=== PATIENT | female | born 1930 | race Caucasian/White ===

== ENCOUNTER 2018-02-21 10:08 | Emergency (ER) | payer OTHER ==
[2018-02-21] MEDS ORDERED: LIDOCAINE 1% W/EPI 1:100,000 MDV 50 ML VIAL ONE (10:27)
--- NOTE | 2018-02-21 11:11 | ER ---
Nurse's Notes [facility] Name: Beata Mayer Age: 87 yrs Sex: Female : 1930 Arrival Date: 02/21/2018 Time: 10:12 Bed 6 Private MD: Diagnosis: Cutaneous abscess of buttock Presentation: 02/21 10:12 Presenting complaint: EMS states: sent here for I\T\D of abscess to left buttock. EMS aa5 reports pt's O2 sat was 84% RA and increased to 98% via 4 L NC, EMS denies any respiratory distress. [facility] reported pt was recently diagnosed with Pneumonia and began taking Levaquin 500 mg Daily 02/19/18. Transition of care: patient was received from another setting of care (long-term care facility), [facility]. Onset of symptoms was February 21, 2018. Risk Assessment: Do you want to hurt yourself or someone else? Other: Pt is confused, Hx. Alzheimer's. Care prior to arrival: None. 10:12 Method Of Arrival: EMS: [facility] aa5 10:12 Acuity: KELBY 3 aa5 10:29 Initial Sepsis Screen: Does the patient meet any 2 criteria? No. Patient's initial la1 sepsis screen is negative. Does the patient have a suspected source of infection? Yes: Skin breakdown/wound. Historical: - Allergies: 10:18 Morphine; aa5 10:18 PENICILLINS; aa5 10:18 sertraline; aa5 - Home Meds: 10:33 Levaquin 500 mg Oral tab 1 tab once daily [Active]; Lantus 100 unit/mL Sub-Q soln 25 aa5 units once a day [Active]; Santyl 250 unit/gram Topical oint apply to R buttock I\T\D sites daily [Active]; tramadol 50 mg Oral tab 1 tab every 6 hours [Active]; Acidophilus Oral cap daily [Active]; Risperdal 0.5 mg Oral tab at bedtime [Active]; GlycoLax 17 gram/dose oral powd once daily [Active]; Exelon 4.6 mg/24 hr transdermal pt24 once daily [Active]; trazodone 50 mg Oral tab at bedtime [Active]; docusate sodium 100 mg Oral cap 2 times per day [Active]; Novolog Sub-Q per sliding scale [Active]; folic acid 800 mcg Oral tab once daily [Active]; amlodipine 5 mg tab once daily [Active]; nitrofurantoin macrocrystal 100 mg Oral cap once daily [Active]; canagliflozin oral oral [Active]; aspirin 81 mg Oral chew 1 tab once daily [Active]; lisinopril 40 mg Oral tab 1 tab once daily [Active]; sitagliptin oral oral 100mg once a day [Active]; Namenda 10 mg oral tab 1 tab 2 times per day [Active]; carvedilol 12.5 mg oral tab 2 times per day [Active]; omeprazole 20 mg Oral cpDR once daily [Active]; [place] Thyroid 30 mg Oral tab daily [Active]; Triamcinolone Acetonide [place] apply to rash as needed [Active]; acetaminophen 650 mg Oral TbER every 6 hours as needed [Active]; - PMHx: 10:18 Arthritis; Urinary incontinence; Hypothyroidism; Hypertension; GERD; Diabetes - NIDDM; aa5 Alzheimers; Depression; Anxiety; Pneumonia; 10:18 COPD; aa5 - PSHx: 10:18 Knee surgery; hip surgery; aa5 - Immunization history:: Adult Immunizations up to date. - Ebola Screening: : No symptoms or risks identified at this time. - Social history:: Smoking status: unknown. Screenin:29 Abuse screen: Denies threats or abuse. Nutritional screening: No deficits noted. la1 Tuberculosis screening: No symptoms or risk factors identified. Fall Risk No fall in past 12 months (0 pts). Secondary diagnosis (15 points) No IV (0 pts). Ambulatory Aid- None/Bed Rest/Nurse Assist (0 pts). Gait- Normal/Bed Rest/Wheelchair (0 pts) Mental Status- Overestimates/Forgets Limitations (15 pts.). Total Caldera Fall Scale indicates High Risk Score (45 or more points). Side Rails Up X 2. Assessment: 10:25 Reassessment: Abscess noted to left gluteus, approximately quater-sized, no drainage aa5 noted. . 10:28 General: Appears in no apparent distress. Behavior is calm, cooperative. Pain: Denies la1 pain. Neuro: Level of Consciousness is awake, alert, obeys commands, Oriented to person. Cardiovascular: Capillary refill < 3 seconds Patient's skin is warm and dry. Respiratory: Airway is patent Respiratory effort is even, unlabored, Respiratory pattern is regular, symmetrical, Breath sounds are diminished bilaterally. GI: Abdomen is obese, Bowel sounds present X 4 quads. Abd is soft and non tender X 4 quads. : No signs and/or symptoms were reported regarding the genitourinary system. 11:13 Reassessment: Patient appears in no apparent distress at this time. Patient and/or ch family updated on plan of care and expected duration. Pain level reassessed. 11:15 Reassessment: Report given to WENDI Reddy at [facility], nurse reports they aa5 will arrange transportation back to group home. . Vital Signs: 10:26 BP 127 / 87; Pulse 72; Resp 18; Temp 98.4; Pulse Ox 97% on R/A; la1 11:51 BP 120 / 75; Pulse 70; Resp 18; Pulse Ox 96% on R/A; la1 ED Course: 10:12 Patient arrived in ED. aa5 10:12 Arm band placed on. aa5 10:13 Cj Almodovar PA is PHCP. [facility] 10:13 Iker Pichardo MD is Attending Physician. [facility] 10:20 Triage completed. aa5 10:26 Bar Barrera RN is Primary Nurse. la1 10:29 Placed in gown. Bed in low position. Call light in reach. Pulse ox on. NIBP on. la1 10:50 Assist provider with I \T\ D: of an abscess on left gluteus Set up I\T\D tray. Performed by aa 5 Cj JAIME Wound packed. iodoform gauze, Dressing with gauze and tegaderm Patient tolerated well. 12:00 Patient did not have IV access during this emergency room visit. aa5 Administered Medications: 10:30 Drug: Lidocaine (1 %) 20 ml Volume: 20 ml; Route: Infiltration; la1 11:52 Follow up: Response: No adverse reaction la1 Outcome: 11:10 Discharge ordered by . [facility] 12:00 Discharged to group home. Report called to ASHLEY Hoover aa5 12:00 Condition: stable 12:00 Discharge instructions given to pt's nurse Instructed on discharge instructions, medication usage, Demonstrated understanding of instructions, follow-up care, medications. 12:04 Patient left the ED. aa5 Signatures: Ai Bowling, RN RN Cj Almodovar PA PA jmm Calderon, Audri, RN RN aa5 Bar Barrera RN RN la1 Corrections: (The following items were deleted from the chart) 10:28 10:26 BP 127 / 87; Pulse 72bpm; Resp 18bpm; Pulse Ox 99% 4 lpm Nasal Cannula; la1 la1 11:11 10:12 Transition of care: patient was not received from another setting of care. aa5 la1
--- NOTE | 2018-02-21 11:11 | EDPHYS ---
Physician Documentation [facility] Name: Beata Mayer Age: 87 yrs Sex: Female : 1930 Arrival Date: 02/21/2018 Time: 10:12 Bed 6 Private MD: ED Physician Iker Pichardo HPI: 02/21 10:28 This 87 yrs old Female presents to ER via EMS with complaints of Abscess. [facility] 10:28 The patient presents with an abscess of the left gluteus chary. Onset: The [facility] symptoms/episode began/occurred at an unknown time. Possible cause(s): unknown. Associated signs and symptoms: Pertinent negatives: fever. This is an 87 year old female with a history of HTN, hypothyroidism that presents to the ED with an abscess to the left buttock. According to EMS the patient is currently on day 2 of Levaquin for pneumonia. . Historical: - Allergies: 10:18 Morphine; aa5 10:18 PENICILLINS; aa5 10:18 sertraline; aa5 - Home Meds: 10:33 Levaquin 500 mg Oral tab 1 tab once daily [Active]; Lantus 100 unit/mL Sub-Q soln 25 aa5 units once a day [Active]; Santyl 250 unit/gram Topical oint apply to R buttock I\T\D sites daily [Active]; tramadol 50 mg Oral tab 1 tab every 6 hours [Active]; Acidophilus Oral cap daily [Active]; Risperdal 0.5 mg Oral tab at bedtime [Active]; GlycoLax 17 gram/dose oral powd once daily [Active]; Exelon 4.6 mg/24 hr transdermal pt24 once daily [Active]; trazodone 50 mg Oral tab at bedtime [Active]; docusate sodium 100 mg Oral cap 2 times per day [Active]; Novolog Sub-Q per sliding scale [Active]; folic acid 800 mcg Oral tab once daily [Active]; amlodipine 5 mg tab once daily [Active]; nitrofurantoin macrocrystal 100 mg Oral cap once daily [Active]; canagliflozin oral oral [Active]; aspirin 81 mg Oral chew 1 tab once daily [Active]; lisinopril 40 mg Oral tab 1 tab once daily [Active]; sitagliptin oral oral 100mg once a day [Active]; Namenda 10 mg oral tab 1 tab 2 times per day [Active]; carvedilol 12.5 mg oral tab 2 times per day [Active]; omeprazole 20 mg Oral cpDR once daily [Active]; [place] Thyroid 30 mg Oral tab daily [Active]; Triamcinolone Acetonide [place] apply to rash as needed [Active]; acetaminophen 650 mg Oral TbER every 6 hours as needed [Active]; - PMHx: 10:18 Arthritis; Urinary incontinence; Hypothyroidism; Hypertension; GERD; Diabetes - NIDDM; aa5 Alzheimers; Depression; Anxiety; Pneumonia; 10:18 COPD; aa5 - PSHx: 10:18 Knee surgery; hip surgery; aa5 - Immunization history:: Adult Immunizations up to date. - Ebola Screening: : No symptoms or risks identified at this time. - Social history:: Smoking status: unknown. ROS: 10:28 Constitutional: Negative for fever, chills, and weight loss, Cardiovascular: Negative [facility] for chest pain, palpitations, and edema, Respiratory: Negative for shortness of breath, cough, wheezing, and pleuritic chest pain. 10:28 Skin: Positive for swelling. 10:28 All other systems are negative. Exam: 10:28 Head/Face: atraumatic. Chest/axilla: Normal chest wall appearance and motion. [facility] Cardiovascular: Regular rate and rhythm. No edema appreciated Respiratory: Normal respirations, no respiratory distress appreciated 10:28 Constitutional: The patient appears alert, anxious. 10:28 Abdomen/GI: Inspection: obese 10:28 Skin: fluctuant abscess noted to the left buttock. . 10:28 Neuro: Orientation: is normal, Mentation: is normal, Memory: is normal. Vital Signs: 10:26 BP 127 / 87; Pulse 72; Resp 18; Temp 98.4; Pulse Ox 97% on R/A; la1 11:51 BP 120 / 75; Pulse 70; Resp 18; Pulse Ox 96% on R/A; la1 Procedures: 11:08 I \T\ D: Incision and drainage was performed for an abscess of the left Prepped with [facility] Betadine, Anesthetized with 10 ml's 1% Lidocaine. Incised with #11 blade. Drained small amount purulent fluid. Loculations removed. Abscess cavity explored. Packed with iodoform gauze, Dressing: sterile 4x4 gauze, the patient tolerated the procedure well. MDM: 10:24 Patient medically screened. [facility] 11:08 Data reviewed: vital signs, nurses notes. Counseling: I had a detailed discussion with luis the patient and/or guardian regarding: the historical points, exam findings, and any diagnostic results supporting the discharge/admit diagnosis, the need for outpatient follow up, to return to the emergency department if symptoms worsen or persist or if there are any questions or concerns that arise at home. Administered Medications: 10:30 Drug: Lidocaine (1 %) 20 ml Volume: 20 ml; Route: Infiltration; la1 11:52 Follow up: Response: No adverse reaction la1 Disposition: 02/21/18 11:10 Discharged to Home. Impression: Cutaneous abscess of buttock. - Condition is Stable. - Discharge Instructions: Skin Abscess. - Prescriptions for Clindamycin HCl 300 mg Oral Capsule - take 1 capsule by ORAL route every 6 hours for 10 days; 40 capsule. - Medication Reconciliation Form, Thank You Letter, Antibiotic Education, Prescription Opioid Use form. - Follow up: Private Physician; When: 2 - 3 days; Reason: Recheck today's complaints, Continuance of care, Re-evaluation by your physician. Addendum: 02/23/2018 07:49 Co-signature as Attending Physician, Iker Pichardo MD I agree with the assessment and w a plan of care. Signatures: Cj Almodovar PA PA Payton Anderson, RN RN aa5 Bar Barrera RN RN la1 Iker Pichardo MD MD al Corrections: (The following items were deleted from the chart) 02/21 12:04 11:10 02/21/2018 11:10 Discharged to Home. Impression: Cutaneous abscess of buttock. aa5 Condition is Stable. Forms are Medication Reconciliation Form, Thank You Letter, Antibiotic Education, Prescription Opioid Use. Follow up: Private Physician; When: 2 - 3 days; Reason: Recheck today's complaints, Continuance of care, Re-evaluation by your physician. luis
[2018-02-21 12:09] VITALS: TEMP 98.4
[2018-02-21 12:11] VITALS: BP 120/75; O2SAT 96
== END 2018-02-21 12:04 | disposition home or self-care (01) ==
LOC: ER 10:08
PROC: 0J990ZZ Drainage of Buttock Subcutaneous Tissue and Fascia, Open Approach (ICD-10-PCS; principal; 2018-02-21)
DX: L02.31 Cutaneous abscess of buttock (principal); Z88.0 Allergy status to penicillin; Z88.6 Allergy status to analgesic agent; K21.9 Gastro-esophageal reflux disease without esophagitis; E11.9 Type 2 diabetes mellitus without complications; E03.9 Hypothyroidism, unspecified; I10 Essential (primary) hypertension; F41.8 Other specified anxiety disorders
CPT/HCPCS: 99284

== ENCOUNTER 2018-06-26 08:03 | Inpatient (IN) | payer OTHER ==
[2018-06-26] MEDS ORDERED: METHYLPREDNISOLONE 125 MG INJ ONE (08:28)
[2018-06-26] MEDS ORDERED: LEVALBUTEROL 1.25 MG/3 ML NEB ONE (08:28)
[2018-06-26] MEDS ORDERED: MAGNESIUM SULFATE 1 gm IVPB 1 GM/100 ML BAG IV ONE (08:29)
--- NOTE | 2018-06-26 09:02 | RAD REPORT ---
EXAM DESCRIPTION: RAD - Chest Single View - 06/26/2018 8:55 am CLINICAL HISTORY: Dyspnea;Cough Chest pain. COMPARISON: CHEST SINGLE VIEW dated 11/01/2011; CHEST SINGLE VIEW dated 09/04/2011 FINDINGS: Portable technique limits examination quality. Mild interstitial pulmonary edema seen. The heart is enlarged moderately. Chronic deformity of proxim al right humerus and advanced degenerative change left shoulder remain stable. IMPRESSION: Mild CHF.
[2018-06-26 09:08] LABS: BUN Blood Urea Nitrogen 19 mg/dL (7-18); Bicarbonate 27 mmol/L (21-32); Glucose Level 124 mg/dL (74-106); Magnesium 1.6 mg/dL (1.8-2.4); NT PRO-BNP 1276 pg/mL (<450); Sodium Level 141 mmol/L (136-145); Troponin (Emerg Dept Use Only) < 0.02 ng/mL (0.0-0.045)
--- NOTE | 2018-06-26 10:47 | EDPHYS ---
Physician Documentation [facility] Name: Beata Mayer Age: 87 yrs Sex: Female : 1930 Arrival Date: 06/26/2018 Time: 08:09 Bed 3 Private MD: ED Physician William Patten HPI: 06/26 08:20 This 87 yrs old Female presents to ER via Unassigned with complaints of rn Shortness Of Breath. 08:20 The patient has shortness of breath at rest. Onset: The symptoms/episode began/occurred rn at an unknown time. Duration: The symptoms are continuous. The patient's shortness of breath has no apparent modifying factors. Severity of symptoms: At their worst the symptoms were moderate in the emergency department the symptoms have improved. It is unknown whether or not the patient has had similar symptoms in the past. Per EMS, patient with hx of COPD, noted to have decreased responsiveness and AMS this AM, unknown onset, low O2, was found hunched over, EMS sat her up and administered O2 and albuterol with patient now at baseline, which per shelter is oriented x 1. . Historical: - Allergies: 09:56 Morphine; sv 09:56 PENICILLINS; sv 09:56 sertraline; sv - Home Meds: 11:03 acetaminophen 650 mg Oral TbER every 6 hours as needed [Active]; Acidophilus Oral cap aj1 daily [Active]; amlodipine 5 mg oral tab [Active]; [place] Thyroid 30 mg Oral tab daily [Active]; aspirin 81 mg Oral TbEC 1 tab once daily [Active]; canagliflozin 300 mg Oral once daily [Active]; carvedilol 12.5 mg Oral tab 2 times per day [Active]; docusate sodium 100 mg Oral cap once daily [Active]; folic acid 800 mcg Oral tab once daily [Active]; GlycoLax 17 gram/dose Oral powd once daily [Active]; Januvia 100 mg Oral tab 1 tab once daily [Active]; Lantus 100 unit/mL Sub-Q soln 25 units once a day [Active]; lisinopril 40 mg Oral tab 1 tab once daily [Active]; Namenda 10 mg Oral tab 1 tab 2 times per day [Active]; nitrofurantoin macrocrystal 100 mg Oral cap once daily [Active]; Novolog Sub-Q per sliding scale [Active]; omeprazole 20 mg Oral cpDR 1 cap once daily [Active]; Risperdal 0.5 mg Oral tab at bedtime [Active]; Depakote 125 mg Oral TbEC 1 tab 2 times per day [Active]; - PMHx: 09:56 Alzheimers; Anxiety; Arthritis; COPD; Dementia; Depression; Diabetes - NIDDM; GERD; sv Hypertension; Hypothyroidism; Pneumonia; Urinary incontinence; - PSHx: 09:56 Knee surgery; hip surgery; sv - Immunization history:: Adult Immunizations up to date. - Social history:: Smoking status: Patient/guardian denies using tobacco. - Family history:: not pertinent. - Ebola Screening: : No symptoms or risks identified at this time. - Hospitalizations: : No recent hospitalization is reported. - Code Status:: Full code. ROS: 08:20 Constitutional: Negative for fever, chills, and weight loss, Eyes: Negative for injury, rn pain, redness, and discharge, ENT: Negative for injury, pain, and discharge, Cardiovascular: Negative for chest pain, palpitations, and edema, Respiratory: Negative for pleuritic chest pain Abdomen/GI: Negative for abdominal pain, nausea, vomiting, diarrhea, and constipation, MS/Extremity: Negative for injury and deformity, Skin: Negative for injury, rash, and discoloration, Neuro: Negative for headache, weakness, numbness, tingling, and seizure. Exam: 08:20 Constitutional: This is a well developed, well nourished patient who is sleeping, rn awakens to voice Head/Face: Normocephalic, atraumatic. Eyes: Pupils equal round and reactive to light, extra-ocular motions intact. Lids and lashes normal. Conjunctiva and sclera are non-icteric and not injected. Cornea within normal limits. Periorbital areas with no swelling, redness, or edema. ENT: dry MM Cardiovascular: Regular rate and rhythm. No JVD. No pulse deficits. Respiratory: + mild tachypnea with diffuse exp wheezing, no retractions Abdomen/GI: soft, non-tender Skin: Warm, dry Neuro: Sleeping, awakens to voice, responds and localizes to painful stimuli/IV placement, doesn't answer commands. Vital Signs: 08:06 BP 129 / 68; Pulse 78; Resp 26; Temp 98(A); Pulse Ox 100% on 2 lpm NC; Pain 0/10; sv 09:00 BP 117 / 84; Pulse 78; Resp 28; Pulse Ox 97% on 2 lpm NC; sv 09:30 BP 124 / 73; Pulse 73 MON; Resp 23; Pulse Ox 97% on 2 lpm NC; sv 10:38 BP 130 / 98; Pulse 84; Resp 24; Pulse Ox 98% on 2 lpm NC; aj1 11:47 BP 127 / 88; Pulse 74; Resp 20; Pulse Ox 93% on R/A; aj1 16:21 BP 117 / 10; Pulse 75; Resp 20; Pulse Ox 94% on R/A; aj1 09:30 A fib sv MDM: 08:09 Patient medically screened. rn 10:43 Differential diagnosis: Anxiety Reaction CHF exacerbation, Chronic Obstructive rn Pulmonary Disease Myocardial Infarction Pneumothorax pulmonary edema, Sepsis. Data reviewed: vital signs, nurses notes, lab test result(s), EKG, radiologic studies, plain films, and as a result, I will admit patient. Counseling: I had a detailed discussion with the patient and/or guardian regarding: the historical points, exam findings, and any diagnostic results supporting the discharge/admit diagnosis, lab results, radiology results, the need for further work-up and treatment in the hospital. Response to treatment: the patient's symptoms have mildly improved after treatment, and as a result, I will admit patient. Admission orders: after a detailed discussion of the patient's condition and case, the admit orders are written by me. ED course: Pt with hypxia and AMS, improved with breathing treatments, no pneumonia on CXR, awaiting urine sample, will admit to Dr. Nguyen for CHF/COPD exacerbation and AMS.. 06/26 08:12 Order name: Blood Culture Adult (2) rn 06/26 08:12 Order name: BMP; Complete Time: :30 rn 06/26 08:12 Order name: CBC with Diff rn 06/26 08:12 Order name: Magnesium; Complete Time: : rn 06/26 08:12 Order name: NT PRO-BNP; Complete Time: 09:31 rn 06/26 08:12 Order name: Troponin (emerg Dept Use Only); Complete Time: : rn 06/26 08:12 Order name: XRAY CXR (1 view); Complete Time: 09:04 rn 06/26 08:12 Order name: Flu; Complete Time: 09:04 rn 06/26 08:46 Order name: Urine Microscopic Only rn 06/26 08:46 Order name: Urine Culture rn 06/26 11:24 Order name: Urine Dipstick--Ancillary (enter results) eb 06/26 08:12 Order name: EKG; Complete Time: 08:13 rn 06/26 08:12 Order name: Cardiac monitoring; Complete Time: 09: rn 06/26 08:12 Order name: EKG - Nurse/Tech; Complete Time: 09: rn 06/26 08:12 Order name: IV Saline Lock; Complete Time: 09: rn 06/26 08:12 Order name: Labs collected and sent; Complete Time: : rn 06/26 08:12 Order name: O2 Per Protocol; Complete Time: 09: rn 06/26 08:12 Order name: O2 Sat Monitoring; Complete Time: 09: rn 06/26 08:46 Order name: Urine Dipstick-Ancillary (obtain specimen); Complete Time: 11:24 rn 06/26 11:44 Order name: CONS Physician Consult EDMS Administered Medications: 08:15 Drug: Xopenex (3) 1.25 mg Route: Inhalation; sv 08:28 Drug: SOLU-Medrol 125 mg Route: IVP; Site: right hand; sv 09:00 Follow up: Response: No adverse reaction sv 08:30 Drug: Magnesium Sulfate 1 grams Route: IVPB; Infused Over: 1 hrs; Site: right hand; sv 09:30 Follow up: Response: No adverse reaction; IV Status: Completed infusion; IV Intake: sv 100ml 11:29 Drug: Lasix 20 mg Route: IVP; Site: right forearm; aj1 11:48 Follow up: Response: No adverse reaction aj1 Disposition: 06/26/18 10:46 Hospitalization ordered by Ania Nguyen for Inpatient Admission. Preliminary diagnosis are Dyspnea, unspecified, Altered mental status, unspecified, Chronic obstructive pulmonary disease, unspecified, Pulmonary edema. - Bed requested for Intensive Care Unit. - Status is Inpatient Admission. aj1 - Condition is Stable. - Problem is new. - Symptoms have improved. UTI on Admission? No Signatures: Dispatcher [employer] EDMS Margaret Irvin RN RN aj1 Sonia Lemon RN RN Radha Garner, ASHLEY RAMIREZ William Patten MD MD clinical quality rn: (The following items were deleted from the chart) 14:54 10:46 Hospitalization Ordered by Ania Nguyen MD for Inpatient Admission. Preliminary dw diagnosis is Dyspnea, unspecified; Altered mental status, unspecified; Chronic obstructive pulmonary disease, unspecified; Pulmonary edema. Bed requested for Telemetry/MedSurg (Inpatient). Status is Inpatient Admission. Condition is Stable. Problem is new. Symptoms have improved. UTI on Admission? No. rn 15:53 14:54 06/26/2018 10:46 Hospitalization Ordered by Ania Nguyen MD for Inpatient dw Admission. Preliminary diagnosis is Dyspnea, unspecified; Altered mental status, unspecified; Chronic obstructive pulmonary disease, unspecified; Pulmonary edema. Bed requested for Intensive Care Unit. Status is Inpatient Admission. Condition is Stable. Problem is new. Symptoms have improved. UTI on Admission? No. dw 17:04 15:53 06/26/2018 10:46 Hospitalization Ordered by Ania Nguyen MD for Inpatient aj1 Admission. Preliminary diagnosis is Dyspnea, unspecified; Altered mental status, unspecified; Chronic obstructive pulmonary disease, unspecified; Pulmonary edema. Bed requested for Intensive Care Unit. Status is Inpatient Admission. Condition is Stable. Problem is new. Symptoms have improved. UTI on Admission? No. dw
--- NOTE | 2018-06-26 10:47 | ER ---
Nurse's Notes [facility] Name: Beata Mayer Age: 87 yrs Sex: Female : 1930 Arrival Date: 06/26/2018 Time: 08:09 Bed 3 Private MD: Diagnosis: Dyspnea, unspecified;Altered mental status, unspecified;Chronic obstructive pulmonary disease, unspecified;Pulmonary edema Presentation: 06/26 08:03 Presenting complaint: EMS states: called out for unresponsiveness, O2 82% on O2 \T\ 2L sv per NC, warm to touch, upper lobes wheezing, lower lobes rhonchi, productive cough, Temp 99.9 SR-100 BP 112/70 BS-111, 20G R AC, Albuterol x 1. Pt's normal is alert to self. Transition of care: patient was received from another setting of care (long-term care [facility]), [facility]. Onset of symptoms was June 26, 2018. Risk Assessment: Do you want to hurt yourself or someone else? Patient reports no desire to harm self or others. Initial Sepsis Screen: Does the patient meet any 2 criteria? RR > 20 per min. Yes Does the patient have a suspected source of infection? No. Patient's initial sepsis screen is negative. Care prior to arrival: Medication(s) given: Albuterol Neb x 1, IV initiated. 20 GA, in the right antecubital area, Glucose check: 111. 08:03 Method Of Arrival: EMS: [facility] sv 09:45 Acuity: KELBY 2 dm5 Triage Assessment: 08:05 General: Appears uncomfortable, obese, Behavior is agitated, uncooperative. Pain: sv Denies pain. Neuro: Level of Consciousness is awake, alert, confused, Oriented to person, Moves all extremities. Respiratory: Airway is patent Respiratory effort is even, labored, Respiratory pattern is symmetrical, tachypnea Breath sounds with wheezes bilaterally. Onset: The symptoms/episode began/occurred this morning, the patient has moderate shortness of breath. Derm: Skin is normal. Historical: - Allergies: 09:56 Morphine; sv 09:56 PENICILLINS; sv 09:56 sertraline; sv - Home Meds: 11:03 acetaminophen 650 mg Oral TbER every 6 hours as needed [Active]; Acidophilus Oral cap aj1 daily [Active]; amlodipine 5 mg oral tab [Active]; [place] Thyroid 30 mg Oral tab daily [Active]; aspirin 81 mg Oral TbEC 1 tab once daily [Active]; canagliflozin 300 mg Oral once daily [Active]; carvedilol 12.5 mg Oral tab 2 times per day [Active]; docusate sodium 100 mg Oral cap once daily [Active]; folic acid 800 mcg Oral tab once daily [Active]; GlycoLax 17 gram/dose Oral powd once daily [Active]; Januvia 100 mg Oral tab 1 tab once daily [Active]; Lantus 100 unit/mL Sub-Q soln 25 units once a day [Active]; lisinopril 40 mg Oral tab 1 tab once daily [Active]; Namenda 10 mg Oral tab 1 tab 2 times per day [Active]; nitrofurantoin macrocrystal 100 mg Oral cap once daily [Active]; Novolog Sub-Q per sliding scale [Active]; omeprazole 20 mg Oral cpDR 1 cap once daily [Active]; Risperdal 0.5 mg Oral tab at bedtime [Active]; Depakote 125 mg Oral TbEC 1 tab 2 times per day [Active]; - PMHx: 09:56 Alzheimers; Anxiety; Arthritis; COPD; Dementia; Depression; Diabetes - NIDDM; GERD; sv Hypertension; Hypothyroidism; Pneumonia; Urinary incontinence; - PSHx: 09:56 Knee surgery; hip surgery; sv - Immunization history:: Adult Immunizations up to date. - Social history:: Smoking status: Patient/guardian denies using tobacco. - Family history:: not pertinent. - Ebola Screening: : No symptoms or risks identified at this time. - Hospitalizations: : No recent hospitalization is reported. - Code Status:: Full code. Screenin:38 Abuse screen: Denies threats or abuse. Denies injuries from another. Nutritional aj1 screening: No deficits noted. Tuberculosis screening: No symptoms or risk factors identified. 16:57 Fall Risk aj1 16:58 Fall Risk No fall in past 12 months (0 pts). Secondary diagnosis (15 points) aj1 Alzheimer's, dementia, IV access (20 points). Ambulatory Aid- None/Bed Rest/Nurse Assist (0 pts). Gait- Normal/Bed Rest/Wheelchair (0 pts) Mental Status- Overestimates/Forgets Limitations (15 pts.). Total Caldera Fall Scale indicates High Risk Score (45 or more points). Frequent Obs/Assessments Occuring Family Present and informed to notify staff if the need to leave the bedside. Assessment: 08:30 Reassessment: Patient appears in no apparent distress at this time. No changes from sv previously documented assessment. Patient and/or family updated on plan of care and expected duration. Pain level reassessed. 09:30 Reassessment: Patient appears in no apparent distress at this time. No changes from sv previously documented assessment. Patient and/or family updated on plan of care and expected duration. Pain level reassessed. Pt appears to be sleeping with eyes closed. Family at the bedside. 10:38 General: Appears in no apparent distress. comfortable, Behavior is restless, aj1 uncooperative. Pain: Unable to use pain scale. Does not appear to understand pain scale. FLACC scale score is 0 out of 10. Neuro: Level of Consciousness is awake, alert, Oriented to person. Cardiovascular: Patient's skin is warm and dry. Rhythm is atrial fibrillation. Respiratory: Airway is patent Respiratory effort is even, unlabored, Respiratory pattern is regular, symmetrical, Breath sounds with rhonchi bilaterally. Parent/caregiver reports the patient having cough that is productive, persistent. GI: No signs and/or symptoms were reported involving the gastrointestinal system. : No signs and/or symptoms were reported regarding the genitourinary system. Derm: No signs and/or symptoms reported regarding the dermatologic system. Skin is pink, warm \T\ dry. normal. Musculoskeletal: Circulation, motion, and sensation intact. 11:46 Reassessment: Patient appears in no apparent distress at this time. No changes from aj1 previously documented assessment. Patient and/or family updated on plan of care and expected duration. Pain level reassessed. General:. Neuro: Level of Consciousness is awake, alert, Oriented to person. Cardiovascular: Patient's skin is warm and dry. Rhythm is atrial fibrillation. Respiratory: Airway is patent Respiratory effort is even, unlabored, Respiratory pattern is regular, symmetrical. 12:45 Reassessment: Patient appears in no apparent distress at this time. No changes from aj1 previously documented assessment. Patient and/or family updated on plan of care and expected duration. Pain level reassessed. 13:22 Reassessment: Patient appears in no apparent distress at this time. No changes from aj1 previously documented assessment. Patient and/or family updated on plan of care and expected duration. Pain level reassessed. 14:30 Reassessment: Patient appears in no apparent distress at this time. No changes from aj1 previously documented assessment. Patient and/or family updated on plan of care and expected duration. Pain level reassessed. General: Appears in no apparent distress. comfortable, Behavior is calm, cooperative. Neuro: Level of Consciousness is awake, alert, Oriented to person. Cardiovascular: Patient's skin is warm and dry. Rhythm is atrial fibrillation. Respiratory: Airway is patent Respiratory effort is even, unlabored, Respiratory pattern is regular, symmetrical. GI: No signs and/or symptoms were reported involving the gastrointestinal system. : No signs and/or symptoms were reported regarding the genitourinary system. Derm: Skin is pink, warm \T\ dry. normal. Musculoskeletal: Circulation, motion, and sensation intact. 15:30 Reassessment: Patient appears in no apparent distress at this time. No changes from aj1 previously documented assessment. Patient and/or family updated on plan of care and expected duration. Pain level reassessed. 16:20 Reassessment: Patient appears in no apparent distress at this time. No changes from aj1 previously documented assessment. Patient and/or family updated on plan of care and expected duration. Pain level reassessed. Vital Signs: 08:06 BP 129 / 68; Pulse 78; Resp 26; Temp 98(A); Pulse Ox 100% on 2 lpm NC; Pain 0/10; sv 09:00 BP 117 / 84; Pulse 78; Resp 28; Pulse Ox 97% on 2 lpm NC; sv 09:30 BP 124 / 73; Pulse 73 MON; Resp 23; Pulse Ox 97% on 2 lpm NC; sv 10:38 BP 130 / 98; Pulse 84; Resp 24; Pulse Ox 98% on 2 lpm NC; aj1 11:47 BP 127 / 88; Pulse 74; Resp 20; Pulse Ox 93% on R/A; aj1 16:21 BP 117 / 10; Pulse 75; Resp 20; Pulse Ox 94% on R/A; aj1 09:30 A fib sv ED Course: 08:09 Patient arrived in ED. sv 08:09 William Patten MD is Attending Physician. rn 08:09 Sonia Lemon RN is Primary Nurse. sv 08:15 Arm band placed on. sv 08:25 Inserted saline lock: 20 gauge in right forearm, using aseptic technique. Blood bp collected. 08:52 XRAY CXR (1 view) In Process Unspecified. EDMS 09:28 EKG done, by ED staff, reviewed by William Patten MD. jb1 09:45 Triage completed. dm5 10:03 Report given to Serena RAMIREZ. sv 10:38 No provider procedures requiring assistance completed. aj1 10:38 Patient has correct armband on for positive identification. Bed in low position. Call aj1 light in reach. Side rails up X2. radiation monitor on. Pulse ox on. NIBP on. 10:45 Ania Nguyen MD is Hospitalizing Provider. rn 11:23 Urine collected: straight cath specimen, cloudy, jennifer colored. jb1 16:21 Patient admitted, IV remains in place. aj1 19:01 Primary Nurse role handed off by Sonia Lemon RN sv Administered Medications: 08:15 Drug: Xopenex (3) 1.25 mg Route: Inhalation; sv 08:28 Drug: SOLU-Medrol 125 mg Route: IVP; Site: right hand; sv 09:00 Follow up: Response: No adverse reaction sv 08:30 Drug: Magnesium Sulfate 1 grams Route: IVPB; Infused Over: 1 hrs; Site: right hand; sv 09:30 Follow up: Response: No adverse reaction; IV Status: Completed infusion; IV Intake: sv 100ml 11:29 Drug: Lasix 20 mg Route: IVP; Site: right forearm; aj1 11:48 Follow up: Response: No adverse reaction aj Intake: 09:30 IV: 100ml; Total: 100ml. sv Outcome: 10:46 Decision to Hospitalize by Provider. rn 16:56 Admitted to ICU accompanied by nurse, via stretcher, with chart, Report called to aj1 ASHLEY Simmons 16:56 Condition: stable 16:56 Discharge instructions given to family, Instructed on the need for admit, Demonstrated understanding of instructions. 17:04 Patient left the ED. aj1 Signatures: Dispatcher [employer] EDMS RodneyChaz jb1 Margaret Irvin RN RN aj1 Markwardt, Deana, RN RN dmSonia Escobar RN RN Patten, William, MD MD rn Beverly, Chetan, RN RN bp
[2018-06-26] MEDS ORDERED: FUROSEMIDE 20 MG/ 2ML VIAL ONE (11:36)
[2018-06-26 11:40] LABS: Urine Bacteria <20 /HPF (<20); Urine Culture Reflex Order NOT NEEDED
[2018-06-26 11:41] LABS: Urine Mucus 2+ /HPF (NONE SEEN)
[2018-06-26 11:43] LABS: Urine Blood TRACE (NEG); Urine Glucose 3+ (NEG); Urine Protein NEGATIVE (NEG); Urine pH 5.5 (5.0-7.0)
--- NOTE | 2018-06-26 14:01 | EKG ---
Test Date: 2018-06-26 Test Time: 08:50:42 Aerodynamic Consultant: PAUL MEASUREMENT RESULTS: Intervals: Rate: 72 WA: QRSD: 84 QT: 368 QTc: 402 Pierce: P: WA: QRS: -1 T: 23 INTERPRETIVE STATEMENTS: Atrial fibrillation Low voltage QRS Cannot rule out Anterior infarct, age undetermined Abnormal ECG Compared to ECG 07/07/2017 09:18:32 Low QRS voltage now present Myocardial infarct finding now present Sinus bradycardia no longer present Electronically Signed On 06-26-18 13:58:44 HOSPITAL MANAGER by Chance Salazar
--- NOTE | 2018-06-26 14:01 | ECHO ---
HEIGHT: ft in WEIGHT: lb oz DATE OF STUDY: 06/16/[address]: Ania Nguyen MD 2-DIMENSIONAL: YES M.MODE: YES DOPPLER: YES COLOR FLOW: YES TDS: YES PORTABLE: DEFINITY: BUBBLE STUDY: DIAGNOSIS: CONGESTIVE HEART FAILURE EXACERBATION. CARDIAC HISTORY: CATHERIZATION: SURGERY: PROSTHETIC VALVE: PACEMAKER: MEASUREMENTS (cm) DIASTOLIC (NORMALS) SYSTOLIC (NORMALS) IVSd 1.4 (0.6-1.2) LA Diam 4.0 (1.9-4.0) LVEF 53% LVIDd 4.5 (3.5-5.7) LVIDs 3.3 (2.0-3.5) %FS 27% LVPWd 1.4 (0.6-1.2) Ao Diam 2.4 (2.0-3.7) 2 DIMENSIONAL ASSESSMENT: RIGHT ATRIUM: NORMAL LEFT ATRIUM: NORMAL RIGHT VENTRICLE: NORMAL LEFT VENTRICLE: NORMAL TRICUSPID VALVE: NORMAL MITRAL VALVE: NORMAL PULMONIC VALVE: NORMAL AORTIC VALVE: SCLEROSIS PERICARDIAL EFFUSION: NONE AORTIC ROOT: NORMAL LEFT VENTRICULAR WALL MOTION: NORMAL DOPPLER/COLOR FLOW: NORMAL COMMENTS: TECHNICALLY DIFFICULT STUDY. AORTIC SCLEROSIS. NORMAL LEFT VENTRICULAR SIZE AND FUNCTION. NO EFFUSION. TECHNOLOGIST: JDAEN MARIE
[2018-06-26 17:06] LABS: Absolute Lymphocytes (CBC) 0.3 K/uL (0.7-4.9); Absolute Monocytes 0.1 K/uL (0.1-1.3); Absolute Neutrophil 3.3 K/uL (1.8-8.0); Basophils % 0.4 % (0-1.3); Eosinophils % 0.1 % (0-4.4); Hematocrit 42.7 % (36.0-45.0); Lymphocytes % 9.2 % (15.3-44.8); MPV 9.4 fL (7.6-11.3); Monocytes % 2.9 % (3.3-12.3)
[2018-06-26] MEDS ORDERED: ACETAMINOPHEN 500 MG TAB PO PRN (17:08)
[2018-06-26] MEDS: ALBUTEROL 2.5 MG/3 ML NEB SOL NEB SCH ×2 (17:08→20:05)
[2018-06-26] MEDS: IPRATROPIUM BROM 0.5MG/2.5ML NEB SCH ×2 (17:08→20:05)
[2018-06-26] MEDS ORDERED: ONDANSETRON 4 MG/2 ML VIAL IV PRN (17:08)
[2018-06-26] MEDS ORDERED: D50W 25 GM/50 ML SYRINGE IV PRN (17:09)
[2018-06-26] MEDS ORDERED: GLUCAGON 1 MG/VIAL IM PRN (17:09)
--- NOTE | 2018-06-26 17:18 | P.HP ---
Certification for Inpatient Patient admitted to: Inpatient With expected LOS: >2 Midnights Patient will require the following post-hospital care: None Practitioner: I am a practitioner with admitting privileges, knowledge of patient current condition, hospital course, and medical plan of care. Services: Services provided to patient in accordance with Admission requirements found in Title 42 Section 412.3 of the Code of Federal Regulations Patient History Date of Service: 06/26/18 Reason for admission: SOB and AMS History of Present Illness: This is a 87-year-old female with significant past medical history of hypertension, diabetes, COPD, possible CHF, who presented to the ED from the alf with minimal responsiveness. Patient when initially picked up by EMS her oxygen saturation was 80-81%. Patient was given breathing treatment and along with oxygen by the EMS. Patient did have some improvement however when seen in the ER by the ER physician patient had minimal responsiveness and was having rales on physical exam. Most of the information was collected by the ER physician and EMS provider. I was not able to get any history on the patient has EMS provider was not available in no family was available at bedside. Patient was alert and oriented x1 during my exam. Patient does have a no flying dementia in usually is alert and oriented x1 however the change in responsiveness is what prompted a alf to send the patient here in the hospital. In the ER patient had lab work and imaging done. CBC is pending at this time along with pro calcitonin. X-ray was consistent with pulmonary edema versus COPD. Patient thus was admitted to the hospital for altered mental status and COPD exacerbation along with possible CHF exacerbation. Allergies Penicillins Allergy (Mild, Verified 06/26/18 17:21) Rash duloxetine HCl [From Cymbalta] Allergy (Verified 06/26/18 17:21) Unknown morphine Adverse Reaction (Severe, Verified 06/26/18 17:21) combative Zaukygg-[id number]-Mqh Reductase Inhibitor Allergy (Uncoded 06/26/18 17:21) Unknown Home Medications: Lisinopril 40 mg PO DAILY WITH BREAKFAST 09/05/11 Sitagliptin Phosphate [Januvia] 100 mg PO DAILY 09/05/11 Thyroid 30 mg PO DAILY 09/05/11 Amlodipine Besylate 10 mg PO DAILY WITH BREAKFAST 11/01/11 Omeprazole [Prilosec] 20 mg PO DAILY 11/01/11 Carvedilol [Coreg*] 12.5 mg PO BID 10/13/12 Memantine HCl [Namenda*] 10 mg PO BID 10/13/12 Albuterol Inhaler [Ventolin Inhaler*] 2 puff IH QID 06/15/13 Aspirin Enteric Coated [ASPIRIN 81 MG EC*] 81 mg PO DAILY 06/15/13 Budesonide/Formoterol Fumarate [Symbicort 160-4.5 Mcg Inhaler] 2 puff IH BID 12/20 Mirabegron [Myrbetriq] 25 mg PO DAILY 06/15/13 - Past Medical/Surgical History Diabetic: Yes Past Medical History: Unable to obtain Past Surgical History: Unable to obtain - Family History Family History: Reviewed- Non-Contributory - Social History Smoking Status: Unknown if ever smoked Alcohol use: No CD- Drugs: No Caffeine use: Yes Place of Residence: [facility] Review of Systems 10-point ROS is otherwise unremarkable Physical Examination - Physical Exam General: Demented, Mild distress HEENT: Atraumatic, PERRLA, Mucous membr. moist/pink, EOMI, Sclerae nonicteric Neck: Supple, 2+ carotid pulse no bruit, No LAD, Without JVD or thyroid abnormality Respiratory: Normal air movement, Crackles/rales, Expiratory wheezes, Inspiratory wheezes, Rhonchi/gurgles Cardiovascular: Regular rate/rhythm, Normal S1 S2 Gastrointestinal: Normal bowel sounds, No tenderness Musculoskeletal: No tenderness Integumentary: No rashes Neurological: Abnormal strength, Abnormal affect Lymphatics: No axilla or inguinal lymphadenopathy - Studies Laboratory Data (last 24 hrs) 06/26/18 08:30: WBC 4.1 L, Hgb DELIVERY AGENT, Hct DELIVERY AGENT, Plt Count DELIVERY AGENT 06/26/18 08:30: Sodium 141, Potassium 4.0, BUN 19 H, Creatinine 0.67, Glucose 124 H, Magnesium 1.6 L Microbiology Data (last 24 hrs): 06/26/18 08:30 Nasopharnyx Influenza Type A Antigen Screen - Final 06/26/18 08:30 Nasopharnyx Influenza Type B Antigen Screen - Final Assessment and Plan - Problems (Diagnosis) (1) Altered mental status Current Visit: Yes Status: Acute Plan: Altered mental status on admission. Patient had minimal responsiveness in the ER today. After getting oxygen therapy and breathing treatment back to being at baseline. -most likely toxic encephalopathy -underlying dementia with alert and oriented x1 -alert and oriented x1 per the alf patient is back to baseline Qualifiers: Altered mental status type: unspecified Qualified Code(s): R41.82 - Altered mental status, unspecified (2) COPD exacerbation Current Visit: Yes Status: Acute Plan: COPD exacerbation most likely secondary to viral etiology -WBC pending at this time. -duo nebs, steroids, oxygen at this time -initial flu culture negative -chest x-ray consistent with pulmonary edema versus COPD -Pro calcitonin pending at this time. If positive we can roll in bacterial infection. -will await for starting antibiotics at this time -pulmonology consulted awaiting for recommendations at this time (3) Pulmonary edema Current Visit: Yes Status: Acute Plan: Acute pulmonary edema most likely secondary to volume overload versus COPD exacerbation -IV Lasix b.i.d. at this time -echo is pending at this time -will repeat chest x-ray tomorrow morning -will monitor closely for improvement -currently saturating well Qualifiers: Chronicity: acute Qualified Code(s): J81.0 - Acute pulmonary edema (4) CHF exacerbation Current Visit: Yes Status: Chronic Plan: Possible CHF exacerbation. Last echocardiogram in 2012. -will repeat echocardiogram done this time -IV Lasix at this time b.i.d. -monitor eyes in 0 strictly along with fluid restriction Qualifiers: Heart failure type: diastolic Qualified Code(s): I50.33 - Acute on chronic diastolic (congestive) heart failure (5) Dementia Current Visit: Yes Status: Chronic Plan: Dementia with alert and oriented x1 -worsening this morning most likely secondary to toxic encephalopathy not back to baseline as per family member -in the ER was noted to pull out her lines and cardiac tele monitor -patient will need a sitter on a regular floor Qualifiers: Dementia type: Alzheimer's disease Alzheimer's disease onset: early-onset Dementia behavioral disturbance: without behavioral disturbance Qualified Code(s): G30.0 - Alzheimer's disease with early onset; F02.80 - Dementia in other diseases classified elsewhere without behavioral disturbance (6) Diabetes Current Visit: Yes Status: Chronic Qualifiers: Diabetes mellitus type: type 2 Diabetes mellitus intermediate accountant insulin use: without senior living use Diabetes mellitus complication status: with hyperglycemia Qualified Code(s): E11.65 - Type 2 diabetes mellitus with hyperglycemia (7) HTN (hypertension) Current Visit: Yes Status: Chronic Qualifiers: Hypertension type: essential hypertension Qualified Code(s): I10 - Essential (primary) hypertension - Plan Patient will be admitted to ICU at this time pending WBC and pro calcitonin level. Patient currently is alert and oriented x1 ago at baseline also is requiring a sitter due to pulling out all the lines and cardiac monitoring. Will admit the patient to ICU for time being and will downgrade her transfer to a regular floor once a bed is available. Will follow up with WBC and pro calcitonin at this time Discharge Plan: Home Plan to discharge in: 48 Hours - Advance Directives Does patient have a Living Will: No Does patient have a Durable POA for Healthcare: No - Code Status/Comfort Care Code Status Assessed: Yes Critical Care: No
[2018-06-26] MEDS ORDERED: ENOXAPARIN 40 MG/0.4 ML SQ SCH (18:00)
[2018-06-26 19:34] LABS: Blood Morphology Comment NOT SEEN (NOT SEEN); Platelet Estimate DECR; Urine White Blood Cell Casts OK
[2018-06-26] MEDS: INSULIN -REGULAR HUMAN 50 UNIT/0.5 ML ML SQ SCH (21:00)
[2018-06-26] MEDS: predniSONE 20 MG TAB PO SCH ×2 (21:00→21:48)
[2018-06-27] MEDS: ALBUTEROL 2.5 MG/3 ML NEB SOL NEB SCH ×2 (02:05→07:39)
[2018-06-27] MEDS: IPRATROPIUM BROM 0.5MG/2.5ML NEB SCH ×2 (02:05→07:39)
[2018-06-27 06:04] LABS: Absolute Lymphocytes (CBC) 0.6 K/uL (0.7-4.9); Absolute Monocytes 0.4 K/uL (0.1-1.3); Absolute Neutrophil 2.3 K/uL (1.8-8.0); Basophils % 0.4 % (0-1.3); Hematocrit 37.8 % (36.0-45.0); Lymphocytes % 19.3 % (15.3-44.8); Monocytes % 12.7 % (3.3-12.3); RBC Red Blood Cell Count 4.37 M/uL (3.86-4.86)
[2018-06-27 06:29] LABS: Albumin 2.8 g/dL (3.4-5.0); Bilirubin Total 0.4 mg/dL (0.2-1.0); Magnesium 1.8 mg/dL (1.8-2.4); Phosphorus 4.6 mg/dL (2.5-4.9); Potassium 4.1 mmol/L (3.5-5.1); Protein, Total 6.4 g/dL (6.4-8.2); Thyroid Stimulating Hormone 0.714 uIU/mL (0.360-3.740)
[2018-06-27] MEDS: INSULIN -REGULAR HUMAN 50 UNIT/0.5 ML ML SQ SCH ×4 (07:30→20:27)
[2018-06-27] MEDS ORDERED: MAGNESIUM OXIDE 400 MG TAB PO ONE (09:00)
[2018-06-27] MEDS ORDERED: ALBUTEROL 2.5 MG/3 ML NEB SOL NEB PRN (10:19)
[2018-06-27] MEDS ORDERED: IPRATROPIUM BROM 0.5MG/2.5ML NEB PRN (10:19)
--- NOTE | 2018-06-27 10:29 | P.PN ---
Subjective Date of Service: 06/27/18 Primary Care Provider: Hadley Mayfield Chief Complaint: SOB and AMS Subjective: Demented, Other (Patient was agitated last night. She was refusing medication) Physical Examination - Vital Signs Temperature: 97.3 F Blood Pressure: 103/59 Pulse: 94 Respirations: 20 Pulse Ox (%): 93 - Physical Exam General: Demented, Other (patient with poor responses due to severe dementia peer) Neck: Supple Respiratory: Expiratory wheezes (bilateral) Gastrointestinal: Normal bowel sounds, Soft and benign, Non-distended Musculoskeletal: No erythema, No tenderness, No warmth Integumentary: No erythema, No warmth, No cyanosis Neurological: Dementia - Studies Laboratory Data (last 24 hrs) 06/26/18 08:30: WBC 4.1 L, Hgb WATER TESTER, Hct WATER TESTER, Plt Count WATER TESTER Microbiology Data (last 24 hrs): 06/26/18 08:30 Nasopharnyx Influenza Type A Antigen Screen - Final 06/26/18 08:30 Nasopharnyx Influenza Type B Antigen Screen - Final Medications List Reviewed: Yes Assessment & Plan Discharge Plan: Senior Care Plan to discharge in: 48 Hours - Code Status/Comfort Care Code Status Assessed: Yes (Patient is DNR) Physician Review Additional Text: Impression: Altered mental status secondary to toxic encephalopathy related to UTI complicated with severe dementia COPD exacerbation with hypoxia Diabetes HTN Seizure disorder Atrial fibrillation on anticoagulation Plan: Altered mental status secondary to toxic encephalopathy related to UTI complicated with severe dementia: Spoke with daughter concerning patient. She has has been declining in health at group home. She refused medication last night with some agitation. She appears to have a UTI with COPD exacerbation. ECHO appears normal. Will recheck CXR. Will start IV fluids and antibiotic. Will monitor closely. Encourage oral intake. Will see if she will allow the nurses to place IV. If she refuses and her condition continues to decline then will need to consider Hospice. Daughter is in agreement. Will monitor closely. Patient will need sitter. Advance directives addressed in detail with patient's daughter. Patient is DNR. COPD exacerbation with hypoxia: Will provide medication-Prednisone and Brovana/ Albuterol/Atrovent. Will wean off oxygen. Will monitor closely. Pulmonary consulted to further address. Diabetes: Will provide sliding scale. HTN: Will restart her medication. Will need to hold if BP less than 120 sys. Seizure disorder: Will restart medication. Atrial fibrillation on anticoagulation: Will restart medication including Eliquis. Time Spent Managing Pts Care (In Minutes): 55
[2018-06-27] MEDS: predniSONE 20 MG TAB PO SCH ×2 (10:34→19:45)
--- NOTE | 2018-06-27 10:46 | P.CNS ---
Date of Consult: 06/27/18 Primary Care Provider: Hadley Mayfield Chief Complaint: SOB and AMS History of Present Illness: Patient is 87 years of age nonverbal admitted with respiratory distress transferred to the ICU due to combative behavior patient is nonverbal lives in a senior care has some altered mental status history of COPD Patient is anti coagulated Allergies Penicillins Allergy (Mild, Verified 06/26/18 17:21) Rash duloxetine HCl [From Cymbalta] Allergy (Verified 06/26/18 17:21) Unknown morphine Adverse Reaction (Severe, Verified 06/26/18 17:21) combative Atcarpi-Zgs-Yzw Reductase Inhibitor Allergy (Uncoded 06/26/18 17:21) Unknown Home Medications: Acetaminophen [Tylenol] 650 mg PO Q6HR PRN 06/26/18 Amlodipine [Norvasc*] 5 mg PO DAILY 06/26/18 Apixaban [Eliquis] 5 mg PO Q12H 06/26/18 Aspirin Chewable [Aspirin Chewable*] 81 mg PO DAILY 06/26/18 Canagliflozin [Invokana] 300 mg PO DAILY 06/26/18 Carvedilol [Coreg*] 12.5 mg PO BID 06/26/18 Divalproex [Depakote Sprinkle*] 125 mg PO BID 06/26/18 Docusate Sodium 100 mg PO DAILY 06/26/18 Folic Acid 0.8 mg PO DAILY 06/26/18 Guaifenesin/Dextromethorphan [Sandy-Tussin Dm Syrup] 10 ml PO Q6HP PRN 06/26/18 Insulin -Regular Human [Novolin -R*] See Protocol SQ AC 06/26/18 Insulin Glargine,Hum.rec.anlog [Lantus Solostar] 25 units SQ DAILY 06/26/18 L. Acidophilus/Pectin, [place] [Acidophilus Capsule] 1 cap PO DAILY 06/26/18 Lisinopril 40 mg PO DAILY 06/26/18 Memantine HCl [Namenda*] 10 mg PO BID 06/26/18 Nitrofurantoin Macrocrystal [Macrodantin] 100 mg PO DAILY 06/26/18 Omeprazole 20 mg PO DAILY 06/26/18 Polyethyl Gly 3350 [Glycolax*] 17 gm PO DAILY 06/26/18 Risperidone [Risperdal] 0.5 mg PO BEDTIME 06/26/18 Sitagliptin Phosphate [Januvia*] 100 mg PO DAILY 06/26/18 Thyroid Tab [[place]olph Thyroid*] 30 mg PO DAILY 06/26/18 Triamcinolone 0.1% Crm [Kenalog 0.1% Cream*] 1 harvey TOP Q12HP PRN 06/26/18 - Past Medical/Surgical History Diabetic: Yes -: esbl urine 2017 -: alzheimers -: arthritis -: copd -: dementia -: depression -: dm -: gerd -: htn -: hypthyroidism -: pneumonia -: blood clots x4 left 2018 -: bilat knee replacement -: right hip replacement - Family History Father Medical History: Other (see notes) Notes: ra Mother Medical History: Other (see notes) Notes: dementia, tia Brother Medical History: Hypertension, Diabetes - Social History Smoking Status: Unknown if ever smoked Alcohol use: No CD- Drugs: No Caffeine use: Yes Place of Residence: [place] Review of Systems is unable to be obtained Physical Examination Temp Pulse Resp BP Pulse Ox 97.3 F 94 H 20 103/59 L 93 06/27/18 10:41 06/27/18 10:41 06/27/18 10:41 06/27/18 10:41 06/27/18 10:41 General: Alert, Other (Patient is not cooperative) Neck: Supple Respiratory: Clear to auscultation bilaterally Cardiovascular: No edema, Normal S1 S2 Gastrointestinal: Normal bowel sounds, Soft and benign Musculoskeletal: No clubbing, No swelling Laboratory Data (last 24 hrs) 06/26/18 08:30: WBC 4.1 L, Hgb [employer], Hct [employer], Plt Count [employer] - Problems (1) Altered mental status Current Visit: Yes Status: Acute Plan: Patient is 87 years of age admitted with altered mental status possible respiratory distress she does not appear to be any respiratory distress right now he is alert as been combative on the floor refused nutrition and medication chemistries unremarkable chest x-ray shows cardiomegaly last echocardiogram was normal patient has 2+ gram-negative rods in the urine is on levofloxacin pro calcitonin level is negative patient's urinary Estrace and nitrite of both negative probably a contaminant Qualifiers: Altered mental status type: unspecified Qualified Code(s): R41.82 - Altered mental status, unspecified
[2018-06-27] MEDS ORDERED: Levofloxacin500mg IV 500 MG/100 ML BAG IV SCH (11:00)
[2018-06-27] MEDS: NA CHLORIDE 0.9% 1,000 ML IV SCH (11:04)
[2018-06-27] MEDS: APIXABAN 5 MG TABLET PO SCH ×2 (11:05→19:45)
[2018-06-27] MEDS: DOCUSATE NA 100 MG CAP PO SCH (11:05)
[2018-06-27] MEDS ORDERED: VANCOMYCIN 2 GM in NA CHLORIDE 0.9% 500 ML IVPB SCH (16:00)
--- NOTE | 2018-06-27 16:13 | RAD REPORT ---
EXAM DESCRIPTION: [place] Single View06/27/2018 4:02 pm CLINICAL HISTORY: sob COMPARISON: 06/26 FINDINGS: Minimal interstitial pulmonary edema persists. The heart is mildly to moderately enlarged
[2018-06-27 18:00] VITALS: BMI 39.4
[2018-06-27] MEDS: CARVEDILOL 12.5 MG TAB PO SCH (19:44)
[2018-06-27] MEDS: DIVALPROEX NA 125 MG CAP PO SCH (19:45)
[2018-06-27] MEDS: MEMANTINE HCL 10 MG TABLET PO SCH (19:45)
[2018-06-27] MEDS: ARFORMOTEROL TARTRATE 15 MCG/2 ML VIAL.NEB NEB SCH (20:14)
[2018-06-27] MEDS ORDERED: RISPERIDONE 0.25 MG TABLET PO SCH (21:00)
[2018-06-28 05:44] LABS: Absolute Lymphocytes (CBC) 0.7 K/uL (0.7-4.9); Absolute Monocytes 0.4 K/uL (0.1-1.3); Absolute Neutrophil 3.7 K/uL (1.8-8.0); Basophils % 0.3 % (0-1.3); Hematocrit 36.8 % (36.0-45.0); Lymphocytes % 13.8 % (15.3-44.8); MPV 8.8 fL (7.6-11.3); Monocytes % 8.4 % (3.3-12.3); RBC Red Blood Cell Count 4.24 M/uL (3.86-4.86)
[2018-06-28 06:02] LABS: Albumin 2.6 g/dL (3.4-5.0); Bilirubin Total 0.5 mg/dL (0.2-1.0); Magnesium 1.8 mg/dL (1.8-2.4); Phosphorus 2.9 mg/dL (2.5-4.9); Potassium 4.3 mmol/L (3.5-5.1); Protein, Total 6.1 g/dL (6.4-8.2)
[2018-06-28] MEDS: NA CHLORIDE 0.9% 1,000 ML IV SCH (06:02)
[2018-06-28] MEDS ORDERED: MAGNESIUM SULFATE 1 gm IVPB 1 GM/100 ML BAG IV ONE (06:04)
[2018-06-28] MEDS: INSULIN -REGULAR HUMAN 50 UNIT/0.5 ML ML SQ SCH ×2 (07:30→11:52)
[2018-06-28] MEDS: MEMANTINE HCL 10 MG TABLET PO SCH (08:06)
[2018-06-28] MEDS: predniSONE 20 MG TAB PO SCH (08:06)
[2018-06-28] MEDS: DOCUSATE NA 100 MG CAP PO SCH (08:06)
[2018-06-28] MEDS: APIXABAN 5 MG TABLET PO SCH (08:06)
[2018-06-28] MEDS: CARVEDILOL 12.5 MG TAB PO SCH (08:07)
[2018-06-28] MEDS: DIVALPROEX NA 125 MG CAP PO SCH (08:07)
[2018-06-28 08:55] VITALS: O2SAT 94
[2018-06-28 08:59] VITALS: TEMP 97.4
[2018-06-28] MEDS ORDERED: THYROID 30 MG TAB PO SCH (09:00)
[2018-06-28] MEDS ORDERED: HOME MED 1 EA UNK (Lisinopril [Lisinopril] 40 MG) PO SCH (09:00)
[2018-06-28] MEDS ORDERED: FOLIC ACID 1 MG TABLET PO SCH (09:00)
[2018-06-28] MEDS ORDERED: predniSONE 10 MG TAB PO SCH (09:00)
[2018-06-28] MEDS ORDERED: AMLODIPINE 5 MG TAB PO SCH (09:00)
[2018-06-28] MEDS ORDERED: LACTOBACILLUS/ACIDOPHILUS TAB PO SCH (09:00)
[2018-06-28] MEDS ORDERED: CEFUROXIME 250 MG TAB PO SCH (09:02)
--- NOTE | 2018-06-28 09:05 | P.DS ---
Admission Date: 06/26/18 Discharge Date: 06/28/18 Primary Care Provider: [facility]-Dr. Mayfield Disposition: TRANSFER TO SKILLED NURSING Discharge Condition: GOOD Reason for Admission: SOB and AMS Consultations: Pulmonary-Dr. Arnold Nephrology-Dr. Ivan Procedures: CXR: COMPARISON: 06/26 FINDINGS: Minimal interstitial pulmonary edema persists. The heart is mildly to moderately enlarged ECHO: Ejection fraction 53% LEFT VENTRICULAR WALL MOTION: NORMAL DOPPLER/COLOR FLOW: NORMAL COMMENTS: TECHNICALLY DIFFICULT STUDY. AORTIC SCLEROSIS. NORMAL LEFT VENTRICULAR SIZE AND FUNCTION. NO EFFUSION. Medical Problem List: Altered mental status secondary to toxic encephalopathy related to UTI, urine culture positive for Proteus mirabilis, complicated with advanced dementia with behavioral issues COPD exacerbation with hypoxia Diabetes mellitus type 2, insulin-dependent HTN Seizure disorder Hypothyroidism GERD Atrial fibrillation on anticoagulation Brief History of Present Illness: 87-year-old female presented to the emergency room with altered mental status changes and shortness of breath. Patient was found to be hypoxic. Patient with history of dementia and multiple medical issues. Patient was admitted for further evaluation and treatment. Hospital Course: Patient presented with altered mental status and shortness of breath. Patient found to have toxic encephalopathy related to UTI. Urine culture positive for Proteus mirabilis. Patient also with underlying advanced dementia with behavioral issues. Daughter reports patient has been declining in health due to the dementia. Patient initially refused medication and oral intake. She was given IV fluids and antibiotic therapy with improvement. At discharge she is alert and cooperative. She appears to be at her baseline level. At discharge she will continue with Cefdinir 300 mg twice daily for 7 days. UTI prevention is encouraged. Macrodantin has been discontinued. Patient has a advanced dementia with behavioral issues. Her dementia has been getting worse over time as per family. Patient has required medication for agitation. If her dementia continues to worsen over time, family would consider hospice. Advanced directives address in detail. Patient is do not resuscitate. This can be further addressed at the [facility] with family. At discharge she will continue with Namenda 10 mg 1 pill twice daily, Risperdal 0.5 mg at bedtime, and folic acid 0.8 mg daily. Patient also found to have acute on chronic respiratory failure related to COPD exacerbation with hypoxia. Patient was started on steroids and COPD treatment. This improved. Pulmonology was consulted. No further intervention was required. At discharge she did not require any oxygen. At discharge she will continue with prednisone 10 mg 1 pill twice daily for 5 days then 1 pill once daily for 5 days. At discharge she will continue with Brovana 1 unit dose twice daily and albuterol 1 unit dose 3 times a day as needed for shortness of breath. Patient may follow up with pulmonology as an outpatient. Patient with diabetes mellitus. Patient takes multiple medications. Medications adjusted during her stay. At discharge Januvia and Invokana have been discontinued due to her UTI and poly pharmacy. Side effects of Invokana can increase risk of UTI. Patient also takes insulin at the [facility]. At discharge she will continue with Lantus 25 units subcu at bedtime and insulin sliding scale. As mentioned, Invokana and Januvia have been discontinued. Recommendation is to maintain blood sugars less 140 fasting and less than 2 after meals. Further adjustment can be done by [facility] physician. Patient with hypertension. This has remained stable. Medication adjusted during her stay. Lisinopril discontinued. She will continue with her medications Norvasc 5 mg daily, carvedilol 12.5 mg 1 pill twice daily and aspirin 81 mg daily. Recommendation is to maintain blood pressures less 150/ 80. Further adjustment can be done by her [facility] physician. Patient with seizure disorder. This has remained stable. She will continue with her medication Depakote 125 mg 1 pill twice daily.. Patient with history of atrial fibrillation on chronic anti coagulation therapy. She will continue with her medication including Eliquis 2.5 mg 1 pill twice a day and carvedilol 12.5 mg 1 pill twice daily. Patient has hypothyroidism. She will continue with her medication-[place] Thyroid 30 mg daily. Patient has GERD. She will continue with Prilosec 20 mg daily. Vital Signs/Physical Exam: Temp Pulse Resp BP Pulse Ox 97.3 F 85 20 133/72 97 06/28/18 00:00 06/28/18 08:07 06/28/18 00:00 06/28/18 08:07 06/28/18 00:00 General: Alert, Demented (Severe) HEENT: Atraumatic Neck: Supple Respiratory: Clear to auscultation bilaterally, Normal air movement Cardiovascular: Normal pulses, Regular rate/rhythm Gastrointestinal: Normal bowel sounds, Soft and benign, Non-distended, No tenderness, No masses, No rebound, No guarding Musculoskeletal: No erythema, No tenderness, No warmth Integumentary: No tenderness/swelling, No erythema, No warmth, No cyanosis Neurological: Normal speech, Normal strength at 5/5 x4 extr, Normal tone, Dementia Laboratory Data at Discharge: WBC 4.8 K/uL (4.3-10.9) D 06/28/18 05:03 Hgb 12.0 g/dL (12.0-15.0) 06/28/18 05:03 Hct 36.8 % (36.0-45.0) 06/28/18 05:03 Plt Count 160 K/uL (152-406) 06/28/18 05:03 Sodium 139 mmol/L (136-145) 06/28/18 05:03 Potassium 4.3 mmol/L (3.5-5.1) 06/28/18 05:03 BUN 37 mg/dL (7-18) H 06/28/18 05:03 Creatinine 0.72 mg/dL (0.55-1.3) 06/28/18 05:03 Glucose 193 mg/dL (74-106) H 06/28/18 05:03 Phosphorus 2.9 mg/dL (2.5-4.9) 06/28/18 05:03 Magnesium 1.8 mg/dL (1.8-2.4) 06/28/18 05:03 Total Bilirubin 0.5 mg/dL (0.2-1.0) 06/28/18 05:03 AST 8 U/L (15-37) L 06/28/18 05:03 ALT 14 U/L (12-78) 06/28/18 05:03 Alkaline Phosphatase 85 U/L (45-117) 06/28/18 05:03 Home Medications: Acetaminophen [Tylenol] 650 mg PO Q6HR PRN 06/26/18 Amlodipine [Norvasc*] 5 mg PO DAILY 06/26/18 Apixaban [Eliquis] 5 mg PO Q12H 06/26/18 Aspirin Chewable [Aspirin Chewable*] 81 mg PO DAILY 06/26/18 Carvedilol [Coreg*] 12.5 mg PO BID 06/26/18 Divalproex [Depakote Sprinkle*] 125 mg PO BID 06/26/18 Docusate Sodium 100 mg PO DAILY 06/26/18 Folic Acid 0.8 mg PO DAILY 06/26/18 Insulin -Regular Human [Novolin -R*] See Protocol SQ AC 06/26/18 Insulin Glargine,Hum.rec.anlog [Lantus Solostar] 25 units SQ DAILY 06/26/18 L. Acidophilus/Pectin, [place] [Acidophilus Capsule] 1 cap PO DAILY 06/26/18 Memantine HCl [Namenda*] 10 mg PO BID 06/26/18 Omeprazole 20 mg PO DAILY 06/26/18 Risperidone [Risperdal] 0.5 mg PO BEDTIME 06/26/18 Thyroid Tab [[place] Thyroid*] 30 mg PO DAILY 06/26/18 Albuterol Neb [Proventil 0.083% Neb Soln] 3 ml NEB TID PRN #90 amp 06/28/18 Arformoterol Tartrate [Brovana] 2 ml NEB BIDRESP #60 vial.neb 06/28/18 Cefdinir [Cefdinir*] 300 mg PO BID #14 cap 06/28/18 predniSONE [Deltasone*] 10 mg PO SEECOM #15 tab 06/28/18 New Medications: Albuterol Neb [Proventil 0.083% Neb Soln] 3 ml NEB TID PRN #90 amp PRN Reason: Shortness Of Breath Arformoterol Tartrate [Brovana] 2 ml NEB BIDRESP #60 vial.neb Cefdinir [Cefdinir*] 300 mg PO BID #14 cap predniSONE [Deltasone*] 10 mg PO SEECOM #15 tab Patient Discharge Instructions: 1. Patient may return to [facility]. 2. Patient presented with altered mental status and shortness of breath. Patient found to have toxic encephalopathy related to UTI. Urine culture positive for Proteus mirabilis. Patient also with underlying advanced dementia with behavioral issues. Daughter reports patient has been declining in health due to the dementia. Patient initially refused medication and oral intake. She was given IV fluids and antibiotic therapy with improvement. At discharge she is alert and cooperative. She appears to be at her baseline level. At discharge she will continue with Cefdinir 300 mg twice daily for 7 days. UTI prevention is encouraged. Macrodantin has been discontinued. 3. Patient has a advanced dementia with behavioral issues. Her dementia has been getting worse over time as per family. Patient has required medication for agitation. If her dementia continues to worsen over time, family would consider hospice. Advanced directives address in detail. Patient is do not resuscitate. This can be further addressed at the [facility] with family. At discharge she will continue with Namenda 10 mg 1 pill twice daily, Risperdal 0.5 mg at bedtime , and folic acid 0.8 mg daily. 4. Patient also found to have acute on chronic respiratory failure related to COPD exacerbation with hypoxia. Patient was started on steroids and COPD treatment. This improved. Pulmonology was consulted. No further intervention was required. At discharge she did not require any oxygen. At discharge she will continue with prednisone 10 mg 1 pill twice daily for 5 days then 1 pill once daily for 5 days. At discharge she will continue with Brovana 1 unit dose twice daily and albuterol 1 unit dose 3 times a day as needed for shortness of breath. Patient may follow up with pulmonology as an outpatient. 6. Patient with diabetes mellitus. Patient takes multiple medications. Medications adjusted during her stay. At discharge Januvia and Invokana have been discontinued due to her UTI and poly pharmacy. Side effects of Invokana can increase risk of UTI. Patient also takes insulin at the [facility]. At discharge she will continue with Lantus 25 units subcu at bedtime and insulin sliding scale. As mentioned, Invokana and Januvia have been discontinued. Recommendation is to maintain blood sugars less 140 fasting and less than 2 after meals. Further adjustment can be done by [facility]pc physician. 7. Patient with hypertension. This has remained stable. Medication adjusted during her stay. Lisinopril discontinued. She will continue with her medications Norvasc 5 mg daily, carvedilol 12.5 mg 1 pill twice daily and aspirin 81 mg daily. Recommendation is to maintain blood pressures less 150/80. Further adjustment can be done by her [facility] physician. 8. Patient with seizure disorder. This has remained stable. She will continue with her medication Depakote 125 mg 1 pill twice daily.. 9. Patient with history of atrial fibrillation on chronic anti coagulation therapy. She will continue with her medication including Eliquis 2.5 mg 1 pill twice a day and carvedilol 12.5 mg 1 pill twice daily. 10. Patient has hypothyroidism. She will continue with her medication-[place] Thyroid 30 mg daily. 11. Patient has GERD. She will continue with Prilosec 20 mg daily. Diet: ADA Activity: Fall precautions Time spent managing pt's care (in minutes): 55
[2018-06-28] MEDS: ARFORMOTEROL TARTRATE 15 MCG/2 ML VIAL.NEB NEB SCH (09:10)
[2018-06-28] MEDS ORDERED: CEFDINIR 300 MG CAP PO SCH (10:00)
--- NOTE | 2018-06-28 11:04 | RAD REPORT ---
EXAM DESCRIPTION: RAD - Chest Single View - 06/28/2018 10:18 am CLINICAL HISTORY: Fever, shortness of breath COMPARISON: June 27 TECHNIQUE: AP portable chest image was obtained 1013 hours . FINDINGS: Lung volumes are relatively low. Large body habitus and portable technique limit the exami nation. Retrocardiac base is limited in assessment but unchanged from comparison. No new right lung f ield finding. Patient has baseline interstitial lung disease. Cardiomegaly is present similar to comp arison. Vascular engorgement is not clearly different. Mild failure or volume overload can be masked. Trachea is midline. No pneumothorax or large pleural effusion. Advanced degenerative change present at each shoulder joint. No acute aortic findings suspected. IMPRESSION: Cardiomegaly, prominent vasculature and prominent lung markings similar to comparison. Patient has chronic lung disease. Failure and volume overload are still evident.
[2018-06-28 13:06] VITALS: BP 110/61
== END 2018-06-28 13:15 | DRG 689 ==
LOC: ER 08:03 → ERHOLD 11:41 → 3RD-ICU 15:56
PROVIDERS: ADMIT Family Medicine; ATTEND Family Medicine
DX: N39.0 Urinary tract infection, site not specified (principal); I50.33 Acute on chronic diastolic (congestive) heart failure; G92 Toxic encephalopathy; J44.1 Chronic obstructive pulmonary disease with (acute) exacerbation; I10 Essential (primary) hypertension; F03.90 Unspecified dementia, unspecified severity, without behavioral disturbance, psychotic disturbance, mood disturbance, and anxiety; E11.65 Type 2 diabetes mellitus with hyperglycemia; R09.02 Hypoxemia; G40.909 Epilepsy, unspecified, not intractable, without status epilepticus; I48.91 Unspecified atrial fibrillation; B96.4 Proteus (mirabilis) (morganii) as the cause of diseases classified elsewhere
CPT/HCPCS: 36415; 71045; 80048; 80053; 81003; 81015; 82962; 83735; 83880; 84100; 84145; 84443; 84484; 85025; 87040; 87077; 87086; 87088; 87186; 87205; 87804; 93005; 93306; 99285; J1650; J1940; J2930; J3475; J7030; J7512; J7605

== ENCOUNTER 2018-07-23 09:26 | Emergency (ER) | payer OTHER ==
[2018-07-23 09:59] LABS: Absolute Lymphocytes (CBC) 1.7 K/uL (0.7-4.9); Absolute Monocytes 0.6 K/uL (0.1-1.3); Absolute Neutrophil 4.6 K/uL (1.8-8.0); Basophils % 0.7 % (0-1.3); Hematocrit 40.1 % (36.0-45.0); Lymphocytes % 23.7 % (15.3-44.8); MPV 10.1 fL (7.6-11.3); Monocytes % 8.4 % (3.3-12.3); RBC Red Blood Cell Count 4.56 M/uL (3.86-4.86)
[2018-07-23] MEDS ORDERED: CEFTRIAXONE/SWI 1gm 1 GM/10 ML SYR ONE (10:01)
[2018-07-23] MEDS ORDERED: NA CHLORIDE 0.9% 1,000 ML ONE (10:03)
--- NOTE | 2018-07-23 10:08 | RAD REPORT ---
EXAM DESCRIPTION: CT - Head Brain Wo Cont - 07/23/2018 10:01 am CLINICAL HISTORY: Alteration of awareness/confusion COMPARISON: June 2017 TECHNIQUE: Computed axial tomography of the head was obtained. IV contrast was not requested. All CT scans are performed using dose optimization technique as appropriate and may include automated exposure control or mA/KV adjustment according to patient size. FINDINGS: An intracranial bleed is not seen . The ventricles are normal in caliber. No extra-axial fluid collection is noted. Moderate low-density areas within periventricular, deep and subcortical white matter likely represent ischemic changes secondary to small vessel disease. Fluid within the sinuses/ mastoids is not seen. IMPRESSION: No acute intracranial abnormality is seen. If patient's symptoms persist MRI of the bra in would be recommended.
[2018-07-23 10:09] LABS: Protime INR 1.24
[2018-07-23 10:17] LABS: ALT/SGPT 16 U/L (12-78); AST/SGOT 10 U/L (15-37); Albumin 2.6 g/dL (3.4-5.0); Alkaline Phosphatase 68 U/L (45-117); BUN Blood Urea Nitrogen 21 mg/dL (7-18); Bicarbonate 29 mmol/L (21-32); Bilirubin Direct 0.1 mg/dL (0-0.2); Bilirubin Total 0.6 mg/dL (0.2-1.0); CKMB Creatine Kinase MB < 1.0 ng/mL (0.3-3.6); Creatine Phosphokinase 21 U/L (26-192); Glucose Level 162 mg/dL (74-106); Lipase 112 U/L (73-393); Potassium 3.5 mmol/L (3.5-5.1); Protein, Total 5.5 g/dL (6.4-8.2); Sodium Level 146 mmol/L (136-145); Troponin (Emerg Dept Use Only) 0.02 ng/mL (0.0-0.045)
--- NOTE | 2018-07-23 10:24 | RAD REPORT ---
EXAM DESCRIPTION: [place] Single View07/23/2018 10:10 am CLINICAL HISTORY: sob COMPARISON: June 2018 FINDINGS: Pulmonary vascular congestion is present. Lungs probably are clear of acute infiltrate. The heart is mildly to moderately enlarged
[2018-07-23 11:08] LABS: Urine Bacteria <20 /HPF (<20); Urine Culture Reflex Order REFLEXED; Urine Mucus HEAVY /HPF (NONE SEEN); Urine RBC <5 /HPF (NONE SEEN)
[2018-07-23 11:20] LABS: Urine Blood NEGATIVE (NEG); Urine Glucose NEGATIVE (NEG); Urine Protein 2+ (NEG); Urine pH 5.5 (5.0-7.0)
--- NOTE | 2018-07-23 12:00 | RAD REPORT ---
EXAM DESCRIPTION: CT - Abdomen Pelvis W Contrast - 07/23/2018 11:47 am CLINICAL HISTORY: Abdominal pain, altered mental status COMPARISON: None. TECHNIQUE: Biphasic, helical CT imaging of the abdomen and pelvis was performed following 100 ml non -ionic IV contrast. No oral contrast administered. All CT scans are performed using dose optimization technique as appropriate and may include automated exposure control or mA/KV adjustment according to patient size. FINDINGS: Fibrotic stranding is present in each posterior lung base. A small 7 mm nodule is present in the anterior right lung base. This can be followed with CT imaging in 6 months if clinically warra nted. Minimal pericardial thickening or effusion along the posterior margin The liver, spleen, and pancreas show no suspicious findings. Gallbladder is absent. No biliary tree d ilatation. Symmetric renal function is seen with no hydronephrosis or suspicious renal mass. No pyelonephritis o r acute parenchymal process. A 14 millimeter cyst is present posterior mid left kidney. Small parapel nohemi cysts are present. Adrenal nodularity is present not felt to be of any long-term significance. Ur inary bladder is fully contracted around a Nino catheter. Uterus and ovaries show no suspicious find ings. No dilated bowel loops or bowel wall thickening. No appendicitis findings. Patient has prominent dive rticulosis but no diverticulitis. Rectum is distended by stool. Proximal rectum weber are mildly prom inent. An acute or active colon process is unlikely. No free air, free fluid or inflammatory strandin g. No mass or bulky lymphadenopathy. Patient has a small fat only umbilical hernia approximately 18 mm in maximum dimension. This is not seen as significant. Prominent disc and bony degenerative changes are present. No acute fracture or pathologic bone proces s. IMPRESSION: No bowel obstruction, free air or surgically emergent finding. No acute abdominal or pelvic finding seen. Nonacute findings detailed in the body of the report.
--- NOTE | 2018-07-23 12:26 | ER ---
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 Transition of care: patient was received from another setting of care (long-term care facility), [facility]. Onset of symptoms was July 23, 2018. Risk Assessment: Do you want to hurt yourself or someone else? Patient reports no desire to harm self or others. Initial Sepsis Screen: Does the patient meet any 2 criteria? Altered Mental Status. Does the patient have a suspected source of infection? No. Patient's initial sepsis screen is negative. Care prior to arrival: IV initiated. 20 GA, in the right wrist, Glucose check: 151. 09:36 Method Of Arrival: EMS: [facility] ph 09:36 Acuity: KELBY 2 ph Historical: - Allergies: 09:42 Morphine; ph 09:42 PENICILLINS; ph 09:42 sertraline; ph - Home Meds: 16:47 acetaminophen 650 mg Oral TbER every 6 hours as needed [Active]; Acidophilus Oral cap sg daily [Active]; amlodipine 5 mg tab [Active]; [place] Thyroid 30 mg Oral tab daily [Active]; aspirin 81 mg Oral TbEC 1 tab once daily [Active]; canagliflozin 300 mg Oral once daily [Active]; carvedilol 12.5 mg Oral tab 2 times per day [Active]; Depakote 125 mg Oral TbEC 1 tab 2 times per day [Active]; docusate sodium 100 mg Oral cap once daily [Active]; folic acid 800 mcg Oral tab once daily [Active]; GlycoLax 17 gram/dose Oral powd once daily [Active]; Januvia 100 mg Oral tab 1 tab once daily [Active]; Lantus 100 unit/mL Sub-Q soln 25 units once a day [Active]; lisinopril 40 mg Oral tab 1 tab once daily [Active]; Namenda 10 mg Oral tab 1 tab 2 times per day [Active]; nitrofurantoin macrocrystal 100 mg Oral cap once daily [Active]; Novolog Sub-Q per sliding scale [Active]; omeprazole 20 mg Oral cpDR 1 cap once daily [Active]; Risperdal 0.5 mg Oral tab at bedtime [Active]; - PMHx: 16:47 Alzheimers; Anxiety; Arthritis; COPD; Dementia; Depression; Diabetes - NIDDM; GERD; sg Hypertension; Hypothyroidism; Pneumonia; Urinary incontinence; - PSHx: 16:47 Knee surgery; hip surgery; sg - Immunization history:: Adult Immunizations unknown. - Social history:: Smoking status: unknown. - Ebola Screening: : No symptoms or risks identified at this time. Screenin:03 Abuse screen: Denies threats or abuse. Denies injuries from another. Nutritional ph screening: No deficits noted. Tuberculosis screening: No symptoms or risk factors identified. Fall Risk No fall in past 12 months (0 pts). Secondary diagnosis (15 points) impaired mobility, IV access (20 points). Ambulatory Aid- Crutches/Cane/Walker (15 pts). Gait- Weak (10 pts.). Mental Status- Overestimates/Forgets Limitations (15 pts.). Total Caldera Fall Scale indicates High Risk Score (45 or more points). Fall prevention measures have been instituted. Side Rails Up X 2 Placed Close to Nursing Station Frequent Obs/Assessments Occuring As available patient and family educated on Fall Prevention Program and Strategies. Assessment: 09:50 General: Appears in no apparent distress. obese, well groomed, Behavior is drowsy, ph fussy, quiet. Pain: Complains of pain in abdomen. Neuro: Level of Consciousness is awake, confused, lethargic, Oriented to person, Moves all extremities. Facial symmetry appears normal, Pupils are PERRLA. Cardiovascular: Capillary refill < 3 seconds in bilateral fingers Patient's skin is warm and dry. Rhythm is atrial fibrillation. 10:06 Respiratory: Airway is patent Respiratory effort is even, unlabored, Respiratory ph pattern is regular, symmetrical. GI: Abdomen is round obese, Bowel sounds present X 4 quads. Derm: Skin is fragile, is thin, Skin is pink, warm \T\ dry. Musculoskeletal: Circulation, motion, and sensation intact. Swelling absent. 10:51 Reassessment: Patient appears in no apparent distress at this time. Patient and/or sg family updated on plan of care and expected duration. Pain level reassessed. pt refused confused at this time, srx2, sunday hugger in placed, pt temp increasing now to 95.5. 13:15 Reassessment: Patient appears in no apparent distress at this time. report called to Leslie Wild Nurse at [facility] for pt, Leslie reports arranging transport back to [facility] at this time, awaiting transport. 14:20 Reassessment: Patient appears in no apparent distress at this time. Neuro: Level of sg Consciousness is awake, confused, Facial symmetry appears normal. Respiratory: Airway is patent Respiratory effort is even, unlabored, Respiratory pattern is regular, symmetrical. Derm: Skin is pink, warm \T\ dry. 15:10 Reassessment: Patient appears in no apparent distress at this time. Patient and/or sg family updated on plan of care and expected duration. Pain level reassessed. 16:42 Reassessment: Patient appears in no apparent distress at this time. Patient and/or sg family updated on plan of care and expected duration. Pain level reassessed. awaiting transport to [facility] at this time, will continue to monitor. Vital Signs: 09:40 BP 124 / 70; Pulse 65; Resp 24; Temp 98.1; Pulse Ox 95% on R/A; Weight 117.93 kg; ph 10:48 Temp 94.5(C); sg 12:15 BP 111 / 62; Pulse 70; Resp 16; Pulse Ox 98% on R/A; sg 12:30 Temp 97.0; sg 16:30 BP 110 / 62; Pulse 66; Resp 17; Temp 97.2; Pulse Ox 96% on R/A; sg 10:[address] [facility] for warming measures ED Course: 09:28 Patient arrived in ED. em1 09:35 Kevon Arnold MD is Attending Physician. kdr 09:36 Christi Loving RN is Primary Nurse. ph 09:40 Triage completed. ph 09:42 Arm band placed on. ph 09:43 Patient has correct armband on for positive identification. Placed in gown. Bed in low ph position. Call light in reach. Side rails up X2. traffic monitor specialist on. Pulse ox on. NIBP on. Warm blanket given. 09:43 Maintain EMS IV. Dressing intact. Good blood return noted. Site clean \T\ dry. Gauge \T\ ph site: 20 R wrist. 09:59 Inserted saline lock: 20 gauge in left antecubital area, using aseptic technique. Blood ph collected. 10:10 CT completed. Patient tolerated procedure well. X-ray completed. Patient tolerated sw procedure well. Patient moved to CT via stretcher. Patient moved to radiology via stretcher. Patient moved back from radiology. 10:18 CT Head Brain wo Cont In Process Unspecified. EDMS 10:23 Chest Single View XRAY In Process Unspecified. EDMS 10:50 Gomez cath inserted, using sterile technique, 16 Fr., by mn, balloon inflated, to sg gravity drainage, urine specimen collected. returned Criticore gomez cath inserted . Patient tolerated well. 10:50 Urine collected: Gomez catheter specimen, jennifer colored. dh3 11:13 EKG done, by cardiac technologist. reviewed by Kevon Arnold MD. at1 11:51 CT Abd/Pelvis - W/Contrast In Process Unspecified. EDMS 12:00 Warm blanket given. Head of bed elevated. Turned to left side. Cleaned of incontinence. sg Linen changed. 14:00 Warm blanket given. Turned to back. sg 15:10 Cleaned of incontinence. Linen changed. sg 17:30 No provider procedures requiring assistance completed. IV discontinued, intact, sg bleeding controlled, No redness/swelling at site. Pressure dressing applied. Administered Medications: 10:50 Drug: NS 0.9% (30 ml/kg) 30 ml/kg Route: IV; Rate: bolus; Site: right wrist; sg 10:50 Drug: Rocephin - (cefTRIAXone) 1 grams Route: IVPB; Infused Over: 30 mins; Site: right sg wrist; Point of Care Testing: Blood Glucose: 09:35 Blood Glucose: 173 mg/dL; dh3 Ranges: Outcome: 12:23 Discharge ordered by . kdr 17:30 Discharged to skilled nursing. Report called to Leslie ADAME sg 17:30 Condition: good 17:30 Discharge instructions given to patient, EMS, Instructed on discharge instructions, safety practices. 17:31 Patient left the ED. sg Addendum: 07/27/2018 16:38 Addendum: Culture Results: Positive urine culture. Patient was not prescribed s s antibiotics at discharge. Report given to PARAG for further evaluation and then to sales and merchandising representative for follow up with patient. Phone call Attempt #1 faxed culture report to [facility] ATTN Heidi. Signatures: Dispatcher [employer] EDMS Zay Gates RN RN Kevon Su MD MD kdr Martinez, Eric em1 Rachael Fraser RN RN Ailyn Morel, trim setter helper EKG Tat1 Christi Loving RN RN [place], [facility] Tiffanie Cullen [facility] Corrections: (The following items were deleted from the chart) 07/23 10:07 09:50 Cardiovascular: Capillary refill ph ph
--- NOTE | 2018-07-23 12:27 | EDPHYS ---
Physician Documentation [facility] Name: Beata Mayer Age: 87 yrs Sex: Female : 1930 Arrival Date: 07/23/2018 Time: 09:28 Bed 2 Private MD: ED Physician Kevon Arnold HPI: 07/23 11:06 This 87 yrs old Female presents to ER via EMS with complaints of Altered kdr Mental Status. 11:06 The patient presents with confusion, decreased mental status, decreased responsiveness. kdr Onset: The symptoms/episode began/occurred at an unknown time. last known well was about 07:00 AM today. Possible causes: sepsis, the patient lives in a fdc. Associated signs and symptoms: Pertinent positives: confusion, weakness, AMS. Patient's baseline: Neuro: alert but confused, Motor: no deficits, Ambulation: unable to walk, Speech: the patient can speak but doesn't make sense, slow. It is unknown whether or not the patient has had similar symptoms in the past. It is unknown whether or not the patient has recently seen a physician. Historical: - Allergies: 09:42 Morphine; ph 09:42 PENICILLINS; ph 09:42 sertraline; ph - Home Meds: 16:47 acetaminophen 650 mg Oral TbER every 6 hours as needed [Active]; Acidophilus Oral cap sg daily [Active]; amlodipine 5 mg tab [Active]; [place] Thyroid 30 mg Oral tab daily [Active]; aspirin 81 mg Oral TbEC 1 tab once daily [Active]; canagliflozin 300 mg Oral once daily [Active]; carvedilol 12.5 mg Oral tab 2 times per day [Active]; Depakote 125 mg Oral TbEC 1 tab 2 times per day [Active]; docusate sodium 100 mg Oral cap once daily [Active]; folic acid 800 mcg Oral tab once daily [Active]; GlycoLax 17 gram/dose Oral powd once daily [Active]; Januvia 100 mg Oral tab 1 tab once daily [Active]; Lantus 100 unit/mL Sub-Q soln 25 units once a day [Active]; lisinopril 40 mg Oral tab 1 tab once daily [Active]; Namenda 10 mg Oral tab 1 tab 2 times per day [Active]; nitrofurantoin macrocrystal 100 mg Oral cap once daily [Active]; Novolog Sub-Q per sliding scale [Active]; omeprazole 20 mg Oral cpDR 1 cap once daily [Active]; Risperdal 0.5 mg Oral tab at bedtime [Active]; - PMHx: 16:47 Alzheimers; Anxiety; Arthritis; COPD; Dementia; Depression; Diabetes - NIDDM; GERD; sg Hypertension; Hypothyroidism; Pneumonia; Urinary incontinence; - PSHx: 16:47 Knee surgery; hip surgery; sg - Immunization history:: Adult Immunizations unknown. - Social history:: Smoking status: unknown. - Ebola Screening: : No symptoms or risks identified at this time. ROS: 11:06 Constitutional: Unable to assess secondary to AMS Eyes: Negative for injury, pain, kdr redness, and discharge. 11:06 Unable to obtain ROS due to altered mental status. Exam: 11:06 Constitutional: This is a well developed, well nourished patient who is awake, alert, kdr and in no acute distress. Head/Face: Normocephalic, atraumatic. Eyes: Pupils equal round and reactive to light, extra-ocular motions intact. Lids and lashes normal. Conjunctiva and sclera are non-icteric and not injected. Cornea within normal limits. Periorbital areas with no swelling, redness, or edema. Neck: Trachea midline, no thyromegaly or masses palpated, and no cervical lymphadenopathy. Supple, full range of motion without nuchal rigidity, or vertebral point tenderness. No Meningismus. Chest/axilla: Normal chest wall appearance and motion. Nontender with no deformity. No lesions are appreciated. Cardiovascular: Regular rate and rhythm with a normal S1 and S2. No gallops, murmurs, or rubs. Normal PMI, no JVD. No pulse deficits. Respiratory: Lungs have equal breath sounds bilaterally, clear to auscultation and percussion. No rales, rhonchi or wheezes noted. No increased work of breathing, no retractions or nasal flaring. Abdomen/GI: Soft, non-tender, with normal bowel sounds. No distension or tympany. No guarding or rebound. No evidence of tenderness throughout. Back: No spinal tenderness. No costovertebral tenderness. Full range of motion. Skin: Warm, dry with normal turgor. Normal color with no rashes, no lesions, and no evidence of cellulitis. MS/ Extremity: Pulses equal, no cyanosis. Neurovascular intact. Full, normal range of motion. 11:06 Neuro: Orientation: unable to test, AMS, Cerebellar function: unable to test, AMS, Motor: moves all fours, strength is 4/5 in the , Gait: not tested. Vital Signs: 09:40 BP 124 / 70; Pulse 65; Resp 24; Temp 98.1; Pulse Ox 95% on R/A; Weight 117.93 kg; ph 10:48 Temp 94.5(C); sg 12:15 BP 111 / 62; Pulse 70; Resp 16; Pulse Ox 98% on R/A; sg 12:30 Temp 97.0; sg 16:30 BP 110 / 62; Pulse 66; Resp 17; Temp 97.2; Pulse Ox 96% on R/A; sg 10:48 pt placed to Ricky Hugger for warming measures sg MDM: 11:06 Data reviewed: vital signs, nurses notes, lab test result(s), radiologic studies. kdr Counseling: I had a detailed discussion with the patient and/or guardian regarding: the historical points, exam findings, and any diagnostic results supporting the discharge/admit diagnosis, lab results, radiology results, the need for further work-up and treatment in the hospital. ED course: The patient was noted to by hypothermic but responded well to Bear hugger. 12:23 Patient medically screened. kdr 07/23 09:37 Order name: Basic Metabolic Panel; Complete Time: 10:35 kdr 07/23 09:37 Order name: Blood Culture Adult (2) kdr 07/23 09:37 Order name: CBC with Diff kdr 07/23 09:37 Order name: Ckmb; Complete Time: 10:35 kdr 07/23 09:37 Order name: CPK; Complete Time: 10:35 kdr 07/23 09:37 Order name: Lactate; Complete Time: 10:35 kdr 07/23 09:37 Order name: LFT's; Complete Time: 10:35 kdr 07/23 09:37 Order name: Lipase; Complete Time: 10:35 kdr 07/23 09:37 Order name: Procalcitonin; Complete Time: 10:35 kdr 07/23 09:37 Order name: Protime (+inr) kdr 07/23 09:37 Order name: Ptt, Activated kdr 07/23 09:37 Order name: Troponin (emerg Dept Use Only); Complete Time: 10:35 kdr 07/23 09:37 Order name: Urine Microscopic Only; Complete Time: 11:26 kdr 07/23 09:53 Order name: Glucose, Ancillary Testing; Complete Time: 10:35 EDMS 07/23 09:37 Order name: Chest Single View XRAY; Complete Time: 10:35 kdr 07/23 09:37 Order name: Accucheck; Complete Time: 09:52 kdr 07/23 09:37 Order name: Cardiac monitoring; Complete Time: 09:52 kdr 07/23 09:37 Order name: IV Saline Lock - Large Bore; Complete Time: 09:52 kdr 07/23 09:37 Order name: Labs collected and sent; Complete Time: :52 kdr 07/23 09:37 Order name: O2 Per Protocol; Complete Time: 09:52 kdr 07/23 09:37 Order name: O2 Sat Monitoring; Complete Time: 09:52 kdr 07/23 09:37 Order name: Urine Dipstick-Ancillary (obtain specimen); Complete Time: 10:54 kdr 07/23 09:37 Order name: CT Head Brain wo Cont; Complete Time: 10:35 kdr 07/23 10:56 Order name: Urine Dipstick--Ancillary (enter results); Complete Time: 11:26 em1 07/23 11:10 Order name: Urine Culture EDAZ 07/23 11:26 Order name: CT Abd/Pelvis - W/Contrast; Complete Time: 12:22 kdr 07/23 12:56 Order name: EKG Electrocardiogram EDMS Administered Medications: 10:50 Drug: NS 0.9% (30 ml/kg) 30 ml/kg Route: IV; Rate: bolus; Site: right wrist; sg 10:50 Drug: Rocephin - (cefTRIAXone) 1 grams Route: IVPB; Infused Over: 30 mins; Site: right sg wrist; Point of Care Testing: Blood Glucose: 09:35 Blood Glucose: 173 mg/dL; dh3 Ranges: Critical Glucose Levels:Adult <50 mg/dl or >400 mg/dl <40 mg/dl or >180 mg/dl Disposition: 07/23/18 12:23 Discharged to Home. Impression: Altered mental status, unspecified, Confusional arousals. - Condition is Stable. - Discharge Instructions: Confusion, Hypothermia. - Medication Reconciliation Form, Thank You Letter form. - Follow up: Private Physician; When: 1 - 2 days; Reason: If symptoms return, Further diagnostic work-up, Recheck today's complaints, Continuance of care, Re-evaluation by your physician. - Problem is an acute exacerbation. - Symptoms have improved. Signatures: Dispatcher [employer] EDZay Fry RN RN sg Kevon Arnodl MD MD [facility] Christi Loving RN RN ph Corrections: (The following items were deleted from the chart) 17:31 12:23 07/23/2018 12:23 Discharged to Home. Impression: Altered mental status, sg unspecified; Confusional arousals. Condition is Stable. Forms are Medication Reconciliation Form, Thank You Letter, Antibiotic Education, Prescription Opioid Use. Follow up: Private Physician; When: 1 - 2 days; Reason: If symptoms return, Further diagnostic work-up, Recheck today's complaints, Continuance of care, Re-evaluation by your physician. Problem is an acute exacerbation. Symptoms have improved. kdr
--- NOTE | 2018-07-23 16:59 | EKG ---
Test Date: 2018-07-23 Test Time: 11:08:32 Tail Ripper: FIORELLA MEASUREMENT RESULTS: Intervals: Rate: 74 SC: QRSD: 98 QT: 418 QTc: 463 [place]: P: SC: QRS: 60 T: 143 INTERPRETIVE STATEMENTS: Atrial fibrillation Nonspecific ST and T wave abnormality, probably digitalis effect Abnormal ECG Compared to ECG 06/26/2018 08:50:42 ST (T wave) deviation now present Myocardial infarct finding no longer present Electronically Signed On 07-23-18 16:58:53 CARVER HAND by Guanakito Roa
[2018-07-23 18:38] VITALS: BP 110/62; TEMP 97.2; O2SAT 96
== END 2018-07-23 17:31 | disposition home or self-care (01) ==
LOC: ER 09:26
DX: G47.51 Confusional arousals (principal); G30.9 Alzheimer's disease, unspecified; F02.80 Dementia in other diseases classified elsewhere, unspecified severity, without behavioral disturbance, psychotic disturbance, mood disturbance, and anxiety; I10 Essential (primary) hypertension; E03.9 Hypothyroidism, unspecified; E11.9 Type 2 diabetes mellitus without complications; F41.9 Anxiety disorder, unspecified; F32.9 Major depressive disorder, single episode, unspecified; J44.9 Chronic obstructive pulmonary disease, unspecified; Z79.82 Long term (current) use of aspirin; Z79.4 Long term (current) use of insulin; Z88.0 Allergy status to penicillin; Z88.5 Allergy status to narcotic agent
CPT/HCPCS: 36415; 51702; 70450; 71045; 74177; 80048; 80076; 82550; 82553; 82962; 83605; 83690; 84145; 84484; 85025; 85610; 85730; 87040 ×2; 87077; 87086; 87088; 87186; 93005; 96374; 96375; 99285; J0696; J7030; Q9967; 81003; 81015

== ENCOUNTER 2018-07-28 17:11 | Inpatient (IN) | payer OTHER ==
[2018-07-28 18:45] LABS: Protime INR 1.33
[2018-07-28 18:46] LABS: Absolute Lymphocytes (CBC) 0.5 K/uL (0.7-4.9); Absolute Monocytes 0.5 K/uL (0.1-1.3); Basophils % 0.5 % (0-1.3); Eosinophils % 0.3 % (0-4.4); Hematocrit 40.7 % (36.0-45.0); Lymphocytes % 13.2 % (15.3-44.8); MPV 10.5 fL (7.6-11.3); Monocytes % 11.4 % (3.3-12.3); RBC Red Blood Cell Count 4.69 M/uL (3.86-4.86)
--- NOTE | 2018-07-28 18:48 | RAD REPORT ---
EXAM DESCRIPTION: [place] Single View07/28/2018 6:41 pm CLINICAL HISTORY: Congestion COMPARISON: July 23, 2018 FINDINGS: The lungs appear clear of acute infiltrate. The heart is mildly to moderately enlarged IMPRESSION: No acute abnormalities displayed
[2018-07-28 19:05] LABS: ALT/SGPT 22 U/L (12-78); AST/SGOT 24 U/L (15-37); Albumin 2.4 g/dL (3.4-5.0); Alkaline Phosphatase 72 U/L (45-117); BUN Blood Urea Nitrogen 22 mg/dL (7-18); Bicarbonate 28 mmol/L (21-32); Bilirubin Direct < 0.1 mg/dL (0-0.2); Bilirubin Total 0.3 mg/dL (0.2-1.0); Glucose Level 195 mg/dL (74-106); NT PRO-BNP 843 pg/mL (<450); Potassium 3.8 mmol/L (3.5-5.1); Protein, Total 5.6 g/dL (6.4-8.2); Sodium Level 140 mmol/L (136-145); Troponin (Emerg Dept Use Only) 0.03 ng/mL (0.0-0.045)
[2018-07-28 19:07] LABS: Magnesium 1.2 mg/dL (1.8-2.4)
[2018-07-28] MEDS ORDERED: Magnesium Sulfate 2gm IVPB 2 G/50 ML BAG IV ONE (19:37)
[2018-07-28] MEDS ORDERED: NA CHLORIDE 0.9% 1,000 ML ONE (20:48)
--- NOTE | 2018-07-28 21:11 | ER ---
Nurse's Notes [facility] Name: Beata Mayer Age: 87 yrs Sex: Female : 1930 Arrival Date: 07/28/2018 Time: 17:13 Bed 18 Private MD: Diagnosis: Gastrointestinal hemorrhage, unspecified;Influenza due to other identified influenza virus Presentation: 07/28 17:14 Presenting complaint: EMS states: pt is from [facility] nursing tested POSITIVE for tw2 FLU, this morning started having blood stools, x 4, upon palpation pain to lower left quadrant, pt is oriented to self only, vs stable. Transition of care: patient was received from another setting of care (long-term care facility), [facility]. Onset of symptoms was July 28, 2018. Risk Assessment: Do you want to hurt yourself or someone else? Patient reports no desire to harm self or others. Initial Sepsis Screen: Does the patient meet any 2 criteria? Altered Mental Status. No. Patient's initial sepsis screen is negative. Does the patient have a suspected source of infection? No. Patient's initial sepsis screen is negative. Care prior to arrival: None. 17:14 Method Of Arrival: EMS: [facility] tw2 17:14 Acuity: KELBY 3 tw2 Historical: - Allergies: 17:26 Morphine; tw2 17:26 PENICILLINS; tw2 17:26 sertraline; tw2 - Home Meds: 19:06 acetaminophen 650 mg Oral TbER every 6 hours as needed [Active]; Acidophilus Oral cap tw2 daily [Active]; aspirin 81 mg Oral TbEC 1 tab once daily [Active]; [place] Thyroid 30 mg Oral tab daily [Active]; amlodipine 5 mg tab [Active]; canagliflozin 300 mg Oral once daily [Active]; carvedilol 12.5 mg Oral tab 2 times per day [Active]; Depakote 125 mg Oral TbEC 1 tab 2 times per day [Active]; docusate sodium 100 mg Oral cap once daily [Active]; folic acid 800 mcg Oral tab once daily [Active]; nitrofurantoin macrocrystal 100 mg Oral cap once daily [Active]; Novolog Sub-Q per sliding scale [Active]; Namenda 10 mg Oral tab 1 tab 2 times per day [Active]; Lantus 100 unit/mL Sub-Q soln 25 units once a day [Active]; lisinopril 40 mg Oral tab 1 tab once daily [Active]; Januvia 100 mg Oral tab 1 tab once daily [Active]; omeprazole 20 mg Oral cpDR 1 cap once daily [Active]; GlycoLax 17 gram/dose Oral powd once daily [Active]; Risperdal 0.5 mg Oral tab at bedtime [Active]; - PMHx: 17:26 Diabetes - NIDDM; GERD; Hypothyroidism; Pneumonia; Hypertension; Arthritis; COPD; tw2 Urinary incontinence; Depression; Anxiety; Dementia; Alzheimers; - PSHx: 17:26 Knee surgery; hip surgery; tw2 - Immunization history:: Adult Immunizations. - Social history:: Smoking status: . - Ebola Screening: : Patient denies travel to an Ebola-affected area in the 21 days before illness onset. Screenin:45 Abuse screen: Denies threats or abuse. Nutritional screening: No deficits noted. tw2 Tuberculosis screening: No symptoms or risk factors identified. Fall Risk Secondary diagnosis (15 points) dementia, impaired mobility. Assessment: 17:15 General: Appears in no apparent distress. obese, Behavior is calm. Pain: Noted to be tw2 grimacing, when palpating left lower abdomen. Neuro: Level of Consciousness is awake, Oriented to person. Cardiovascular: Heart tones S1 S2 Patient's skin is warm and dry. Respiratory: Airway is patent Respiratory effort is even, unlabored, Respiratory pattern is regular, symmetrical, Breath sounds with wheezes bilaterally. GI: Abdomen is round obese, Bowel sounds present X 4 quads. staff at [facility] report bloody stools. GI: Abdomen is tender to palpation in left lower quadrant. : No signs and/or symptoms were reported regarding the genitourinary system. EENT: No signs and/or symptoms were reported regarding the EENT system. Derm: Skin is fragile, is thin, Skin is dry, Skin temperature is warm. Musculoskeletal: Range of motion: intact in all extremities. 18:40 Reassessment: Patient appears in no apparent distress at this time. No changes from tw2 previously documented assessment. Patient and/or family updated on plan of care and expected duration. Pain level reassessed. 18:44 Reassessment: pts daughter at bedside at this time, would like to speak with Dr. Almaraz tw2 regarding pts status, provider notified. 19:05 General: Appears in no apparent distress. obese, Behavior is calm. Pain: Noted to be rr5 confused. 19:05 Neuro: Level of Consciousness is awake, confused, Oriented to person. Cardiovascular: rr5 Capillary refill < 3 seconds Patient's skin is warm and dry. Respiratory: Airway is patent Respiratory effort is even, unlabored, Respiratory pattern is regular, symmetrical. GI: Abdomen is round obese, Bowel sounds present X 4 quads. Abdomen is tender to palpation in left lower quadrant blood in stool. : No signs and/or symptoms were reported regarding the genitourinary system. EENT: No signs and/or symptoms were reported regarding the EENT system. Derm: Skin is fragile, is thin, Skin is dry, Skin temperature is warm. 20:00 Reassessment: Patient appears in no apparent distress at this time. No changes from rr5 previously documented assessment. 21:10 Reassessment: Patient appears in no apparent distress at this time. Patient is alert, rr5 oriented x 3, equal unlabored respirations, skin warm/dry/pink. positive blood in stool examined by dr. almaraz, for admission. conatct number of daughter [id number] (Rema). 22:20 Reassessment: Patient appears in no apparent distress at this time. Patient is alert, rr5 oriented x 3, equal unlabored respirations, skin warm/dry/pink. for admission. seen and examined by dr thompson at bedside. 23:30 Reassessment: Patient appears in no apparent distress at this time. CT scan staff rr5 informed oral contrast consumed. 07/29 00:30 Reassessment: Patient appears in no apparent distress at this time. No changes from rr5 previously documented assessment. awaiting for Ct scan. 01:15 Reassessment: went to CT scan en route to room. rr5 Vital Signs: 07/28 17:23 BP 127 / 64; Pulse 85; Resp 16; Temp 98.7(O); Pulse Ox 98% on R/A; Pain 0/10; tw2 18:37 BP 130 / 74; Pulse 74; Resp 19; Pulse Ox 98% on R/A; tw2 19:05 BP 134 / 66; Pulse 88; Resp 20; Temp 98.7; Pulse Ox 99% ; rr5 20:00 BP 141 / 70; Pulse 80; Resp 17; Pulse Ox 98% ; rr5 21:00 BP 146 / 73; Pulse 79; Resp 18; Pulse Ox 98% ; rr5 22:00 BP 132 / 92; Pulse 85; Resp 15; Pulse Ox 98% ; rr5 23:00 BP 153 / 98; Pulse 89; Resp 16; Pulse Ox 99% ; rr5 07/29 00:00 BP 145 / 82; Pulse 75; Resp 18; Pulse Ox 99% ; rr5 01:15 BP 141 / 70; Pulse 79; Resp 17; Pulse Ox 98% ; rr5 ED Course: 07/28 17:13 Patient arrived in ED. tw2 17:15 Call light in reach. Side rails up X2. panel monitor on. Pulse ox on. NIBP on. Warm tw2 blanket given. pt is wearing face mask at this time. 17:23 Triage completed. tw2 17:24 Arm band placed on. tw2 17:26 Luis Felipe Almaraz MD is Attending Physician. gs 18:04 Sudha Lomeli RN is Primary Nurse. tw2 18:35 Inserted saline lock: 22 gauge in left forearm, using aseptic technique. Blood tw2 collected. 18:37 EKG done, by ED staff, reviewed by Luis Felipe Almaraz MD. mh5 18:45 XRAY Chest (1 view) In Process Unspecified. EDMS 19:04 Report given to ASHLEY Romano. tw2 19:07 Notified ED physician of a critical lab result(s). Mag of 1.2 Dr Almaraz notified. bb 21:09 Virgie Jackson MD is Hospitalizing Provider. 07/29 00:04 No provider procedures requiring assistance completed. Patient admitted, IV remains in rr5 place. intact, bleeding controlled, No redness/swelling at site. Administered Medications: 07/28 19:54 Drug: Magnesium Sulfate 2 grams Route: IVPB; Infused Over: 2 hrs; Site: left forearm; rr5 21:00 Follow up: Response: No adverse reaction; IV Status: Completed infusion rr5 21:00 Follow up: IV Intake: 50ml rr5 20:40 Drug: NS 0.9% 1000 ml Route: IV; Rate: 1 bolus; Site: left forearm; rr5 22:30 Follow up: Response: No adverse reaction; IV Status: Completed infusion; IV Intake: rr5 1000ml Point of Care Testing: Guaiac: 21:10 Stool Guaiac: Positive; Stool Hemoccult Control: Pass; rr5 21:10 by positive bloody stool rr5 Intake: 21:00 IV: 50ml; Total: 50ml. rr5 22:30 IV: 1000ml; Total: 1050ml. rr5 21:10 bloody stool rr5 Output: 21:10 Other: 1 (Diapers) ; Total: 0ml. rr5 21:10 bloody stool rr5 Outcome: 21:10 Decision to Hospitalize by Provider. 07/29 00:49 Admitted to Tele accompanied by tech, via stretcher, room 417, with chart, Report rr5 called to michelle RAMIREZ Condition: stable Instructed on the need for admit. 01:51 Patient left the ED. ao Signatures: Dispatcher [employer] EDMaureen Morrow RN RN Armando Donald RN Sudha Hess RN ASHLEY [facility] Michelle Wang [facility] Luis Felipe Almaraz MD MD gs Roque, Raymond RN RN rr5 Corrections: (The following items were deleted from the chart) 07/28 18:41 18:37 Pulse 74bpm; Resp 19bpm; Pulse Ox 98% RA; tw 18:45 18:45 Fall Risk None identified.
--- NOTE | 2018-07-28 21:11 | EDPHYS ---
Physician Documentation [facility] Name: Beata Mayer Age: 87 yrs Sex: Female : 1930 Arrival Date: 07/28/2018 Time: 17:13 Bed 18 Private MD: ED Physician Luis Felipe Reddy HPI: 07/28 20:30 This 87 yrs old Female presents to ER via EMS with complaints of Bloody gs Stools, Flu Symptoms. 20:30 Onset: The symptoms/episode began/occurred today. Modifying factors: there are no gs obvious modifying factors. Associated signs and symptoms: Pertinent positives: arthralgias, decreased appetite. Severity of symptoms: At their worst the symptoms were moderate in the emergency department the symptoms are unchanged. The patient has not experienced similar symptoms in the past. Historical: - Allergies: 17:26 Morphine; tw2 17:26 PENICILLINS; tw2 17:26 sertraline; tw2 - Home Meds: 19:06 acetaminophen 650 mg Oral TbER every 6 hours as needed [Active]; Acidophilus Oral cap tw2 daily [Active]; aspirin 81 mg Oral TbEC 1 tab once daily [Active]; [place] Thyroid 30 mg Oral tab daily [Active]; amlodipine 5 mg tab [Active]; canagliflozin 300 mg Oral once daily [Active]; carvedilol 12.5 mg Oral tab 2 times per day [Active]; Depakote 125 mg Oral TbEC 1 tab 2 times per day [Active]; docusate sodium 100 mg Oral cap once daily [Active]; folic acid 800 mcg Oral tab once daily [Active]; nitrofurantoin macrocrystal 100 mg Oral cap once daily [Active]; Novolog Sub-Q per sliding scale [Active]; Namenda 10 mg Oral tab 1 tab 2 times per day [Active]; Lantus 100 unit/mL Sub-Q soln 25 units once a day [Active]; lisinopril 40 mg Oral tab 1 tab once daily [Active]; Januvia 100 mg Oral tab 1 tab once daily [Active]; omeprazole 20 mg Oral cpDR 1 cap once daily [Active]; GlycoLax 17 gram/dose Oral powd once daily [Active]; Risperdal 0.5 mg Oral tab at bedtime [Active]; - PMHx: 17:26 Diabetes - NIDDM; GERD; Hypothyroidism; Pneumonia; Hypertension; Arthritis; COPD; tw2 Urinary incontinence; Depression; Anxiety; Dementia; Alzheimers; - PSHx: 17:26 Knee surgery; hip surgery; tw2 - Immunization history:: Adult Immunizations. - Social history:: Smoking status: . - Ebola Screening: : Patient denies travel to an Ebola-affected area in the 21 days before illness onset. ROS: 20:30 All other systems are negative. gs Exam: 20:30 Head/Face: Normocephalic, atraumatic. Eyes: Pupils equal round and reactive to light, gs extra-ocular motions intact. Lids and lashes normal. Conjunctiva and sclera are non-icteric and not injected. Cornea within normal limits. Periorbital areas with no swelling, redness, or edema. ENT: Nares patent. No nasal discharge, no septal abnormalities noted. Tympanic membranes are normal and external auditory canals are clear. Oropharynx with no redness, swelling, or masses, exudates, or evidence of obstruction, uvula midline. Mucous membranes moist. Neck: Trachea midline, no thyromegaly or masses palpated, and no cervical lymphadenopathy. Supple, full range of motion without nuchal rigidity, or vertebral point tenderness. No Meningismus. Chest/axilla: Normal chest wall appearance and motion. Nontender with no deformity. No lesions are appreciated. 20:30 Respiratory: Lungs have equal breath sounds bilaterally, clear to auscultation and percussion. No rales, rhonchi or wheezes noted. No increased work of breathing, no retractions or nasal flaring. Abdomen/GI: Soft, non-tender, with normal bowel sounds. No distension or tympany. No guarding or rebound. No evidence of tenderness throughout. Back: No spinal tenderness. No costovertebral tenderness. Full range of motion. Skin: Warm, dry with normal turgor. Normal color with no rashes, no lesions, and no evidence of cellulitis. MS/ Extremity: Pulses equal, no cyanosis. Neurovascular intact. Full, normal range of motion. 20:30 Constitutional: The patient appears awake. 20:30 Cardiovascular: Rate: normal, Rhythm: irregularly irregular, Pulses: no pulse deficits are appreciated. 20:30 ECG was reviewed by the Attending Physician. 20:30 Neuro: Exam negative for acute changes, Orientation: Not oriented to place, time, situation, Mentation: confused, Motor: moves all fours. 21:08 Abdomen/GI: Rectal exam: Stool: grossly bloody. Vital Signs: 17:23 BP 127 / 64; Pulse 85; Resp 16; Temp 98.7(O); Pulse Ox 98% on R/A; Pain 0/10; tw2 18:37 BP 130 / 74; Pulse 74; Resp 19; Pulse Ox 98% on R/A; tw2 19:05 BP 134 / 66; Pulse 88; Resp 20; Temp 98.7; Pulse Ox 99% ; rr5 20:00 BP 141 / 70; Pulse 80; Resp 17; Pulse Ox 98% ; rr5 21:00 BP 146 / 73; Pulse 79; Resp 18; Pulse Ox 98% ; rr5 22:00 BP 132 / 92; Pulse 85; Resp 15; Pulse Ox 98% ; rr5 23:00 BP 153 / 98; Pulse 89; Resp 16; Pulse Ox 99% ; rr5 07/29 00:00 BP 145 / 82; Pulse 75; Resp 18; Pulse Ox 99% ; rr5 01:15 BP 141 / 70; Pulse 79; Resp 17; Pulse Ox 98% ; rr5 MDM: 07/28 17:45 Patient medically screened. gs 21:11 Differential diagnosis: viral Infection, bacterial infection, pneumonia gi bleeding. Data reviewed: vital signs, nurses notes. Counseling: I had a detailed discussion with the patient and/or guardian regarding: the historical points, exam findings, and any diagnostic results supporting the discharge/admit diagnosis. Response to treatment: the patient's symptoms have mildly improved after treatment, and as a result, I will admit patient. 07/28 17:44 Order name: Basic Metabolic Panel; Complete Time: 19:16 07/28 17:44 Order name: CBC with Diff; Complete Time: 19:16 07/28 17:44 Order name: LFT's; Complete Time: 19:16 07/28 17:44 Order name: Magnesium; Complete Time: 19:16 07/28 17:44 Order name: NT PRO-BNP; Complete Time: 19:16 07/28 17:44 Order name: PT-INR; Complete Time: 19:16 07/28 17:44 Order name: Troponin (emerg Dept Use Only); Complete Time: 19:16 07/28 17:44 Order name: XRAY Chest (1 view); Complete Time: 19:16 07/28 17:44 Order name: EKG; Complete Time: 17:45 07/28 17:44 Order name: Cardiac monitoring; Complete Time: 18:04 07/28 17:44 Order name: Type And Screen; Complete Time: 19:16 07/28 22:47 Order name: Abdomen EDFL 07/28 17:44 Order name: EKG - Nurse/Tech; Complete Time: 18:04 07/28 17:44 Order name: IV Saline Lock; Complete Time: 18:04 07/28 17:44 Order name: Labs collected and sent; Complete Time: 18:54 07/28 17:44 Order name: O2 Per Protocol; Complete Time: 18:04 07/28 17:44 Order name: O2 Sat Monitoring; Complete Time: 18:04 gs EC:30 Rate is 77 beats/min. Rhythm is irregularly irregular. QRS interval is normal. QT gs interval is normal. T waves are Flattened. Clinical impression: Abnormal EKG without significant change and Atrial Fibrillation. Interpreted by me. Administered Medications: 19:54 Drug: Magnesium Sulfate 2 grams Route: IVPB; Infused Over: 2 hrs; Site: left forearm; rr5 21:00 Follow up: Response: No adverse reaction; IV Status: Completed infusion rr5 21:00 Follow up: IV Intake: 50ml rr5 20:40 Drug: NS 0.9% 1000 ml Route: IV; Rate: 1 bolus; Site: left forearm; rr5 22:30 Follow up: Response: No adverse reaction; IV Status: Completed infusion; IV Intake: rr5 1000ml Point of Care Testing: Guaiac: 21:10 Stool Guaiac: Positive; Stool Hemoccult Control: Pass; rr5 21:10 by positive bloody stool rr5 Disposition: 07/28/18 21:10 Hospitalization ordered by Virgie Jackson for Observation. Preliminary diagnosis are Gastrointestinal hemorrhage, unspecified, Influenza due to other identified influenza virus. - Bed requested for Telemetry/MedSurg (observation). - Status is Observation. ao - Condition is Stable. - Problem is new. - Symptoms have improved. UTI on Admission? No Signatures: Dispatcher [employer] [facility] Irasema Lindsey RN RN Armando Thurston, RN RN ao Sudha Lomeli, RN RN tw2 Luis Felipe Reddy MD MD Juan Antonio Jesus RN RN rr5 Corrections: (The following items were deleted from the chart) 22:35 21:10 Hospitalization Ordered by Virgie Jackson MD for Observation. Preliminary diagnosis is Gastrointestinal hemorrhage, unspecified; Influenza due to other identified influenza virus. Bed requested for Telemetry/MedSurg (observation). Status is Observation. Condition is Stable. Problem is new. Symptoms have improved. UTI on Admission? No. 07/29 01:51 07/28 22:35 07/28/2018 21:10 Hospitalization Ordered by Virgie Jackson MD for ao Observation. Preliminary diagnosis is Gastrointestinal hemorrhage, unspecified; Influenza due to other identified influenza virus. Bed requested for Telemetry/MedSurg (observation). Status is Observation. Condition is Stable. Problem is new. Symptoms have improved. UTI on Admission? No.
--- NOTE | 2018-07-28 22:54 | P.HP ---
Certification for Inpatient Patient admitted to: Inpatient With expected LOS: >2 Midnights Practitioner: I am a practitioner with admitting privileges, knowledge of patient current condition, hospital course, and medical plan of care. Services: Services provided to patient in accordance with Admission requirements found in Title 42 Section 412.3 of the Code of Federal Regulations Patient History Date of Service: 07/28/18 Reason for admission: lower GIB, influenza infection History of Present Illness: Ms Mayer is an 87 years old woman with multiple medical problems including Alzheimer's dementia, COPD, DVT on Eliquis, HTN, DM II, who was recently diagnosed with influenza infection, already on Tamiflu treatment, resident of a local residential, came to ER since she start this morning of bloody stools. No history of fever or chills. She had LLQ pain to palpation. No nausea or vomiting. Lab work shows normal Hgb/Hct values. WBC count normal, CXR no acute abnormalities. She is desoriented as baseline, not able to provide any history. During her stay in ED, she had a bloody bowel movement mixed with mucus. Allergies Penicillins Allergy (Mild, Verified 06/26/18 17:21) Rash duloxetine HCl [From Cymbalta] Allergy (Verified 06/26/18 17:21) Unknown morphine Adverse Reaction (Severe, Verified 06/26/18 17:21) combative Ycjleyc-Gbs-Lzu Reductase Inhibitor Allergy (Uncoded 06/26/18 17:21) Unknown Home medications list reviewed: Yes Home Medications: Acetaminophen [Tylenol] 650 mg PO Q6HR PRN 06/26/18 Amlodipine [Norvasc*] 5 mg PO DAILY 06/26/18 Apixaban [Eliquis] 5 mg PO Q12H 06/26/18 Aspirin Chewable [Aspirin Chewable*] 81 mg PO DAILY 06/26/18 Carvedilol [Coreg*] 12.5 mg PO BID 06/26/18 Divalproex [Depakote Sprinkle*] 125 mg PO BID 06/26/18 Docusate Sodium 100 mg PO DAILY 06/26/18 Folic Acid 0.8 mg PO DAILY 06/26/18 Insulin -Regular Human [Novolin -R*] See Protocol SQ AC 06/26/18 Insulin Glargine,Hum.rec.anlog [Lantus Solostar] 25 units SQ DAILY 06/26/18 L. Acidophilus/Pectin, C-Road [Acidophilus Capsule] 1 cap PO DAILY 06/26/18 Memantine HCl [Namenda*] 10 mg PO BID 06/26/18 Omeprazole 20 mg PO DAILY 06/26/18 Risperidone [Risperdal] 0.5 mg PO BEDTIME 06/26/18 Thyroid Tab [[place] Thyroid*] 30 mg PO DAILY 06/26/18 Albuterol Neb [Proventil 0.083% Neb Soln] 3 ml NEB TID PRN #90 amp 06/28/18 Arformoterol Tartrate [Brovana] 2 ml NEB BIDRESP #60 vial.neb 06/28/18 Cefdinir [Cefdinir*] 300 mg PO BID #14 cap 06/28/18 predniSONE [Deltasone*] 10 mg PO SEECOM #15 tab 06/28/18 - Past Medical/Surgical History Diabetic: Yes -: esbl urine 2018 -: alzheimers -: arthritis -: copd -: dementia -: depression -: dm -: gerd -: htn -: hypthyroidism -: pneumonia -: blood clots x4 left 2018 -: bilat knee replacement -: right hip replacement - Family History Father -: Other (see notes) Notes: ra Mother -: Other (see notes) Notes: dementia, tia Brother -: Hypertension, Diabetes - Social History Alcohol use: No CD- Drugs: No Caffeine use: Yes Place of Residence: [facility] Review of Systems 10-point ROS is otherwise unremarkable Physical Examination - Physical Exam General: Alert, In no apparent distress HEENT: Atraumatic, PERRLA, Mucous membr. moist/pink, EOMI, Sclerae nonicteric Neck: Supple, 2+ carotid pulse no bruit, No LAD, Without JVD or thyroid abnormality Respiratory: Diminished, Rhonchi/gurgles (bilateral rhonchi ) Cardiovascular: Normal S1 S2, No gallops Gastrointestinal: Normal bowel sounds, No tenderness Musculoskeletal: No tenderness Integumentary: No rashes Neurological: Normal speech, Normal strength at 5/5 x4 extr, Normal tone, Normal affect Lymphatics: No axilla or inguinal lymphadenopathy - Studies Laboratory Data (last 24 hrs) 07/28/18 18:20: PT 15.5 H, INR 1.33 07/28/18 18:20: WBC 4.0 L D, Hgb 13.3, Hct 40.7, Plt Count 113 L D 07/28/18 18:20: Sodium 140, Potassium 3.8, BUN 22 H, Creatinine 0.80, Glucose 195 H, Magnesium 1.2 L* D, Total Bilirubin 0.3, AST 24, ALT 22, Alkaline Phosphatase 72 Assessment and Plan - Problems (Diagnosis) (1) Influenza Current Visit: Yes Status: Acute (2) GIB (gastrointestinal bleeding) Current Visit: Yes Status: Acute Qualifiers: GI bleed type/associated pathology: unspecified gastrointestinal hemorrhage type Qualified Code(s): K92.2 - Gastrointestinal hemorrhage, unspecified (3) Dementia Onset Date: 06/29/18 Current Visit: No Status: Chronic Qualifiers: Dementia type: Alzheimer's disease Alzheimer's disease onset: early-onset Dementia behavioral disturbance: without behavioral disturbance Qualified Code(s): G30.0 - Alzheimer's disease with early onset; F02.80 - Dementia in other diseases classified elsewhere without behavioral disturbance (4) Diabetes Onset Date: 06/29/18 Current Visit: No Status: Chronic Qualifiers: Diabetes mellitus type: type 2 Diabetes mellitus halfway insulin use: without halfway use Diabetes mellitus complication status: with hyperglycemia Qualified Code(s): E11.65 - Type 2 diabetes mellitus with hyperglycemia (5) HTN (hypertension) Onset Date: 06/29/18 Current Visit: No Status: Chronic Qualifiers: Hypertension type: essential hypertension Qualified Code(s): I10 - Essential (primary) hypertension - Plan Will admit the patient due to lower GIB. Will order CT abd/pelvis to R/O diverticulosis, diverticulitis, colonic mass. HH within normal limits, no need for blood transfusion. Consult Dr Escudero. Continue Tamiflu. - Advance Directives Does patient have a Living Will: No Does patient have a Durable POA for Healthcare: Yes - Code Status/Comfort Care Code Status Assessed: Yes Code Status: Do Not Resuscitate
[2018-07-29] MEDS ORDERED: ONDANSETRON 4 MG/2 ML VIAL IV PRN (01:50)
[2018-07-29] MEDS: INSULIN -REGULAR HUMAN 50 UNIT/0.5 ML ML SQ SCH ×4 (01:50→18:00)
[2018-07-29] MEDS ORDERED: SODIUM CHLORIDE 0.9% 10ML INJ IV PRN (01:50)
[2018-07-29] MEDS ORDERED: IPRATROPIUM BROM 0.5MG/2.5ML NEB PRN (01:50)
[2018-07-29] MEDS ORDERED: ACETAMINOPHEN 500 MG TAB PO PRN (01:50)
[2018-07-29] MEDS ORDERED: ALBUTEROL 2.5 MG/3 ML NEB SOL NEB PRN (01:50)
[2018-07-29 02:05] VITALS: BMI 37.5
[2018-07-29] MEDS: NA CHLORIDE 0.9% 1,000 ML IV SCH ×2 (02:24→10:58)
[2018-07-29 04:58] LABS: BUN Blood Urea Nitrogen 17 mg/dL (7-18); Bicarbonate 28 mmol/L (21-32); Glucose Level 173 mg/dL (74-106); Potassium 3.4 mmol/L (3.5-5.1); Sodium Level 141 mmol/L (136-145)
[2018-07-29 05:05] LABS: Absolute Lymphocytes (CBC) 0.7 K/uL (0.7-4.9); Absolute Monocytes 0.5 K/uL (0.1-1.3); Absolute Neutrophil 3.2 K/uL (1.8-8.0); Basophils % 0.4 % (0-1.3); Eosinophils % 0.3 % (0-4.4); Hematocrit 38.1 % (36.0-45.0); MPV 11.3 fL (7.6-11.3); Monocytes % 12.4 % (3.3-12.3); RBC Red Blood Cell Count 4.44 M/uL (3.86-4.86)
[2018-07-29] MEDS: KCL 20 MEQ/100 mL IVPB 20 MEQ/100 ML BAG IV SCH ×2 (05:50→08:08)
[2018-07-29] MEDS: OSELTAMIVIR 75 MG CAP PO SCH ×2 (05:51→17:51)
[2018-07-29 05:54] LABS: Magnesium 1.4 mg/dL (1.8-2.4)
[2018-07-29] MEDS ORDERED: Magnesium Sulfate 2gm IVPB 2 G/50 ML BAG IV ONE ×2 (06:08→19:00)
[2018-07-29 06:16] LABS: Blood Morphology Comment NOT SEEN (NOT SEEN); Platelet Estimate DECR
--- NOTE | 2018-07-29 07:48 | EKG ---
Test Date: 2018-07-28 Test Time: 18:26:15 Knotting Machine Operator Portable: JAMEEL MEASUREMENT RESULTS: Intervals: Rate: 77 HI: QRSD: 86 QT: 386 QTc: 436 [place]: P: HI: QRS: 36 T: 55 INTERPRETIVE STATEMENTS: Atrial fibrillation Anterior infarct, age undetermined Abnormal ECG Compared to ECG 07/23/2018 11:08:32 Myocardial infarct finding now present ST (T wave) deviation no longer present Electronically Signed On 07-29-18 07:48:06 HOSPICE TEAM LEAD by Guanakito Roa
[2018-07-29] MEDS: METRONIDAZOLE 500mg IVPB 500 MG/100 ML BAG IV SCH ×2 (08:03→17:19)
[2018-07-29] MEDS: CIPROFLOXACIN 400mg IV 400 MG/200 ML BAG IV SCH ×2 (08:04→22:00)
[2018-07-29] MEDS: PANTOPRAZOLE 40 MG INJ IVP SCH (08:04)
[2018-07-29 08:39] LABS: Potassium 3.8 mmol/L (3.5-5.1)
[2018-07-29 08:41] LABS: Magnesium 1.3 mg/dL (1.8-2.4)
--- NOTE | 2018-07-29 09:42 | RAD REPORT ---
EXAM DESCRIPTION: CT - Abdomen Pelvis W Contrast - 07/29/2018 7:36 am CLINICAL HISTORY: Abdominal pain. Hematochezia COMPARISON: July 23, 2018 TECHNIQUE: Computed axial tomography of the abdomen and pelvis was obtained. 100 cc Isovue-300 is ad ministered intravenously. Oral contrast was given. All CT scans are performed using dose optimization technique as appropriate and may include automated exposure control or mA/KV adjustment according to patient size. FINDINGS: The liver, spleen, pancreas, adrenals and kidneys appear unremarkable. The appendix is normal caliber. There is no evidence of diverticulitis The wall of the rectosigmoid colon is markedly thickened. Small umbilical hernia. Spondylosis involves the lumbar spine resulting spinal stenosis IMPRESSION: Marked thickening of the wall of the rectosigmoid colon consistent with proctitis/coliti s
[2018-07-29] MEDS ORDERED: GOLYTELY 4000 ML PO SCH (17:00)
[2018-07-29] MEDS ORDERED: MAGNESIUM CITRATE 300 ML BOT PO SCH (17:00)
[2018-07-29] MEDS: D5.45NS W/KCL 20MEQ 20 MEQ/1,000 ML BAG IV SCH (17:20)
[2018-07-29] MEDS: METOCLOPRAMIDE 10 MG/2mL INJ IV SCH ×2 (17:51→23:00)
--- NOTE | 2018-07-29 19:23 | PN ---
Date of Progress Note: 07/29/2018 Subjective: The patient is seen and examined. Chart reviewed and case discussed with RN. The patie nt is demented at baseline. Unable to cooperate in history taking. Medications: List reviewed. Physical Examination: Vital Signs: Temperature 97, heart rate 83, blood pressure 134/69, respirations 16, O2 of 94% on jean m air. General: Awake, alert, not oriented, confused, demented female, obese, somewhat ill-appearing. CV: S1, S2. Irregularly irregular. Peripheral pulses present. Respiratory: Moving air well bilaterally. No wheezing. Gastrointestinal: Abdomen is soft, nontender, nondistended. Positive bowel sounds. No guarding or rigidity. Extremities: No clubbing, cyanosis, or edema. Neurologic: Nonfocal. Laboratory Data: WBC 4.4, H and H 12.5 and 38.1, platelets 88, neutrophils 71%. INR 1.33. Sodium 1 41; potassium 3.4, repeat potassium is 3.8; chloride 107; CO2 of 28; BUN 17; creatinine 0.55; glucose 173; calcium 7.8; magnesium 1.4; albumin 2.4. CT scan of the abdomen shows thickening of the wall o f the rectosigmoid colon consistent with proctitis and colitis. Assessment: An 87-year-old female with: 1.Gastrointestinal bleed, likely secondary to colitis. We will continue to monitor hemoglobin and h ematocrit. Dr. Escudero has been consulted. 2.Acute colitis of the rectosigmoid colon without abscess. We will continue with IV antibiotics. K eep n.p.o. at this time. 3.Influenza. The patient was diagnosed outpatient. Continue Tamiflu and droplet precautions. 4.Alzheimer dementia, early onset, without behavioral disturbance. Continue home medications as harvey ropriate. 5.Diabetes mellitus type 2 without long-term use of insulin with hyperglycemia. We will continue sl iding scale insulin and Accu-Cheks. 6.Essential hypertension, stable. 7.Obesity, BMI 37.6. 8.History of blood clots, on anticoagulation. 9.Atrial fibrillation, chronic. 10.Generalized osteoarthritis. 11.Chronic obstructive pulmonary disease, chronic bronchitis. 12.Hypothyroidism. Continue Synthroid. 13.Deep venous thrombosis prophylaxis with SCDs. No chemical anticoagulation due to gastrointestina l bleed. Plan: Resume home medications. Continue IV PPI, IV fluids. Follow up with GI recommendations. ANN MARIE Voice ID: [id number] Report ID: [id number]
[2018-07-29] MEDS ORDERED: HOME MED 1 EA UNK (Divalproex Sodium [Depakote] 125 MG) PO SCH (21:00)
[2018-07-29] MEDS: CARVEDILOL 12.5 MG TAB PO SCH (22:00)
[2018-07-29] MEDS: DIVALPROEX NA 125 MG CAP PO SCH (22:00)
[2018-07-29] MEDS: MEMANTINE HCL 10 MG TABLET PO SCH (22:00)
[2018-07-29 22:27] LABS: Urine Appearance CLEAR; Urine Bilirubin NEGATIVE (NEG); Urine Blood NEGATIVE (NEG); Urine Color YELLOW; Urine Glucose NEGATIVE (NEG); Urine Protein 1+ (NEG); Urine Specific Gravity >=1.030 (1.005-1.030); Urine Urobilinogen 0.2 mg/dL (0.2-1.0); Urine pH 5.5 (5.0-7.0)
[2018-07-29 23:10] LABS: Urine Microscopic Reflex ORDER UMIC
[2018-07-29 23:25] LABS: Urine Bacteria <20 /HPF (<20); Urine Culture Reflex Order NOT NEEDED; Urine RBC <5 /HPF (NONE SEEN)
[2018-07-29] MEDS ORDERED: MAGNESIUM SULFATE 1 gm IVPB 1 GM/100 ML BAG IV ONE (23:31)
[2018-07-30] MEDS: INSULIN -REGULAR HUMAN 50 UNIT/0.5 ML ML SQ SCH ×4 (01:00→21:31)
[2018-07-30] MEDS: METRONIDAZOLE 500mg IVPB 500 MG/100 ML BAG IV SCH ×3 (01:04→17:19)
[2018-07-30] MEDS: D5.45NS W/KCL 20MEQ 20 MEQ/1,000 ML BAG IV SCH ×3 (02:00→21:47)
[2018-07-30] MEDS: METOCLOPRAMIDE 10 MG/2mL INJ IV SCH (04:00)
[2018-07-30] MEDS: OSELTAMIVIR 75 MG CAP PO SCH ×2 (06:00→17:20)
[2018-07-30 06:25] LABS: Absolute Lymphocytes (CBC) 0.5 K/uL (0.7-4.9); Absolute Monocytes 0.5 K/uL (0.1-1.3); Absolute Neutrophil 5.1 K/uL (1.8-8.0); Basophils % 0.2 % (0-1.3); Eosinophils % 0.5 % (0-4.4); Hematocrit 34.6 % (36.0-45.0); Lymphocytes % 8.6 % (15.3-44.8); Monocytes % 7.9 % (3.3-12.3); RBC Red Blood Cell Count 4.02 M/uL (3.86-4.86)
[2018-07-30 06:31] LABS: BUN Blood Urea Nitrogen 10 mg/dL (7-18); Bicarbonate 28 mmol/L (21-32); Glucose Level 175 mg/dL (74-106); Magnesium 1.9 mg/dL (1.8-2.4); Potassium 3.7 mmol/L (3.5-5.1); Sodium Level 144 mmol/L (136-145)
[2018-07-30] MEDS: THYROID 30 MG TAB PO SCH (09:00)
[2018-07-30] MEDS: CARVEDILOL 12.5 MG TAB PO SCH ×2 (09:00→21:33)
[2018-07-30] MEDS: MEMANTINE HCL 10 MG TABLET PO SCH ×2 (09:00→21:33)
[2018-07-30] MEDS ORDERED: INSULIN GLARGINE HUM REC ANLOG 10 UNIT SQ SCH (09:00)
[2018-07-30] MEDS: FOLIC ACID 1 MG TABLET PO SCH (09:00)
[2018-07-30] MEDS: AMLODIPINE 5 MG TAB PO SCH (09:00)
[2018-07-30] MEDS: CIPROFLOXACIN 400mg IV 400 MG/200 ML BAG IV SCH ×2 (09:32→21:31)
[2018-07-30] MEDS: INSULIN GLARGINE 100 UNITS/ML SQ SCH (09:33)
[2018-07-30] MEDS: PANTOPRAZOLE 40 MG INJ IVP SCH (10:20)
--- NOTE | 2018-07-30 15:29 | PN ---
Date of Progress Note: 07/30/2018 Subjective: The patient is seen and examined. Chart reviewed and case discussed with RN. The patie nt was unable to tolerate her colonic prep as she is demented and was not participating. She only dr ank a quarter of the prep. The patient's scope will not be able to be done today. We will need to d iscuss with family regarding possible NG tube placement and re-prepping the patient. Medications: List reviewed. Physical Examination: Vital Signs: Temperature 97, heart rate 51, blood pressure 118/57, respirations 20, and O2 of 97% on room air. General: Awake, alert, and oriented x1, elderly female, demented, not cooperative with exam, somewha t agitated during the physical exam. CV: S1 and S2. Irregular rate and rhythm. Peripheral pulses present. Respiratory: Moving air well bilaterally. No wheezing. Gastrointestinal: Abdomen is soft, nontender, and nondistended. Positive bowel sounds. Extremities: No clubbing, cyanosis, or edema. Neurologic: Nonfocal. Laboratory Data: Sodium 144, potassium 3.7, chloride 110, CO2 of 28, BUN 10, creatinine 0.53, glucos e 175, calcium 8, and magnesium 1.9. WBC 6.2, H and H of 11.5 and 34.6, platelets 92, neutrophils 82 %. Assessment And Plan: An 87-year-old female with, 1.Gastrointestinal bleed secondary to colitis. The patient is unable to go for colonoscopy today du e to a bad prep. I appreciate Dr. Escudero's input, may need to re-prep the patient using NG tube. 2.Acute colitis of the rectosigmoid colon without abscess. We will continue with IV antibiotics. C ontinue n.p.o. status. Continue D5W. 3.Influenza. Continue Tamiflu with droplet precautions. 4.Alzheimer dementia early onset with behavioral disturbance. 5.Diabetes mellitus type 2 without long-term use of insulin with hyperglycemia. Continue sliding sc kaia insulin. Monitor blood glucose levels. 6.Essential hypertension, stable. 7.Obesity, BMI of 37.6. 8.History of blood clots, on anticoagulation, currently on hold due to gastrointestinal bleed. 9.Atrial fibrillation, chronic. 10.Generalized osteoarthritis. 11.Chronic obstructive pulmonary disease and chronic bronchitis. 12.Hypothyroidism. Continue Synthroid. 13.Deep venous thrombosis prophylaxis with SCDs. No chemical anticoagulation due to gastrointestina l bleed. PLAN: The patient has not had any further GI bleed. We will monitor H and H and need for transfusio n, may need to be re-prepped for colonoscopy. ANN MARIE Voice ID: [id number] Report ID: [id number]
[2018-07-30] MEDS ORDERED: GLUCAGON 1 MG/VIAL IM PRN (17:54)
[2018-07-30] MEDS ORDERED: D50W 25 GM/50 ML SYRINGE IV PRN (17:54)
[2018-07-30] MEDS: DIVALPROEX NA 125 MG CAP PO SCH (21:36)
[2018-07-31] MEDS: METRONIDAZOLE 500mg IVPB 500 MG/100 ML BAG IV SCH ×2 (02:00→09:40)
[2018-07-31] MEDS ORDERED: LORazepam 2 MG/ML VIAL IV ONE (06:00)
[2018-07-31] MEDS ORDERED: LORazepam 2 MG/ML VIAL ONE (06:16)
[2018-07-31 07:30] LABS: Absolute Lymphocytes (CBC) 0.8 K/uL (0.7-4.9); Absolute Monocytes 0.4 K/uL (0.1-1.3); Basophils % 0.3 % (0-1.3); Hematocrit 35.1 % (36.0-45.0); Lymphocytes % 14.9 % (15.3-44.8); MPV 9.9 fL (7.6-11.3); RBC Red Blood Cell Count 4.05 M/uL (3.86-4.86)
[2018-07-31] MEDS: INSULIN -REGULAR HUMAN 50 UNIT/0.5 ML ML SQ SCH ×3 (07:30→16:30)
[2018-07-31 07:56] LABS: BUN Blood Urea Nitrogen 7 mg/dL (7-18); Bicarbonate 28 mmol/L (21-32); Glucose Level 107 mg/dL (74-106); Potassium 3.6 mmol/L (3.5-5.1); Sodium Level 145 mmol/L (136-145)
[2018-07-31] MEDS: D5.45NS W/KCL 20MEQ 20 MEQ/1,000 ML BAG IV SCH (08:00)
[2018-07-31] MEDS: AMLODIPINE 5 MG TAB PO SCH (09:39)
[2018-07-31] MEDS: FOLIC ACID 1 MG TABLET PO SCH (09:39)
[2018-07-31] MEDS: OSELTAMIVIR 75 MG CAP PO SCH ×2 (09:39→17:09)
[2018-07-31] MEDS: CARVEDILOL 12.5 MG TAB PO SCH (09:39)
[2018-07-31] MEDS: THYROID 30 MG TAB PO SCH (09:39)
[2018-07-31] MEDS: INSULIN GLARGINE 100 UNITS/ML SQ SCH (09:40)
[2018-07-31] MEDS: MEMANTINE HCL 10 MG TABLET PO SCH (09:40)
[2018-07-31] MEDS: PANTOPRAZOLE 40 MG INJ IVP SCH (09:40)
[2018-07-31] MEDS: CIPROFLOXACIN 400mg IV 400 MG/200 ML BAG IV SCH (09:41)
[2018-07-31 11:15] VITALS: O2SAT 95
--- NOTE | 2018-07-31 13:17 | RAD REPORT ---
EXAM DESCRIPTION: RAD - Abdomen Single View - 07/31/2018 1:03 pm CLINICAL HISTORY: Bleeding, abdominal pain COMPARISON: CT study July 29 FINDINGS: Patient was brought down to the floor for requested barium enema examination. The procedur e was detail to the patient. However, it was clear the patient was not able to comprehend the procedu re to be performed. The barium enema examination was canceled until further notice. The cotton classer aide images for the barium enema show a nonspecific bowel gas pattern. No obstruction, free air or pneumatosis. Prominent bony degenerative changes are present in the spine. Dense arterial tree keith cifications are seen. There are numerous phleboliths present. No significant bony findings IMPRESSION: KUB imaging shows no bowel obstruction, free air or other emergent finding. Patient was unable to comprehend the examination to be performed. It was felt that the patient was un able to give informed consent.
[2018-07-31] MEDS ORDERED: metroNIDAZOLE 500 MG TABLET PO SCH (17:00)
[2018-07-31 19:41] VITALS: BP 170/76; TEMP 98.1
[2018-07-31] MEDS ORDERED: CIPROFLOXACIN HCL 500 MG TAB PO SCH (21:00)
[2018-08-01] MEDS ORDERED: PANTOPRAZOLE 40MG TABLET PO SCH (06:30)
--- NOTE | 2018-08-01 08:51 | DS ---
Date of Discharge: 07/31/2018 Procedures: Colonoscopy was canceled due to bad prep, barium enema; the patient did not tolerate. Admitting Diagnoses: 1.Influenza, acute. 2.Gastrointestinal bleed, likely lower source. 3.Alzheimer dementia without behavioral disturbance. 4.Diabetes mellitus type 2 without long-term use of insulin. 5.Obesity, body mass index 37.6. 6.Essential hypertension. Discharge Diagnoses: 1.Acute gastrointestinal bleed secondary to colitis. 2.Acute colitis of the rectosigmoid colon without abscess, improved with antibiotics. 3.Influenza, continue Tamiflu. 4.Alzheimer's dementia early-onset with behavioral disturbance. 5.Diabetes mellitus type 2 without long-term use of insulin with hyperglycemia, stable. 6.Essential hypertension, stable. 7.Obesity, body mass index 37.6. 8.History of blood clots, on anticoagulation. 9.Atrial fibrillation, chronic. 10.Generalized osteoarthritis. 11.Chronic obstructive pulmonary disease, emphysema. 12.Hypothyroidism. Hospital Course: The patient is a prison patient, 87-year-old, with severe dementia, who is ag itated, has been pulling out her lines, and uncooperative with testing, specifically the colon prep f or the colonoscopy. The patient was admitted for lower GI bleed and influenza infection. Her WBC co unt was normal. Hemoglobin and hematocrit were also normal. She was found to have some mild colitis on CT scan, and she was started on IV antibiotics and IV fluids. She was kept n.p.o. initially. Dr Divya Escudero with GI was consulted. The patient was unable to tolerate the prep due to her dementia, she was uncooperative; therefore, colonoscopy was canceled. NG tube was placed to do the prep that way; however, the patient repeatedly took out the NG tube as well. The patient was then scheduled for en gabriella, and she was unable to tolerate that procedure as well. The patient's daughter was contacted and she was unable to sit with the patient due to her commitment at her job. However, she did mention t hat regardless the patient does not recognize her own daughter and it would still be very difficult. The patient was then cleared for discharge from a GI standpoint as her hemoglobin did not have a sig nificant drop. She did not have any further bleeding. She will resume her anticoagulants due to his tory of clots and atrial fibrillation to prevent stroke. She will need an outpatient colonoscopy, an d to have her hemoglobin monitored closely for the next couple of weeks. Abdominal x-ray did not melo w any bowel obstruction. The patient was then cleared for discharge and was sent back to the nursing facility at [facility]. Condition: Stable. Medications: As per medication reconciliation list. Followup: 1.Follow up with primary care physician in 2 to 3 days. 2.Follow up with GI, Dr. Escudero in 2 weeks. 3.Have H and H repeated in a couple of days and monitor weekly until seen by GI. Diet: Knott. Activity: Fall precautions. Physical Examination: General: Awake, alert, disoriented, elderly female, obese. CV: S1, S2. Irregularly irregular. Peripheral pulses present. Respiratory: Moving air well bilaterally. Abdomen: Soft, nontender, nondistended. Positive bowel sounds. Extremities: No clubbing, cyanosis, or edema. Neurologic: Nonfocal. Speech is normal. /CODY Voice ID: [id number] Report ID: [id number]
[2018-08-01] MEDS ORDERED: HYDROCORTISONE ACETATE 25MG SUPP PR SCH (09:00)
== END 2018-07-31 20:35 | DRG 378 ==
LOC: ER 17:11 → ERHOLD 22:52 → 4TH 07-29 01:46
PROVIDERS: ADMIT Internal Medicine; ATTEND Family Medicine
DX: K92.2 Gastrointestinal hemorrhage, unspecified (principal); F02.81 Dementia in other diseases classified elsewhere, unspecified severity, with behavioral disturbance; K52.89 Other specified noninfective gastroenteritis and colitis; E03.9 Hypothyroidism, unspecified; I10 Essential (primary) hypertension; J44.9 Chronic obstructive pulmonary disease, unspecified; D69.6 Thrombocytopenia, unspecified; E83.42 Hypomagnesemia; E86.0 Dehydration; Z88.5 Allergy status to narcotic agent; Z88.0 Allergy status to penicillin; Z79.4 Long term (current) use of insulin; Z79.84 Long term (current) use of oral hypoglycemic drugs; K21.9 Gastro-esophageal reflux disease without esophagitis; F32.9 Major depressive disorder, single episode, unspecified; F41.9 Anxiety disorder, unspecified; Z86.718 Personal history of other venous thrombosis and embolism; Z79.01 Long term (current) use of anticoagulants; J11.1 Influenza due to unidentified influenza virus with other respiratory manifestations; E11.65 Type 2 diabetes mellitus with hyperglycemia; G30.0 Alzheimer's disease with early onset; E66.9 Obesity, unspecified; Z68.37 Body mass index [BMI] 37.0-37.9, adult; I48.2 Chronic atrial fibrillation; M15.9 Polyosteoarthritis, unspecified
CPT/HCPCS: 36415; 71045; 74018; 74177; 80048; 80076; 81003; 81015; 82962; 83735; 83880; 84132; 84484; 85025; 85610; 86850; 86900; 86901; 87804; 93005; 94760; 96361; 96365; 99285; C9113; J0744; J2765; J3475; J7030; Q9967

== ENCOUNTER 2019-04-07 09:46 | Inpatient (IN) | payer OTHER ==
[2019-04-07 10:34] LABS: Absolute Lymphocytes (CBC) 0.6 K/uL (0.7-4.9); Basophils % 0.3 % (0-1.3); Hematocrit 32.9 % (36.0-45.0); Lymphocytes % 14.9 % (15.3-44.8); MPV 10.1 fL (7.6-11.3); RBC Red Blood Cell Count 3.39 M/uL (3.86-4.86)
[2019-04-07 10:38] LABS: Protime INR 1.19
[2019-04-07 10:53] LABS: ALT/SGPT 15 U/L (12-78); AST/SGOT 7 U/L (15-37); Albumin 2.6 g/dL (3.4-5.0); Alkaline Phosphatase 83 U/L (45-117); BUN Blood Urea Nitrogen 30 mg/dL (7-18); Bicarbonate 35 mmol/L (21-32); Bilirubin Direct 0.1 mg/dL (0-0.2); Bilirubin Total 0.3 mg/dL (0.2-1.0); Creatine Phosphokinase 19 U/L (26-192); Glucose Level 109 mg/dL (74-106); Lipase 318 U/L (73-393); Potassium 4.3 mmol/L (3.5-5.1); Sodium Level 146 mmol/L (136-145); Troponin (Emerg Dept Use Only) < 0.02 ng/mL (0.0-0.045)
[2019-04-07 11:17] LABS: Anisocytosis SLIGHT; Blood Morphology Comment NOTED (NOT SEEN); Platelet Estimate DECR
[2019-04-07 11:18] LABS: Basophilic Stippling 1+
--- NOTE | 2019-04-07 11:26 | RAD REPORT ---
EXAM DESCRIPTION: RAD - Chest Single View - 04/07/2019 11:04 am CLINICAL HISTORY: Cough COMPARISON: July 28 TECHNIQUE: AP portable chest image was obtained 1049 hours . FINDINGS: Lung volumes are low. No peripheral mass or consolidation. Pleural effusions are evident. Vasculature is prominent. Cardiomegaly is present. No pneumothorax. Advanced bony degenerative change at the shoulder joint. No acute aortic findings suspected. IMPRESSION: Significant CHF/volume overload pattern. Pleural effusions.
--- NOTE | 2019-04-07 11:40 | ER ---
Nurse's Notes [facility] Name: Beata Mayer Age: 88 yrs Sex: Female : 1930 Arrival Date: 04/07/2019 Time: 09:48 Bed 7 Private MD: Diagnosis: Acute respiratory failure with hypoxia;Acute combined systolic (congestive) and diastolic (congestive) heart failure;Dehydration;Hypothermia;Urinary tract infection, site not specified Presentation: 04/07 09:49 Presenting complaint: EMS states: Pt from [facility], found by staff this morning w/ ph AMS and respiratory distress, pt hx of Alzheimer's, normally A\\T\\O x 1, only responsive to pain, productive cough noted, recently treated for pneumonia, finished abx 1 week ago, also has hx of CHF, HR and BP stable, Spo2 88% RA, improved on 4L NC, axillary temp 95.9. Transition of care: patient was received from another setting of care (long-term care facility), [facility]. Onset of symptoms was April 07, 2019. Risk Assessment: Do you want to hurt yourself or someone else? Patient reports no desire to harm self or others. Initial Sepsis Screen: Does the patient meet any 2 criteria? RR > 20 per min. Temp <36.0*C (96.8*F)) or > 38.3*C (100.9*F). Altered Mental Status. Yes Does the patient have a suspected source of infection? Yes: Productive cough/pneumonia. Care prior to arrival: IV initiated. 22 GA, in the left antecubital area, Glucose check: 115 Oxygen administered. via nasal cannula. 09:49 Method Of Arrival: EMS: [facility] ph 09:49 Acuity: KELBY 2 ph Historical: - Allergies: 09:57 Morphine; ph 09:57 PENICILLINS; ph 09:57 sertraline; ph - Home Meds: 11:06 Sandy-Tussin oral oral [Active]; Coreg 25 mg Oral tab 1 tab 2 times per day [Active]; ph GlycoLax 17 gram/dose Oral powd once daily [Active]; Depakote 125 mg Oral TbEC 4 tabs nightly [Active]; Depakote Sprinkles 125 mg Oral cpSP 2 caps every 12 hours [Active]; tramadol 50 mg Oral tab 1 tab every 4 hours [Active]; Lantus 100 unit/mL Sub-Q soln 18 unit daily [Active]; 14:03 amlodipine 5 mg tab 1 tab once daily [Active]; Pepcid 20 mg Oral tab 1 tab 2 times per ph day [Active]; Novolog 100 unit/mL Sub-Q soln sliding scale before meals [Active]; Acidophilus Oral chew [Active]; apixaban oral 5 mg oral 1 tab 2 times per day [Active]; [place] Thyroid 30 mg Oral tab daily [Active]; omeprazole 20 mg Oral cpDR 1 cap once daily [Active]; docusate sodium 100 mg Oral tab 1 tab once daily [Active]; Ventolin Rotahaler/Rotacaps Inhl every 6 hours [Active]; acetaminophen 325 mg Oral tab 2 tabs every 6 hours [Active]; - PMHx: 14:03 CHF; DVT; GI Bleed; UTI; Atrial Fib; Diabetes - IDDM; ph - PSHx: 14:03 Knee surgery; hip surgery; ph - Immunization history:: Adult Immunizations unknown. - Social history:: Smoking status: unknown. - Ebola Screening: : No symptoms or risks identified at this time. Screenin:59 Abuse screen: Denies threats or abuse. Denies injuries from another. Nutritional ph screening: No deficits noted. Tuberculosis screening: No symptoms or risk factors identified. Fall Risk No fall in past 12 months (0 pts). Secondary diagnosis (15 points) IV access (20 points). Ambulatory Aid- None/Bed Rest/Nurse Assist (0 pts). Gait- Weak (10 pts.). Mental Status- Oriented to own ability (0 pts). Total Caldera Fall Scale indicates High Risk Score (45 or more points). Fall prevention measures have been instituted. Side Rails Up X 2 Placed Close to Nursing Station Frequent Obs/Assessments Occuring Family Present and informed to notify staff if the need to leave the bedside As available patient and family educated on Fall Prevention Program and Strategies. Assessment: 09:57 Reassessment: EMILEE Ortez at bedside to speak w/ family. ph 10:00 General: Appears in no apparent distress. uncomfortable, obese, well groomed, Behavior ph is drowsy, listless, quiet. Pain: Unable to use pain scale. Patient is unresponsive. Neuro: Level of Consciousness is lethargic, listless, Oriented to none Reaction to noxious stimuli is withdrawal. Cardiovascular: Capillary refill is sluggish in bilateral fingers Rhythm is atrial fibrillation. Respiratory: Airway is patent Respiratory effort is unlabored, with retractions, shallow, Respiratory pattern is tachypnea Breath sounds are coarse in mediastinum Breath sounds with crackles bilaterally. Parent/caregiver reports the patient having cough that is labored breathing. GI: Abdomen is non-distended, obese, Abd is soft and non tender X 4 quads. Derm: Skin is fragile, is thin, Skin is pale, Skin temperature is cool. Musculoskeletal: Circulation, motion, and sensation intact. 10:08 Reassessment: Lab at bedside to draw blood. ph 11:00 Reassessment: Patient appears in no apparent distress at this time. Patient and/or ph family updated on plan of care and expected duration. Pain level reassessed. Pt remains A\\T\\O x 0, respirations labored, daughter at bedside reports that this is pt's baseline mental status, states, " They upped her Depakote at the [facility] because she was getting agitated and all she does is sleep all the time.". 12:00 Reassessment: Patient appears in no apparent distress at this time. No changes from ph previously documented assessment. Patient and/or family updated on plan of care and expected duration. Pain level reassessed. Criticore gomez inserted, core temp found to be 94.4, sunday hugger blanket placed to to pt, RT at bedside to draw ABG, hospitalist ordered Bi-Pap. 13:00 Reassessment: Patient appears in no apparent distress at this time. No changes from ph previously documented assessment. Patient and/or family updated on plan of care and expected duration. Pain level reassessed. Vital Signs: 09:54 BP 117 / 76; Pulse 67; Resp 24; Temp 95.8(A); Pulse Ox 88% on R/A; Weight 113.4 kg; ph 11:32 BP 114 / 62; Pulse 69; Resp 20; Temp 93.7(R); Pulse Ox 95% on 3 lpm NC; ph 12:31 BP 102 / 56; Pulse 66; Resp 24; Temp 94.4(C); Pulse Ox 96% on 3 lpm NC; ph 13:30 BP 99 / 57; Pulse 84; Resp 22; Temp 95.3; Pulse Ox 97% on 35% BiPAP; ph 14:25 BP 104 / 58; Pulse 79; Resp 20; Temp 95.5; Pulse Ox 97% on 35% BiPAP; ph Madison Coma Score: 14:10 Eye Response: spontaneous(4). Verbal Response: incomprehensible(2). Motor Response: ph withdraws from pain(4). Total: 10. ED Course: 09:48 Patient arrived in ED. ph 09:54 Cornelius Oretz PA is PHCP. jr8 09:54 Clifford Bentley MD is Attending Physician. jr8 09:54 Triage completed. ph 09:58 Arm band placed on Patient placed in an exam room, on oxygen, on monitor car operator, on ph pulse oximetry. 10:04 Patient has correct armband on for positive identification. Placed in gown. Bed in low ph position. Call light in reach. Side rails up X2. monitor car operator on. Pulse ox on. NIBP on. Door closed. Noise minimized. Warm blanket given. 10:06 Christi Loving, RN is Primary Nurse. ph 10:20 EKG done, by ED staff, reviewed by Cornelius JAIME. 3 11:04 Chest Single View XRAY In Process Unspecified. EDMS 11:31 Straight cath inserted, using sterile technique, 16 Fr. Specimen obtained. Returned ph jennifer urine. Patient tolerated well. Missed attempt(s): 22 gauge in right forearm. Bleeding controlled, band aid applied, catheter tip intact. Missed attempt(s): 24 gauge in right hand. Bleeding controlled, band aid applied, catheter tip intact. 11:38 nAia Nguyen MD is Hospitalizing Provider. jr8 11:45 Gomez cath inserted, using sterile technique, 16 Fr., by in, balloon inflated, to ph gravity drainage, returned jennifer urine. Patient tolerated well. Criticore Gomez inserted. 12:04 Missed attempt(s): 22 gauge in right upper arm. Bleeding controlled, band aid applied, ss catheter tip intact. 12:05 Inserted saline lock: 22 gauge in left hand, using aseptic technique. ph 14:30 No provider procedures requiring assistance completed. Patient admitted, IV remains in ph place. Administered Medications: 10:08 CANCELLED (Physician Discretion; Pt hx of CHF): NS 0.9% (30 ml/kg) 30 ml/kg IV at bolus ph once; Sepsis Protocol 12:10 Drug: D5-LR 1000 ml Route: IV; Rate: 50 ml/hr; Site: left hand; ph 14:30 Follow up: Response: No adverse reaction; IV Status: Infusion continued upon admission ph 12:10 Drug: Rocephin 1 grams Route: IV; Rate: calculated rate; Site: right hand; ph 12:30 Follow up: Response: No adverse reaction; IV Status: Completed infusion ph 12:15 Drug: Lasix 60 mg Route: IVP; Site: left hand; ph 14:00 Follow up: Response: No adverse reaction ph 12:40 Drug: Zithromax 500 mg Route: IVPB; Infused Over: 1 hrs; Site: left hand; ph 13:45 Follow up: Response: No adverse reaction; IV Status: Completed infusion ph Outcome: 11:39 Decision to Hospitalize by Provider. jrAlisha 14:37 Patient left the ED. 14:37 Admitted to Tele accompanied by nurse, via stretcher, with chart, Report called to [facility] 14:37 Condition: stable 14:37 Instructed on the need for admit. Signatures: Dispatcher [employer] Rachael Javier RN RN ss Roszak, Josh, PA [facility] Christi Loving RN RN Tiffanie Cullen [facility]
--- NOTE | 2019-04-07 11:40 | EDPHYS ---
Physician Documentation [facility] Name: Beata Mayer Age: 88 yrs Sex: Female : 1930 Arrival Date: 04/07/2019 Time: 09:48 Bed 7 Private MD: ED Physician Clifford Bentley HPI: 04/07 10:16 This 88 yrs old Female presents to ER via EMS with complaints of Altered jr8 Mental Status, Respiratory Distress. 10:16 The patient presents with decreased responsiveness. Onset: The symptoms/episode jr8 began/occurred today. Associated signs and symptoms: Pertinent positives: cough, not eating as much. Current symptoms: In the emergency department the patient's symptoms are unchanged from the initial presentation. Patient's baseline: Neuro: not alert. Pt child states she has baseline dementia and does not verbally communicate, will open eyes to eat and then close eyes typically, sleeps almost all day. care home staff states she has not been eating as much and had a bad cough that makes her seems like she is choking. Pt is requiring 02 to keep her sats up which is new and recently took abx for a pnuemonia. Historical: - Allergies: 09:57 Morphine; ph 09:57 PENICILLINS; ph 09:57 sertraline; ph - Home Meds: 11:06 Sandy-Tussin oral oral [Active]; Coreg 25 mg Oral tab 1 tab 2 times per day [Active]; ph GlycoLax 17 gram/dose Oral powd once daily [Active]; Depakote 125 mg Oral TbEC 4 tabs nightly [Active]; Depakote Sprinkles 125 mg Oral cpSP 2 caps every 12 hours [Active]; tramadol 50 mg Oral tab 1 tab every 4 hours [Active]; Lantus 100 unit/mL Sub-Q soln 18 unit daily [Active]; 14:03 amlodipine 5 mg tab 1 tab once daily [Active]; Pepcid 20 mg Oral tab 1 tab 2 times per ph day [Active]; Novolog 100 unit/mL Sub-Q soln sliding scale before meals [Active]; Acidophilus Oral chew [Active]; apixaban oral 5 mg oral 1 tab 2 times per day [Active]; [place] Thyroid 30 mg Oral tab daily [Active]; omeprazole 20 mg Oral cpDR 1 cap once daily [Active]; docusate sodium 100 mg Oral tab 1 tab once daily [Active]; Ventolin Rotahaler/Rotacaps Inhl every 6 hours [Active]; acetaminophen 325 mg Oral tab 2 tabs every 6 hours [Active]; - PMHx: 14:03 CHF; DVT; GI Bleed; UTI; Atrial Fib; Diabetes - IDDM; ph - PSHx: 14:03 Knee surgery; hip surgery; ph - Immunization history:: Adult Immunizations unknown. - Social history:: Smoking status: unknown. - Ebola Screening: : No symptoms or risks identified at this time. ROS: 10:18 Constitutional: jr8 10:18 Respiratory: Positive for cough, "sounds productive". 10:18 Unable to obtain ROS due to baseline dementia. Exam: 10:18 Constitutional: This is a well developed in no acute distress, eyes closed, open to jr8 verbal or painful stimulus Head/Face: Normocephalic, atraumatic. Eyes: Pupils equal round and reactive to light, extra-ocular motions intact. Lids and lashes normal. Conjunctiva and sclera are non-icteric and not injected. Cornea within normal limits. Periorbital areas with no swelling, redness, or edema. ENT: Mucous membranes moist. Chest/axilla: Normal chest wall appearance and motion. Nontender with no deformity. No lesions are appreciated. Cardiovascular: Regular rate and rhythm with a normal S1 and S2. No gallops, murmurs, or rubs. Normal PMI, no JVD. No pulse deficits. 10:18 Respiratory: the patient does not display signs of respiratory distress, Respirations: shallow respirations, that is moderate, Breath sounds: decreased breath sounds, that are mild. 10:18 Abdomen/GI: Inspection: abdomen appears normal, obese Bowel sounds: normal, Palpation: abdomen is soft and non-tender, in all quadrants. 10:18 Neuro: Orientation: unable to test, the patient has a history of dementia. 10:30 Cardiovascular: Edema: 2+ edema to level of left ankle, left foot, left toes, right jr8 ankle, right foot and right toes, pedal edema, that is moderate, ankle edema, that is moderate. Vital Signs: 09:54 BP 117 / 76; Pulse 67; Resp 24; Temp 95.8(A); Pulse Ox 88% on R/A; Weight 113.4 kg; ph 11:32 BP 114 / 62; Pulse 69; Resp 20; Temp 93.7(R); Pulse Ox 95% on 3 lpm NC; ph 12:31 BP 102 / 56; Pulse 66; Resp 24; Temp 94.4(C); Pulse Ox 96% on 3 lpm NC; ph 13:30 BP 99 / 57; Pulse 84; Resp 22; Temp 95.3; Pulse Ox 97% on 35% BiPAP; ph 14:25 BP 104 / 58; Pulse 79; Resp 20; Temp 95.5; Pulse Ox 97% on 35% BiPAP; ph [place] Coma Score: 14:10 Eye Response: spontaneous(4). Verbal Response: incomprehensible(2). Motor Response: ph withdraws from pain(4). Total: 10. MDM: 09:58 Patient medically screened. clifford 11:37 Data reviewed: vital signs, nurses notes, lab test result(s), EKG, radiologic studies, jr8 plain films. Data interpreted: Pulse oximetry: on room air is 88 %. Interpretation: hypoxia. Counseling: I had a detailed discussion with the patient and/or guardian regarding: the historical points, exam findings, and any diagnostic results supporting the discharge/admit diagnosis, lab results, radiology results, the need for further work-up and treatment in the hospital. 04/07 10:07 Order name: Basic Metabolic Panel ph 04/07 10:07 Order name: Blood Culture Adult (2) ph 04/07 10:07 Order name: CBC with Diff ph 04/07 10:07 Order name: Ckmb ph 04/07 10:07 Order name: CPK ph 04/07 10:07 Order name: Lactate; Complete Time: 10:56 ph 04/07 10:07 Order name: LFT's; Complete Time: 10:56 ph 04/07 10:07 Order name: Lipase; Complete Time: 10:56 ph 04/07 10:07 Order name: Procalcitonin; Complete Time: 12:48 ph 04/07 10:07 Order name: Protime (+inr); Complete Time: 10:56 ph 04/07 10:07 Order name: Ptt, Activated; Complete Time: 10:56 ph 04/07 10:07 Order name: Troponin (emerg Dept Use Only); Complete Time: 10:56 ph 04/07 10:07 Order name: Urine Microscopic Only; Complete Time: 12:48 ph 04/07 10:07 Order name: Depakote; Complete Time: 10:56 ph 04/07 10:07 Order name: Chest Single View XRAY; Complete Time: 11:28 ph 04/07 10:08 Order name: Basic Metabolic Panel; Complete Time: 10:56 EDMS 04/07 10:08 Order name: Blood Culture EDMS 04/07 10:08 Order name: CBC with Automated Diff EDMS 04/07 10:08 Order name: CKMB Creatine Kinase MB; Complete Time: 10:56 EDMS 04/07 10:08 Order name: Creatine Phosphokinase; Complete Time: 10:56 EDMS 04/07 11:18 Order name: Manual Differential EDMS 04/07 11:42 Order name: Urine Dipstick--Ancillary (enter results); Complete Time: 12:48 bd 04/07 12:05 Order name: ABG Arterial Blood Gas; Complete Time: 13:58 EDMS 04/07 12:06 Order name: Influenza Screen (A EDMS 04/07 12:09 Order name: Urine Culture EDMS 04/07 10:07 Order name: Cath; Complete Time: 11:33 ph 04/07 10:07 Order name: Accucheck; Complete Time: 10:33 ph 04/07 10:07 Order name: Cardiac monitoring; Complete Time: 10:25 ph 04/07 10:07 Order name: EKG - Nurse/Tech; Complete Time: 10:25 ph 04/07 10:07 Order name: IV Saline Lock - Large Bore; Complete Time: 14:05 ph 04/07 10:07 Order name: Labs collected and sent; Complete Time: 10:26 ph 04/07 10:07 Order name: O2 Per Protocol; Complete Time: 10:26 ph 04/07 10:07 Order name: O2 Sat Monitoring; Complete Time: 10:26 ph 04/07 10:07 Order name: Urine Dipstick-Ancillary (obtain specimen); Complete Time: 11:33 ph Administered Medications: 10:08 CANCELLED (Physician Discretion; Pt hx of CHF): NS 0.9% (30 ml/kg) 30 ml/kg IV at bolus ph once; Sepsis Protocol 12:10 Drug: D5-LR 1000 ml Route: IV; Rate: 50 ml/hr; Site: left hand; ph 14:30 Follow up: Response: No adverse reaction; IV Status: Infusion continued upon admission ph 12:10 Drug: Rocephin 1 grams Route: IV; Rate: calculated rate; Site: right hand; ph 12:30 Follow up: Response: No adverse reaction; IV Status: Completed infusion ph 12:15 Drug: Lasix 60 mg Route: IVP; Site: left hand; ph 14:00 Follow up: Response: No adverse reaction ph 12:40 Drug: Zithromax 500 mg Route: IVPB; Infused Over: 1 hrs; Site: left hand; ph 13:45 Follow up: Response: No adverse reaction; IV Status: Completed infusion ph Disposition: 04/08 07:25 Co-signature as Attending Physician, Clifford Bentley MD I agree with the assessment and clifford plan of care. Disposition: 04/07/19 11:39 Hospitalization ordered by Ania Nguyen for Inpatient Admission. Preliminary diagnosis are Acute respiratory failure with hypoxia, Acute combined systolic (congestive) and diastolic (congestive) heart failure, Dehydration, Hypothermia, Urinary tract infection, site not specified. - Bed requested for Telemetry/MedSurg (Inpatient). - Status is Inpatient Admission. ph - Condition is Fair. - Problem is new. - Symptoms have improved. UTI on Admission? Yes Signatures: Dispatcher [employer] EDMS Ekta Boland Corey, MD MD cha Roszak, Josh, PA PA jr8 Christi Loving RN RN ph Corrections: (The following items were deleted from the chart) 04/07 10:08 10:07 NS 0.9% (30 ml/kg) 30 ml/kg IV at bolus once; Sepsis Protocol ordered. ph ph 12:49 11:39 Hospitalization Ordered by Ania Nguyen MD for Inpatient Admission. Preliminary jr8 diagnosis is Acute respiratory failure with hypoxia; Acute combined systolic (congestive) and diastolic (congestive) heart failure; Dehydration; Hypothermia. Bed requested for Telemetry/MedSurg (Inpatient). Status is Inpatient Admission. Condition is Fair. Problem is new. Symptoms have improved. UTI on Admission? No. jr8 12:53 12:49 04/07/2019 11:39 Hospitalization Ordered by Ania Nguyen MD for Inpatient bd Admission. Preliminary diagnosis is Acute respiratory failure with hypoxia; Acute combined systolic (congestive) and diastolic (congestive) heart failure; Dehydration; Hypothermia; Urinary tract infection, site not specified. Bed requested for Telemetry/MedSurg (Inpatient). Status is Inpatient Admission. Condition is Fair. Problem is new. Symptoms have improved. UTI on Admission? Yes. jr8 14:37 12:53 04/07/2019 11:39 Hospitalization Ordered by Ania Nguyen MD for Inpatient Admission. Preliminary diagnosis is Acute respiratory failure with hypoxia; Acute combined systolic (congestive) and diastolic (congestive) heart failure; Dehydration; Hypothermia; Urinary tract infection, site not specified. Bed requested for Telemetry/MedSurg (Inpatient). Status is Inpatient Admission. Condition is Fair. Problem is new. Symptoms have improved. UTI on Admission? Yes. bd
[2019-04-07] MEDS ORDERED: ALBUMIN HUMAN 25% 100 ML IV ONE ×2 (11:59→14:00)
[2019-04-07 12:00] LABS: Urine Blood TRACE (NEG); Urine Glucose NEGATIVE (NEG); Urine Protein 2+ (NEG); Urine Specific Gravity >1.030 (1.005-1.030); Urine pH 5.5 (5.0-7.0)
[2019-04-07] MEDS ORDERED: D5LR 1,000 ML IV ONE (12:03)
[2019-04-07] MEDS ORDERED: CEFTRIAXONE/SWI 1gm 1 GM/10 ML SYR ONE (12:03)
[2019-04-07] MEDS ORDERED: FUROSEMIDE 100 MG/10 ML VIAL IV ONE (12:03)
[2019-04-07 12:08] LABS: Urine Bacteria >50 /HPF (<20); Urine Culture Reflex Order REFLEXED
[2019-04-07] MEDS ORDERED: AZITHROMYCIN IV 500 MG in NA CHLORIDE 0.9% 250 ML IVPB ONE (12:45)
--- NOTE | 2019-04-07 13:29 | P.HP ---
Certification for Inpatient Patient admitted to: Inpatient With expected LOS: >2 Midnights Patient will require the following post-hospital care: Care Home Practitioner: I am a practitioner with admitting privileges, knowledge of patient current condition, hospital course, and medical plan of care. Services: Services provided to patient in accordance with Admission requirements found in Title 42 Section 412.3 of the Code of Federal Regulations Patient History Date of Service: 04/08/19 History of Present Illness: 88 y/o F with PMHx of Dementia, CHF, RF, CAD who lives [facility] presents to the hospital with SOB and AMS. Pt was at the [facility] and was found to have difficulty breathing and thus was brought the to ER. Pt has been having some fever and chills before the SOB started. No other complains to offer. At baseline pt is nonverbal and [id number]. She does not recognize her daughter but will respond to her name. Associated Symptoms of +productive cough, Fever and Chills, increase urination as well Allergies Penicillins Allergy (Mild, Verified 06/26/18 17:21) Rash duloxetine HCl [From Cymbalta] Allergy (Verified 06/26/18 17:21) Unknown morphine Adverse Reaction (Severe, Verified 06/26/18 17:21) combative Fugdczt-Rib-Xsb Reductase Inhibitor Allergy (Uncoded 06/26/18 17:21) Unknown Home Medications: Acetaminophen [Tylenol*] 650 mg PO Q6HP PRN 07/29/18 Albuterol Inhaler [Ventolin Inhaler*] 2 puff IH Q6H PRN 07/29/18 Amlodipine Besylate 5 mg PO DAILY 07/29/18 Apixaban [Eliquis] 5 mg PO BID 07/29/18 Carvedilol [Coreg*] 25 mg PO BID 07/29/18 Divalproex Sodium [Depakote] 250 mg PO BID 07/29/18 Docusate Sodium 100 mg PO DAILY PRN 07/29/18 Famotidine [Pepcid*] 20 mg PO BID 07/29/18 Insulin Aspart [Novolog] See Protocol SQ ACHS 07/29/18 Insulin Glargine,Hum.rec.anlog [Lantus Solostar] 18 unit SQ DAILY 07/29/18 L. Acidophilus/Pectin, [place] [Acidophilus Capsule] 1 each PO DAILY 07/29/18 Omeprazole 20 mg PO DAILY 07/29/18 Thyroid Tab [[place] Thyroid*] 30 mg PO DAILY 07/29/18 Acetaminophen 650 mg PO Q6H PRN MDD 3 grams 04/07/19 Divalproex Sodium [Depakote Sprinkle] 500 mg PO BEDTIME 04/07/19 Guaifenesin [Sandy-Tussin] 5 ml PO Q8H PRN 04/07/19 Polyethylene Glycol 3350 [Miralax] 17 gm PO DAILY 04/07/19 Tramadol HCl [Ultram] 50 mg PO Q4H PRN 04/07/19 - Past Medical/Surgical History Diabetic: Yes -: esbl urine 2018 -: alzheimers -: arthritis -: copd -: dementia -: depression -: dm -: gerd -: htn -: hypthyroidism -: pneumonia -: blood clots x4 left 2018 -: bilat knee replacement -: right hip replacement - Family History Father -: Other (see notes) Notes: ra Mother -: Other (see notes) Notes: dementia, tia Brother -: Hypertension, Diabetes - Social History Alcohol use: No CD- Drugs: No Caffeine use: Yes Review of Systems 10-point ROS is otherwise unremarkable Physical Examination - Physical Exam General: Demented, Mild distress, Confused Neck: Supple, 2+ carotid pulse no bruit, No LAD, Without JVD or thyroid abnormality Respiratory: Normal air movement, Expiratory wheezes, Inspiratory wheezes Cardiovascular: Regular rate/rhythm, Normal S1 S2, Edema Gastrointestinal: Normal bowel sounds, Soft and benign, Non-distended, No tenderness Musculoskeletal: No tenderness, Swelling Neurological: Abnormal speech, Abnormal strength, Abnormal tone Lymphatics: No axilla or inguinal lymphadenopathy - Studies Laboratory Data (last 24 hrs) 04/07/19 10:17: WBC 3.9 L, Hgb 10.7 L, Hct 32.9 L, Plt Count 59 L 04/07/19 10:13: PT 14.0 H, INR 1.19, APTT 36.3 04/07/19 10:13: Sodium 146 H, Potassium 4.3, BUN 30 H, Creatinine 0.83, Glucose 109 H, Total Bilirubin 0.3, AST 7 L, ALT 15, Alkaline Phosphatase 83, Lipase 318 Assessment and Plan - Problems (Diagnosis) (1) Sepsis Current Visit: Yes Status: Acute Plan: Sepsis 2.2 to PNA vs UTI -Hypothermia noted -Now on Barehugger will continue -On IV rocephin and Azithromycin -Blood, urine and sputum culture pending -Influenza Culture pending as well -Pancytopenic 2.2 to infection most likely vs Bone marrow suppression Qualifiers: Sepsis type: sepsis due to unspecified organism Sepsis acute organ dysfunction status: with acute organ dysfunction Severe sepsis acute organ dysfunction type: acute respiratory failure Acute respiratory failure type: with hypercapnia Severe sepsis shock status: without septic shock Qualified Code(s): A41.9 - Sepsis, unspecified organism; R65.20 - Severe sepsis without septic shock; J96.02 - Acute respiratory failure with hypercapnia (2) Acute respiratory failure Current Visit: Yes Status: Acute Plan: Acute respiratory failure most likely multifactorial with COPD and CHF exacerbation with hypercapnia and hypoxia -ABGs consistent with hypercapnic respiratory failure -started on duonebs, steroids, BiPAP at this time -will wean off of BiPAP as tolerated -IV antibiotics for possible bacterial infection. -Influenza panel pending at this time sputum culture and blood culture also pending at this time Qualifiers: Respiratory failure complication: hypoxia and hypercapnia Qualified Code(s) : J96.01 - Acute respiratory failure with hypoxia; J96.02 - Acute respiratory failure with hypercapnia (3) COPD exacerbation Onset Date: 06/29/18 Current Visit: No Status: Acute Plan: COPD exacerbation -duo nebs, steroids, BiPAP at this time -sputum culture pending at this time -x-ray with volume overload -will monitor patient closely here in the hospital and follow up with culture (4) CHF exacerbation Onset Date: 06/29/18 Current Visit: No Status: Chronic Plan: CHF exacerbation at this time -echocardiogram in June of 2018 with EF of 53% -will start patient on IV Lasix at this time and monitor closely -x-ray with volume overload as well -patient does seem to have anasarca and thus will give albumin along with Lasix Qualifiers: Heart failure type: unspecified Qualified Code(s): I50.9 - Heart failure, unspecified (5) Anasarca Current Visit: Yes Status: Acute Plan: Generalized anasarca -patient with generalized anasarca -Albumin 25% 25 mg x1 followed with IV Lasix (6) Dementia Onset Date: 06/29/18 Current Visit: No Status: Chronic Plan: Will monitor closely here in the hospital Qualifiers: Dementia type: Alzheimer's disease Alzheimer's disease onset: early-onset Dementia behavioral disturbance: without behavioral disturbance Qualified Code(s): G30.0 - Alzheimer's disease with early onset; F02.80 - Dementia in other diseases classified elsewhere without behavioral disturbance (7) Diabetes Onset Date: 06/29/18 Current Visit: No Status: Chronic Plan: Insulin sliding scale and Accu-Cheks Qualifiers: Diabetes mellitus type: type 2 Diabetes mellitus correction insulin use: without correction use Diabetes mellitus complication status: without complication Qualified Code(s): E11.9 - Type 2 diabetes mellitus without complications (8) HTN (hypertension) Onset Date: 06/29/18 Current Visit: No Status: Chronic Plan: Restart on home medication Qualifiers: Hypertension type: essential hypertension Qualified Code(s): I10 - Essential (primary) hypertension - Plan Patient will be admitted to med surge floor for acute respiratory failure - Advance Directives Does patient have a Living Will: No Does patient have a Durable POA for Healthcare: Yes
[2019-04-07] MEDS ORDERED: ALBUTEROL 2.5 MG/3 ML NEB SOL NEB PRN (13:30)
[2019-04-07] MEDS ORDERED: IPRATROPIUM BROM 0.5MG/2.5ML NEB PRN (13:30)
[2019-04-07 13:40] LABS: Blood O2 Saturation 92.4 % (92-98.5)
[2019-04-07 13:41] LABS: Arterial Blood Carboxyhemoglob 0.9 % (0-1.5); Blood Gas Oxyhemoglobin 90.8 % (94-97)
[2019-04-07] MEDS ORDERED: ONDANSETRON 4 MG/2 ML VIAL IV PRN (14:27)
[2019-04-07] MEDS: ENOXAPARIN 40 MG/0.4 ML SQ SCH (15:20)
[2019-04-07] MEDS: FUROSEMIDE 40 MG/4 ML VIAL IV SCH (15:52)
--- NOTE | 2019-04-07 15:55 | EKG ---
Test Date: 2019-04-07 Test Time: 10:18:09 Conveyor Operator: MISAEL MEASUREMENT RESULTS: Intervals: Rate: 55 [place]: QRSD: 80 QT: 424 QTc: 405 [place]: P: TX: QRS: 53 T: 139 INTERPRETIVE STATEMENTS: Atrial fibrillation with slow ventricular response Low voltage QRS Cannot rule out Anteroseptal infarct, age undetermined Abnormal ECG Compared to ECG 07/28/2018 18:26:15 Low QRS voltage now present Myocardial infarct finding still present Electronically Signed On 04-07-19 15:54:35 CDT by Guanakito Roa
[2019-04-07] MEDS: INSULIN -REGULAR HUMAN 50 UNIT/0.5 ML ML SQ SCH ×2 (16:04→20:32)
[2019-04-07 16:35] LABS: Urine Appearance CLEAR; Urine Bilirubin NEGATIVE (NEG); Urine Blood TRACE (NEG); Urine Color YELLOW; Urine Glucose NEGATIVE (NEG); Urine Protein NEGATIVE (NEG); Urine Specific Gravity <=1.005 (1.005-1.030); Urine Urobilinogen 0.2 mg/dL (0.2-1.0)
[2019-04-07 16:38] LABS: Urine Microscopic Reflex ORDER UMIC
[2019-04-07 16:51] LABS: Urine Bacteria <20 /HPF (<20); Urine Culture Reflex Order REFLEXED; Urine Mucus 2+ /HPF (NONE SEEN)
[2019-04-07] MEDS ORDERED: SODIUM CHLORIDE 0.9% 10ML INJ IV PRN (20:34)
[2019-04-07] MEDS ORDERED: predniSONE 20 MG TAB PO SCH (21:00)
[2019-04-07] MEDS: D50W 25 GM/50 ML SYRINGE IV PRN (23:04)
[2019-04-08] MEDS: D50W 25 GM/50 ML SYRINGE IV PRN (00:28)
[2019-04-08] MEDS: METHYLPREDNISOLONE 40 MG INJ IV SCH ×3 (00:32→17:04)
[2019-04-08] MEDS: INSULIN -REGULAR HUMAN 50 UNIT/0.5 ML ML SQ SCH ×4 (07:30→20:28)
[2019-04-08] MEDS: CEFTRIAXONE/SWI 1gm 1 GM/10 ML SYR IV SCH (08:43)
[2019-04-08] MEDS: ENOXAPARIN 40 MG/0.4 ML SQ SCH (08:43)
[2019-04-08] MEDS: THIAMINE 200 MG/2 ML INJ IVP SCH (08:43)
[2019-04-08] MEDS: FUROSEMIDE 40 MG/4 ML VIAL IV SCH ×2 (08:44→17:03)
[2019-04-08] MEDS ORDERED: PANTOPRAZOLE 40 MG INJ IVP SCH (09:00)
[2019-04-08 11:56] LABS: Absolute Lymphocytes (CBC) 0.3 K/uL (0.7-4.9); Basophils % 0.2 % (0-1.3); Hematocrit 32.6 % (36.0-45.0); Lymphocytes % 9.7 % (15.3-44.8); MPV 10.1 fL (7.6-11.3); RBC Red Blood Cell Count 3.53 M/uL (3.86-4.86)
[2019-04-08 12:06] LABS: Potassium 4.1 mmol/L (3.5-5.1)
[2019-04-08 12:07] LABS: Albumin 2.7 g/dL (3.4-5.0); Bilirubin Total 0.4 mg/dL (0.2-1.0); Protein, Total 6.2 g/dL (6.4-8.2)
--- NOTE | 2019-04-08 12:30 | ECHO ---
HEIGHT: 5 ft 2 in WEIGHT: 254 lb 8 oz DATE OF STUDY: 04/08/[address]: Chance Salazar MD 2-DIMENSIONAL: YES M.MODE: YES DOPPLER: YES COLOR FLOW: YES TDS: YES PORTABLE: NO DEFINITY: NO BUBBLE STUDY: NO DIAGNOSIS: CONGESTIVE HEART FAILURE CARDIAC HISTORY: CATHERIZATION: NO SURGERY: NO PROSTHETIC VALVE: NO PACEMAKER: NO MEASUREMENTS (cm) DIASTOLIC (NORMALS) SYSTOLIC (NORMALS) IVSd 1.3 (0.6-1.2) LA Diam 3.9 (1.9-4.0) LVEF 67% LVIDd 4.1 (3.5-5.7) LVIDs 2.6 (2.0-3.5) %FS 37% LVPWd 1.2 (0.6-1.2) Ao Diam 3.3 (2.0-3.7) 2 DIMENSIONAL ASSESSMENT: RIGHT ATRIUM: NORMAL LEFT ATRIUM: NORMAL RIGHT VENTRICLE: NORMAL LEFT VENTRICLE: NORMAL TRICUSPID VALVE: NORMAL MITRAL VALVE: MITRAL ANNULAR CALCIFICATION PULMONIC VALVE: NORMAL AORTIC VALVE: NORMAL PERICARDIAL EFFUSION: NONE AORTIC ROOT: NORMAL LEFT VENTRICULAR WALL MOTION: DECREASED LEFT VENTRICULAR COMPLAINCE NORMAL EJECTION FRACTION. DOPPLER/COLOR FLOW: MILD TRICUSPID REGURGITATION. COMMENTS: TECHNICALLY DIFFICULT STUDY. MITRAL ANNULAR CALCIFICATION. MILD TRICUSPID REGURGITATION NORMAL RIGHT VENTRICULAR SYSTOLIC PRESSURE. DECREASED LEFT VENTRICULAR COMPLIANCE. NORMAL EJECTION FRACTION. TECHNOLOGIST: FARAZ BALBUENA
--- NOTE | 2019-04-08 13:13 | P.CNS ---
Date of Consult: 04/08/19 Reason for Consult: Respiratory failure Chief Complaint: Respiratory failure unresponsive History of Present Illness: Patient is 88 years of age admitted with unresponsiveness respiratory failure history obtained from daughter patient has end-stage dementia she has become progressively worse in the last 2 years is not able to recognize her daughter applicator sprayer ice to eat no history of any respiratory complaints patient was hypercarbic acidotic on admission not able to tolerate BiPAP no prior history of obstructive airways disease never smoked years ago she was looking after herself and problem with lower extremity edema Allergies Penicillins Allergy (Mild, Verified 06/26/18 17:21) Rash duloxetine HCl [From Cymbalta] Allergy (Verified 06/26/18 17:21) Unknown morphine Adverse Reaction (Severe, Verified 06/26/18 17:) combative Dgfqixg-Xta-Hqk Reductase Inhibitor Allergy (Uncoded 06/26/18 17:) Unknown Home Medications: Acetaminophen [Tylenol*] 650 mg PO Q6HP PRN 07/29/18 Albuterol Inhaler [Ventolin Inhaler*] 2 puff IH Q6H PRN 07/29/18 Amlodipine Besylate 5 mg PO DAILY 07/29/18 Apixaban [Eliquis] 5 mg PO BID 07/29/18 Carvedilol [Coreg*] 25 mg PO BID 07/29/18 Divalproex Sodium [Depakote] 250 mg PO BID 07/29/18 Docusate Sodium 100 mg PO DAILY PRN 07/29/18 Famotidine [Pepcid*] 20 mg PO BID 07/29/18 Insulin Aspart [Novolog] See Protocol SQ ACHS 07/29/18 Insulin Glargine,Hum.rec.anlog [Lantus Solostar] 18 unit SQ DAILY 07/29/18 L. Acidophilus/Pectin, [place] [Acidophilus Capsule] 1 each PO DAILY 07/29/18 Omeprazole 20 mg PO DAILY 07/29/18 Thyroid Tab [[place] Thyroid*] 30 mg PO DAILY 07/29/18 Acetaminophen 650 mg PO Q6H PRN MDD 3 grams 04/07/19 Divalproex Sodium [Depakote Sprinkle] 500 mg PO BEDTIME 04/07/19 Guaifenesin [Sandy-Tussin] 5 ml PO Q8H PRN 10/30/19 Polyethylene Glycol 3350 [Miralax] 17 gm PO DAILY 04/07/19 Tramadol HCl [Ultram] 50 mg PO Q4H PRN 04/07/19 - Past Medical/Surgical History Diabetic: Yes -: esbl urine 2018 -: alzheimers -: arthritis -: copd -: dementia -: depression -: dm -: gerd -: htn -: hypthyroidism -: pneumonia -: blood clots x4 left 2018 -: bilat knee replacement -: right hip replacement - Family History Father Medical History: Other (see notes) Notes: ra Mother Medical History: Other (see notes) Notes: dementia, tia Brother Medical History: Hypertension, Diabetes - Social History Smoking Status: Unknown if ever smoked Alcohol use: No CD- Drugs: No Caffeine use: Yes Place of Residence: Longterm Review of Systems is unable to be obtained Physical Examination Temp Pulse Resp BP Pulse Ox 97.4 F 72 14 158/62 H 96 04/08/19 04:00 04/08/19 08:44 04/08/19 04:00 04/08/19 08:44 04/08/19 04:00 General: Unresponsive Neck: Supple Respiratory: Clear to auscultation bilaterally Cardiovascular: Normal S1 S2, Edema Gastrointestinal: Normal bowel sounds, Soft and benign Musculoskeletal: No clubbing, No swelling - Problems (1) Respiratory failure Current Visit: Yes Status: Acute Plan: Patient is 88 years of age admitted with the respiratory failure hypercapnia suspect is acute on chronic patient is neutropenic mildly anemic pro calcitonin level is negative cultures are also negative chest x-ray abnormal cardiomegaly and not exclude pneumonia or heart failure echocardiogram shows a decrease in compliance I discuss with the daughter problem prognosis is very poor patient is not tolerating BiPAP due to significance advance in her dementia I have discussed with the patient's daughter regarding withdrawal of care and referral to hospice care so far cultures are negative patient's own requiring 35% oxygen continue with bronchodilators is a mention of COPD patient is anti coagulated also on steroids and diuretics Qualifiers: Chronicity: acute on chronic
[2019-04-08] MEDS ORDERED: HALOPERIDOL LACT 5 MG/ML INJ IV PRN (13:14)
[2019-04-08] MEDS: ARFORMOTEROL TARTRATE 15 MCG/2 ML VIAL.NEB NEB SCH ×2 (13:16→19:35)
--- NOTE | 2019-04-08 13:22 | P.PN ---
Subjective Date of Service: 04/08/19 Chief Complaint: Respiratory failure unresponsive Subjective: No new changes, C/O voiced (Family at bedside. DW about hospice. Agreeable but would like to wait for another sister who will be here vipul AM), NPO, Demented Review of Systems 10-point ROS is otherwise unremarkable Physical Examination - Vital Signs Temperature: 97.4 F Blood Pressure: 158/62 Pulse: 72 Respirations: 14 Pulse Ox (%): 96 - Physical Exam General: Demented, Mild distress, Confused Neck: Supple, JVD distended Respiratory: Normal air movement, Crackles/rales, Rhonchi/gurgles Cardiovascular: Regular rate/rhythm, Normal S1 S2 Gastrointestinal: Normal bowel sounds, Soft and benign, Non-distended, No tenderness Musculoskeletal: No tenderness Integumentary: No rashes Neurological: Abnormal speech, Abnormal strength, Abnormal tone, Abnormal affect Lymphatics: No axilla or inguinal lymphadenopathy - Studies Medications List Reviewed: Yes Assessment And Plan - Current Problems (Diagnosis) (1) Sepsis Current Visit: Yes Status: Acute Plan: Sepsis 2.2 to PNA vs UTI -Hypothermia Now resolved -On IV rocephin and Azithromycin -Blood, urine and sputum culture pending at this time -Influenza Culture negative -Pancytopenic 2.2 to infection most likely vs Bone marrow suppression -Will Repeat CBC, CMP if family agreeable Qualifiers: Qualified Code(s): A41.9 - Sepsis, unspecified organism; R65.20 - Severe sepsis without septic shock; J96.02 - Acute respiratory failure with hypercapnia (2) Acute respiratory failure Current Visit: Yes Status: Acute Plan: Acute respiratory failure most likely multifactorial with COPD and CHF exacerbation with hypercapnia and hypoxia -ABGs consistent with hypercapnic respiratory failure -started on duonebs, steroids, BiPAP at this time -will wean off of BiPAP as tolerated -IV antibiotics for possible bacterial infection. -Influenza panel negative, sputum culture and blood culture pending at this time Qualifiers: Qualified Code(s): J96.01 - Acute respiratory failure with hypoxia; J96.02 - Acute respiratory failure with hypercapnia (3) COPD exacerbation Onset Date: 06/29/18 Current Visit: No Status: Acute Plan: COPD exacerbation -duo nebs, steroids, BiPAP at this time -sputum culture pending at this time -x-ray with volume overload -will monitor patient closely here in the hospital and follow up with culture (4) CHF exacerbation Onset Date: 06/29/18 Current Visit: No Status: Chronic Plan: CHF exacerbation at this time -echocardiogram in June of 2018 with EF of 53% -will start patient on IV Lasix at this time and monitor closely -x-ray with volume overload as well -patient does seem to have anasarca and thus will give albumin along with Lasix Qualifiers: Qualified Code(s): I50.9 - Heart failure, unspecified (5) Anasarca Current Visit: Yes Status: Acute Plan: Generalized anasarca -patient with generalized anasarca -Albumin 25% 25 mg x1 followed with IV Lasix on 04/07/2019 (6) Dementia Onset Date: 06/29/18 Current Visit: No Status: Chronic Plan: Will monitor closely here in the hospital. At baseline currently Qualifiers: Qualified Code(s): G30.0 - Alzheimer's disease with early onset; F02.80 - Dementia in other diseases classified elsewhere without behavioral disturbance (7) Diabetes Onset Date: 06/29/18 Current Visit: No Status: Chronic Plan: Insulin sliding scale and Accu-Cheks Qualifiers: Qualified Code(s): E11.9 - Type 2 diabetes mellitus without complications (8) HTN (hypertension) Onset Date: 06/29/18 Current Visit: No Status: Chronic Plan: Restart on home medication Qualifiers: Qualified Code(s): I10 - Essential (primary) hypertension - Plan Pt family deciding on Hospice at this time. Pt is DNR/DNI Discharge Plan: Long Term Plan to discharge in: 48 Hours - Code Status/Comfort Care Code Status Assessed: Yes Critical Care: No
[2019-04-08] MEDS: IPRATROPIUM BROM 0.5MG/2.5ML NEB SCH ×2 (13:50→19:35)
--- NOTE | 2019-04-08 19:58 | CON ---
Date of Consultation: 04/08/[address] Nguyen on 04/07/2019. I saw the patient on 04/08/2019. Reason For Consultation: Acute respiratory failure and altered mental status. History Of Present Illness: Ms. Mayer is an 88 years old. She has a history of CHF, DVT, GI bleed, UTI, atrial fibrillation, diabetes. She is a do not resuscitate. She has chronic atrial fibrillatio n, not on anticoagulation because of history of GI bleed and her age and overall mental status. She came in with respiratory failure, altered mental status. No chest pain reported. No syncope. No pa lpitation. Allergies: STATIN, PENICILLIN, AND MORPHINE. Medications: Insulin, Coreg, and Depakote. Review of Systems: Negative. Social History: Negative. Family History: Noncontributory. Physical Examination: General: Mrs. Mayer was obtunded, almost unresponsive. She seemed to be in moderate respiratory dis tress. Vital Signs: Stable. She was afebrile. She was in atrial fibrillation at a rate of 55. She was on CPAP, BiPAP with adequate O2 saturation. HEENT: Negative. Neck: Supple with no bruit. Chest: Wheezing on expiration as well as rales bilaterally. Cardiac: Atrial fibrillation. No murmurs, gallops, or rubs. Abdomen: Obese, but benign. Extremities: 1+ edema. Diagnostic Data: Chest x-ray shows CHF. EKG shows atrial fibrillation, rate of 55, pCO2 was 90, pO2 was 72, pH was 7.22. Echocardiogram in June of 2018 was normal. Platelet count was 59,000. Impression And Plan: 1.Acute respiratory failure, probably combination of chronic obstructive pulmonary disease and conge stive heart failure. She is on CPAP, BiPAP, inhalers, antibiotics, Lovenox, and Lasix. The patient has very poor prognosis. She has severe CO2 retention. Pulmonary consultation is suggested. Echoca rdiogram is pending. 2.History of congestive heart failure, probably diastolic. 3.Chronic atrial fibrillation, rate controlled. Not on anticoagulation because of history of gastro intestinal bleed. The patient also is diabetic. Ms. Mayer is a do not resuscitate. NB/MODL Voice ID: [id number] Report ID: [id number]
[2019-04-09] MEDS: METHYLPREDNISOLONE 40 MG INJ IV SCH ×2 (00:55→08:42)
[2019-04-09] MEDS: IPRATROPIUM BROM 0.5MG/2.5ML NEB SCH ×2 (01:13→07:37)
[2019-04-09 05:40] LABS: Absolute Lymphocytes (CBC) 0.4 K/uL (0.7-4.9); Basophils % 0.1 % (0-1.3); Hematocrit 33.4 % (36.0-45.0); Lymphocytes % 6.3 % (15.3-44.8); MPV 10.1 fL (7.6-11.3); RBC Red Blood Cell Count 3.59 M/uL (3.86-4.86)
[2019-04-09 06:05] LABS: Albumin 2.9 g/dL (3.4-5.0); Bilirubin Total 0.5 mg/dL (0.2-1.0); Phosphorus 3.1 mg/dL (2.5-4.9); Protein, Total 6.4 g/dL (6.4-8.2)
[2019-04-09] MEDS: INSULIN -REGULAR HUMAN 50 UNIT/0.5 ML ML SQ SCH ×3 (07:30→16:23)
[2019-04-09] MEDS: ARFORMOTEROL TARTRATE 15 MCG/2 ML VIAL.NEB NEB SCH (07:37)
[2019-04-09] MEDS: FUROSEMIDE 40 MG/4 ML VIAL IV SCH (08:42)
[2019-04-09] MEDS: THIAMINE 200 MG/2 ML INJ IVP SCH (08:42)
[2019-04-09] MEDS: ENOXAPARIN 40 MG/0.4 ML SQ SCH (08:42)
[2019-04-09] MEDS: CEFTRIAXONE/SWI 1gm 1 GM/10 ML SYR IV SCH (08:43)
[2019-04-09] MEDS ORDERED: Magnesium Sulfate 2gm IVPB 2 G/50 ML BAG IV ONE (09:00)
[2019-04-09 09:31] VITALS: BMI 43.6
--- NOTE | 2019-04-09 09:42 | P.PN ---
Subjective Date of Service: 04/09/19 Primary Care Provider: [facility] Chief Complaint: Respiratory failure unresponsive Subjective: Demented (Patient resting in bed. Patient with severe in stage dementia. Patient does not appear in any respiratory distress.) Physical Examination - Vital Signs Temperature: 98.7 F Blood Pressure: 157/77 Pulse: 77 Respirations: 26 Pulse Ox (%): 93 - Physical Exam General: Alert, Demented (Severe dementia), Confused HEENT: Atraumatic Neck: Supple Respiratory: Diminished (Bilateral) Cardiovascular: Irregular heart rate/rhythm (Atrial fibrillation, rate controlled) Gastrointestinal: Normal bowel sounds, No masses, No rebound, No guarding Integumentary: No warmth, No cyanosis Neurological: Dementia - Studies Microbiology Data (last 24 hrs): 04/07/19 11:25 Clean Catch Urine [place] Count - Final BETWEEN 10,000 & 100,000 CFU/ML 04/07/19 11:25 Clean Catch Urine - Final Escherichia Coli Medications List Reviewed: Yes Assessment & Plan Discharge Plan: Skilled Nursing Plan to discharge in: 24 Hours - Code Status/Comfort Care Code Status Assessed: Yes (Patient is do not resuscitate. Family leaning towards hospice) Physician Review Additional Text: Impression: Sepsis secondary to UTI, urine culture positive for E coli. Acute on chronic respiratory failure secondary to COPD exacerbation with hypoxia /hypercapnia and acute on chronic diastolic CHF Diabetes mellitus type 2 insulin dependent Atrial fibrillation not on chronic anti coagulation therapy Hypertension Hypothyroidism GERD End-stage dementia Anasarca secondary to CHF Anemia of chronic disease Plan: Sepsis secondary to UTI, urine culture positive for E coli.: Blood cultures negative. Urine culture positive for E coli. Will transition to oral doxycycline. Patient will need a course of 7 days. There has been discussion of patient returning to retirement with hospice. Will discuss with family to readdress. Patient currently do not resuscitate. If family agrees with hospice then planned for discharge to retirement with hospice. Acute on chronic respiratory failure secondary to COPD exacerbation with hypoxia /hypercapnia and acute on chronic diastolic CHF: Her breathing has significantly improved. Will transition from IV Solu-Medrol to oral steroid taper. Patient stable this time. No respiratory distress noted at this time. Continue oxygen to maintain sats above 90%. Will transition from IV Lasix to oral. Continue 1500 cc per day fluid restriction. Medications reviewed and adjusted. Continue to monitor COPD/CHF continue with above plan of care as patient will likely return to retirement with hospice. Diabetes mellitus type 2 insulin dependent: Patient stable off her basal insulin. Continue sliding scale and monitor Accu-Cheks. Hypertension: Restart blood pressure medication-carvedilol but at a lower dose. Continue to hold Norvasc. Will monitor and adjust appropriately. End-stage dementia: Patient with end-stage severe dementia. Restart Depakote. Continue with above plan of care. Likely back to retirement with hospice at discharge. Anticipate discharge as early as today. Will discuss with family. Anasarca secondary to CHF: Continue with diuresis. IV Lasix adjusted to oral. Hypothyroidism: Restart medication-[place] thyroid. GERD: Restart Pepcid Atrial fibrillation not on chronic anti coagulation therapy: Patient with AFib but rate controlled. Restart carvedilol for rate control. Will recommend no further use of chronic anti coagulation therapy due to risk of fall and bleeding. Patient previously on Eliquis. Anemia of chronic disease: Will monitor closely. Time Spent Managing Pts Care (In Minutes): 55
[2019-04-09] MEDS ORDERED: IPRATROPIUM BROM 0.5MG/2.5ML NEB PRN (09:45)
[2019-04-09] MEDS ORDERED: DOCUSATE NA 100 MG CAP PO PRN (09:46)
[2019-04-09 10:21] VITALS: O2SAT 98
--- NOTE | 2019-04-09 13:57 | P.PN ---
Subjective Date of Service: 04/16/19 Primary Care Provider: [facility] Chief Complaint: Respiratory failure Subjective: Improving (Patient is doing much better she is more alert responsive cooperative eating and drinking Suad is been a significant improvement) Review of Systems is unable to be obtained Physical Examination - Vital Signs Temperature: 98.1 F Blood Pressure: 193/82 Pulse: 86 Respirations: 24 Pulse Ox (%): 96 - Physical Exam General: Alert HEENT: Atraumatic Neck: Supple Respiratory: Clear to auscultation bilaterally Cardiovascular: No edema, Normal pulses - Studies Microbiology Data (last 24 hrs): 04/07/19 11:25 Clean Catch Urine [place] Count - Final BETWEEN 10,000 & 100,000 CFU/ML 04/07/19 11:25 Clean Catch Urine - Final Escherichia Coli Medications List Reviewed: Yes Assessment & Plan - Problems (Diagnosis) (1) Respiratory failure Status: Acute Plan: Patient is 88 years of age admitted with respiratory failure hypoxemia hypercarbia the diastolic dysfunction pulmonary edema has some volume overload has improved significantly I suggest discharging her on some spironolactone 25 mg twice a day with Lasix 20 mg once a day patient refused BiPAP as E. coli in the urine vital signs stable spironolactone was also help lower her blood pressure agree with bronchodilators going back to custodial with hospice care Qualifiers: Chronicity: acute on chronic Physician Review Additional Text: I
--- NOTE | 2019-04-09 15:05 | P.DS ---
Admission Date: 04/07/19 Discharge Date: 04/09/19 Primary Care Provider: [facility] Disposition: TRANSFER TO [facility] Discharge Condition: GOOD Reason for Admission: Respiratory failure Consultations: Pulmonary-Dr. Arnold Cardiology-Dr. Salazar Procedures: CXR: IMPRESSION: Significant CHF/volume overload pattern. Pleural effusions. ECHO: EF 67% LEFT VENTRICULAR WALL MOTION: DECREASED LEFT VENTRICULAR COMPLAINCE NORMAL EJECTION FRACTION. DOPPLER/COLOR FLOW: MILD TRICUSPID REGURGITATION. COMMENTS: TECHNICALLY DIFFICULT STUDY. MITRAL ANNULAR CALCIFICATION. MILD TRICUSPID REGURGITATION NORMAL RIGHT VENTRICULAR SYSTOLIC PRESSURE. DECREASED LEFT VENTRICULAR COMPLIANCE. NORMAL EJECTION FRACTION. Medical Problem List: Toxic encephalopathy secondary to UTI with sepsis, urine culture positive for E. coli Acute on chronic respiratory failure secondary to COPD exacerbation with hypoxia /hypercapnia and acute on chronic diastolic CHF Diabetes mellitus type 2 insulin-dependent Hypertension Atrial fibrillation not on chronic anti coagulation therapy Hypothyroidism Dementia GERD Pancytopenia improved likely from sepsis Brief History of Present Illness: 89-year-old female with history of dementia, CHF, chronic renal failure, CAD and atrial fibrillation. Patient presented with shortness of breath. Patient found to have difficulty breathing. Patient also has some fever and chills. Patient was admitted for further evaluation. Hospital Course: Patient presented with shortness of breath secondary to acute on chronic respiratory failure with sepsis. Toxic encephalopathy was noted. Patient was treated in the course of her stay. Patient found have UTI with urine culture positive for E. coli. Patient also found to have acute on chronic respiratory failure secondary to COPD exacerbation with hypoxia/hypercapnia and acute on chronic diastolic CHF. During the course of her stay patient was treated and seen by pulmonology and cardiology. Patient required diuresis and COPD treatment. Her condition slightly improved. Chronic overall condition was poor. Discussion concerning long-term care address. Family desired hospice at discharge. At discharge his without any significant shortness of breath. Patient will return to the longterm with hospice. For her UTI she will continue with doxycycline 100 mg 1 pill twice daily for 7 days. Recommend to recheck urinalysis after that time to monitor resolution. Concerning her CHF she will continue with a 1500 cc per day fluid restriction and low-salt diet. Case discussed at length with pulmonology prior to discharge. Patient will continue with Lasix 20 mg daily and Aldactone 25 mg 1 pill twice daily. For her COPD patient will continue with oxygen to maintain sats above 93%. Patient will continue with COPD medication-Brovana 1 unit dose twice daily and 1 unit dose 3 times a day as needed for shortness of breath. Further adjustment in medication may be done by hospice. Consider repeat chest x-ray in 2-4 weeks to monitor stability. Patient with Diabetes mellitus type 2 insulin dependent. Blood sugar remained stable during the course for stay. At discharge she will continue with her prior regimen of insulin therapy. Recommend blood sugar to remain less than 140 fasting and less than 200 after meals. Further adjustment can be done by hospice. Patient with history of atrial fibrillation and hypertension. Medications were adjusted during her stay. Due to her sepsis patient required lower dose of blood pressure medication. At discharge she will continue with carvedilol 6.25 mg 1 pill twice daily. Recommend to monitor blood pressures daily. Recommend to maintain blood pressures less than 150/80. Further adjustment in carvedilol may be required if blood pressure continues to remain elevated. At discharge Norvasc has been discontinued as well. This may need to be restarted if blood pressure remains elevated. At discharge will recommend no further use of chronic anti coagulation therapy-Eliquis due to risk of fall and bleeding. Patient with hypothyroidism. At discharge she will continue with [place] thyroid 30 mg daily. Patient with GERD. At discharge she will continue with Pepcid 20 mg 1 pill twice daily. Patient with end-stage dementia. She will continue with Depakote 250 mg 1 pill twice daily and 500 mg at bedtime. Further adjustment in medication can be done by hospice. Medication for agitation will be provided by hospice is well. Patient also had pancytopenia related to sepsis. At discharge white count within normal range. Hemoglobin stable. Platelet count significantly improved. Recommend to recheck lab-CBC in 1-2 weeks to monitor stability. Vital Signs/Physical Exam: Temp Pulse Resp BP Pulse Ox 98.1 F 86 24 H 193/82 H 96 04/09/19 13:57 04/09/19 13:57 04/09/19 13:57 04/09/19 13:57 04/09/19 13:57 General: Alert, In no apparent distress, Cooperative HEENT: Atraumatic Neck: Supple Respiratory: Clear to auscultation bilaterally, Normal air movement Cardiovascular: Normal pulses, Regular rate/rhythm Gastrointestinal: Normal bowel sounds, Soft and benign, Non-distended, No tenderness, No masses, No rebound, No guarding Integumentary: No erythema, No warmth, No cyanosis Neurological: Normal speech, Normal strength at 5/5 x4 extr, Normal tone, Normal affect Laboratory Data at Discharge: WBC 5.9 K/uL (4.3-10.9) D 04/09/19 05:15 Hgb 11.1 g/dL (12.0-15.0) L 04/09/19 05:15 Hct 33.4 % (36.0-45.0) L 04/09/19 05:15 Plt Count 136 K/uL (152-406) L D 04/09/19 05:15 PT 14.0 SECONDS (9.5-12.5) H 04/07/19 10:13 INR 1.19 04/07/19 10:13 APTT 36.3 SECONDS (24.3-36.9) 04/07/19 10:13 Sodium 146 mmol/L (136-145) H 04/09/19 05:15 Potassium 4.0 mmol/L (3.5-5.1) 04/09/19 05:15 BUN 31 mg/dL (7-18) H 04/09/19 05:15 Creatinine 0.74 mg/dL (0.55-1.3) 04/09/19 05:15 Glucose 121 mg/dL (74-106) H 04/09/19 05:15 Phosphorus 3.1 mg/dL (2.5-4.9) 04/09/19 05:15 Magnesium 1.0 mg/dL (1.8-2.4) L* D 04/09/19 05:15 Total Bilirubin 0.5 mg/dL (0.2-1.0) 04/09/19 05:15 AST 14 U/L (15-37) L 04/09/19 05:15 ALT 17 U/L (12-78) 04/09/19 05:15 Alkaline Phosphatase 83 U/L (45-117) 04/09/19 05:15 Lipase 318 U/L (73-393) 04/07/19 10:13 Home Medications: Acetaminophen [Tylenol*] 650 mg PO Q6HP PRN 07/29/18 Albuterol Inhaler [Ventolin Inhaler*] 2 puff IH Q6H PRN 07/29/18 Divalproex Sodium [Depakote] 250 mg PO BID 07/29/18 Docusate Sodium 100 mg PO DAILY PRN 07/29/18 Famotidine [Pepcid*] 20 mg PO BID 07/29/18 Insulin Aspart [Novolog] See Protocol SQ ACHS 07/29/18 Insulin Glargine,Hum.rec.anlog [Lantus Solostar] 18 unit SQ DAILY 07/29/18 L. Acidophilus/Pectin, [place] [Acidophilus Capsule] 1 each PO DAILY 07/29/18 Thyroid Tab [[place] Thyroid*] 30 mg PO DAILY 07/29/18 Acetaminophen 650 mg PO Q6H PRN MDD 3 grams 04/07/19 Divalproex Sodium [Depakote Sprinkle] 500 mg PO BEDTIME 04/07/19 Guaifenesin [Sandy-Tussin] 5 ml PO Q8H PRN 04/07/19 Polyethylene Glycol 3350 [Miralax] 17 gm PO DAILY 04/07/19 Tramadol HCl [Ultram] 50 mg PO Q4H PRN 04/07/19 Albuterol Neb [Proventil 0.083% Neb Soln] 2.5 mg NEB TID PRN #90 amp 04/09/19 Arformoterol Tartrate [Brovana] 15 mcg NEB BIDRESP #60 vial.neb 04/09/19 Doxycycline Hyclate 100 mg PO BID #14 tablet 04/09/19 Furosemide [Lasix] 20 mg PO DAILY #30 tab 04/09/19 Spironolactone [Aldactone] 25 mg PO BID #60 tab 04/09/19 predniSONE [Prednisone*] 20 mg PO SEECOM #15 tab 04/09/19 New Medications: Albuterol Neb [Proventil 0.083% Neb Soln] 2.5 mg NEB TID PRN #90 amp PRN Reason: Shortness Of Breath Arformoterol Tartrate [Brovana] 15 mcg NEB BIDRESP #60 vial.neb Doxycycline Hyclate 100 mg PO BID #14 tablet Furosemide [Lasix] 20 mg PO DAILY #30 tab predniSONE [Prednisone*] 20 mg PO SEECOM #15 tab Spironolactone [Aldactone] 25 mg PO BID #60 tab Patient Discharge Instructions: 1. Patient is to return to longterm with hospice. 2. Patient presented with shortness of breath secondary to acute on chronic respiratory failure with sepsis. Toxic encephalopathy was noted. Patient was treated in the course of her stay. Patient found have UTI with urine culture positive for E. coli. Patient also found to have acute on chronic respiratory failure secondary to COPD exacerbation with hypoxia/ hypercapnia and acute on chronic diastolic CHF. During the course of her stay patient was treated and seen by pulmonology and cardiology. Patient required diuresis and COPD treatment. Her condition slightly improved. Chronic overall condition was poor. Discussion concerning long-term care address. Family desired hospice at discharge. At discharge his without any significant shortness of breath. Patient will return to the longterm with hospice. For her UTI she will continue with doxycycline 100 mg 1 pill twice daily for 7 days. Recommend to recheck urinalysis after that time to monitor resolution. Concerning her CHF she will continue with a 1500 cc per day fluid restriction and low-salt diet. Case discussed at length with pulmonology prior to discharge. Patient will continue with Lasix 20 mg daily and Aldactone 25 mg 1 pill twice daily. For her COPD patient will continue with oxygen to maintain sats above 93%. Patient will continue with COPD medication-Brovana 1 unit dose twice daily and 1 unit dose 3 times a day as needed for shortness of breath. Further adjustment in medication may be done by hospice. Consider repeat chest x-ray in 2-4 weeks to monitor stability. 3. Patient with Diabetes mellitus type 2 insulin dependent. Blood sugar remained stable during the course for stay. At discharge she will continue with her prior regimen of insulin therapy. Recommend blood sugar to remain less than 140 fasting and less than 200 after meals. Further adjustment can be done by hospice. 4. Patient with history of atrial fibrillation and hypertension. Medications were adjusted during her stay. Due to her sepsis patient required lower dose of blood pressure medication. At discharge she will continue with carvedilol 6.25 mg 1 pill twice daily. Recommend to monitor blood pressures daily. Recommend to maintain blood pressures less than 150/80. Further adjustment in carvedilol may be required if blood pressure continues to remain elevated. At discharge Norvasc has been discontinued as well. This may need to be restarted if blood pressure remains elevated. At discharge will recommend no further use of chronic anti coagulation therapy-Eliquis due to risk of fall and bleeding. 5. Patient with hypothyroidism. At discharge she will continue with [place] thyroid 30 mg daily. 6. Patient with GERD. At discharge she will continue with Pepcid 20 mg 1 pill twice daily. 7. Patient with end-stage dementia. She will continue with Depakote 250 mg 1 pill twice daily and 500 mg at bedtime. Further adjustment in medication can be done by hospice. Medication for agitation will be provided by hospice is well. 8. Patient also had pancytopenia related to sepsis. At discharge white count within normal range. Hemoglobin stable. Platelet count significantly improved. Recommend to recheck lab-CBC in 1-2 weeks to monitor stability. Diet: AHA Activity: Fall precautions Time spent managing pt's care (in minutes): 55
[2019-04-09] MEDS ORDERED: FUROSEMIDE 40 MG TABLET PO SCH (17:00)
[2019-04-09] MEDS ORDERED: DIVALPROEX NA 125 MG CAP PO SCH (21:00)
[2019-04-09] MEDS ORDERED: predniSONE 20 MG TAB PO SCH (21:00)
[2019-04-09] MEDS ORDERED: DIVALPROEX SODIUM 250 MG PO SCH (21:00)
[2019-04-09] MEDS ORDERED: FAMOTIDINE 20 MG TAB PO SCH (21:00)
[2019-04-09] MEDS ORDERED: CARVEDILOL 6.25 MG TAB PO SCH (21:00)
[2019-04-09] MEDS ORDERED: DOXYCYCLINE 100 MG CAP PO SCH (21:00)
[2019-04-10] MEDS ORDERED: LACTOBACILLUS/ACIDOPHILUS TAB PO SCH (09:00)
[2019-04-10] MEDS ORDERED: THIAMINE HCL 100 MG TABLET PO SCH (09:00)
[2019-04-10] MEDS ORDERED: THYROID 30 MG TAB PO SCH (09:00)
[2019-04-16 09:26] VITALS: BP 193/82; TEMP 98.1
== END 2019-04-09 17:55 | disposition hospice, inpatient (51) | DRG 871 ==
LOC: ER 09:46 → ERHOLD 11:59 → 4TH 13:49
PROVIDERS: ADMIT Family Medicine; ATTEND Family Medicine
DX: A41.9 Sepsis, unspecified organism (principal); G92 Toxic encephalopathy; J96.22 Acute and chronic respiratory failure with hypercapnia; J96.21 Acute and chronic respiratory failure with hypoxia; I50.33 Acute on chronic diastolic (congestive) heart failure; N39.0 Urinary tract infection, site not specified; J44.1 Chronic obstructive pulmonary disease with (acute) exacerbation; D61.818 Other pancytopenia; B96.20 Unspecified Escherichia coli [E. coli] as the cause of diseases classified elsewhere; I11.0 Hypertensive heart disease with heart failure; E11.9 Type 2 diabetes mellitus without complications; I48.91 Unspecified atrial fibrillation; K21.9 Gastro-esophageal reflux disease without esophagitis; F03.90 Unspecified dementia, unspecified severity, without behavioral disturbance, psychotic disturbance, mood disturbance, and anxiety; E03.9 Hypothyroidism, unspecified; Z88.0 Allergy status to penicillin; Z96.653 Presence of artificial knee joint, bilateral
CPT/HCPCS: 36415; 51702; 71045; 80048; 80053; 80076; 80164; 81003; 81015; 82550; 82553; 82805; 82947; 83605; 83690; 83735; 84100; 84145; 84484; 85025; 85027; 85610; 85730; 87040; 87077; 87086; 87088; 87186; 87804; 93005; 93306; 94640; 94660; 99285; C9113; J0456; J0696; J1650; J1940; J2920; J3411; J3475; J7030; J7512; J7605; P9047